=== PATIENT | female | born 1930 | race Caucasian/White ===

== ENCOUNTER 2016-05-04 14:30 | Inpatient (IN) | payer MEDICARE ==
--- NOTE | 2016-06-09 20:43 | HP ---
HISTORY AND PHYSICAL: DATE OF ADMISSION/SURGERY: 06/15/16 DATE OF OFFICE VISIT: 06/09/16 SURGEON: Yas Obando MD PROCEDURE: Left total hip arthroplasty. CHIEF COMPLAINT: Left hip pain. HISTORY OF PRESENT ILLNESS: Ms. Reddy is an 86-year-old female with complaints of left hip pain. She has severe osteoarthritis seen on x-rays. She has failed conservative management, has elected to proceed with left total hip arthroplasty, which is scheduled for 06/15/16. PAST MEDICAL HISTORY: Diabetes, hypertension, aortic valve stenosis, and mitral valve stenosis. PAST SURGICAL HISTORY: Hernia repair x2 and hysterectomy. CURRENT MEDICATIONS: 1. Lisinopril/hydrochlorothiazide. 2. Atenolol. 3. Metformin. 4. Aspirin. 5. Levsin. 6. Fish oil. 7. Calcium. 8. Vitamin C. 9. Vitamin D3. 10. Women's Multivitamin. 11. Glipizide. ALLERGIES: To TINCTURE OF BENZOIN. FAMILY HISTORY: Unknown. SOCIAL HISTORY: She is an 86-year-old female, she lives alone. She does not smoke, use drugs or alcohol. REVIEW OF SYSTEMS: A complete 14-point review of systems is reviewed with patient and it was positive for diabetes. She denies any anesthesia problems, history of DVT or PE. PHYSICAL EXAMINATION GENERAL: She is well-developed, well-nourished, in no acute distress. VITAL SIGNS: She stands 5 feet 2 inches tall, weighs 152 pounds, her blood pressure 154/74, and heart rate 63. HEENT: Normocephalic, atraumatic. NECK: Supple. No palpable lymph nodes. Trachea is midline. PULMONARY: The lungs are clear to auscultation bilaterally. No wheezes, rhonchi , or rales. CARDIO: Regular rate and rhythm. Strong S1 and S2. No murmurs, rubs, or gallops. No peripheral edema. ABDOMEN: Soft, nontender, and nondistended. NEUROLOGIC: She is alert and oriented x3. Cranial nerves II through XII are intact. MUSCULOSKELETAL: Left lower extremity, the skin is intact. She walks with a slightly antalgic-type gait favoring her left leg. She has limited range of motion with internal and external rotation of the left hip. Her lower extremity muscle group strengths are intact at 5/5. She has intact sensation and 2+ dorsalis pedis pulses. ASSESSMENT AND PLAN: Ms. Reddy is an 86-year-old female with continued complaints of left hip pain secondary to advanced osteoarthritis. She has failed conservative management, has elected to proceed with a left total hip arthroplasty which is scheduled for 06/15/[address] Obando discussed the risks and benefits of the surgery at today's visit and all other questions were answered. Coumadin, Colace, and Percocet were sent to her pharmacy for postoperative pain control and DVT prophylaxis. She will follow up with Dr. Obando in 14 days after the surgery. BALTA GAMBAO [id number]/[facility] #: [id number] MTDD
[2016-06-15] MEDS ORDERED: Buffered Lidocaine 1% SYR 3ML* 3 ML/SYR SYRINGE INTRADERM ONE (06:00)
[2016-06-15] MEDS ORDERED: ceFAZolin 2 GM PREMIX (*) 2 GM/50 ML BAG IVPB ONE (12:02)
[2016-06-15] MEDS ORDERED: fentaNYL* 50 MCG/ML 2 ML VIAL (100 MCG VIAL) ONE ×2 (12:54→16:22)
[2016-06-15] MEDS ORDERED: Midazolam* 1 MG/ML 2 ML VIAL (2 MG) ONE (12:54)
[2016-06-15] MEDS ORDERED: Bupivacaine 0.5% SDV PF* 30 ML VIAL ONE (13:00)
[2016-06-15] MEDS ORDERED: Atracurium* 10 MG/ML 10 ML VIAL ONE (13:07)
[2016-06-15] MEDS ORDERED: EPHEDrine (Pressors)* 50 MG/ML VIAL ONE (13:41)
[2016-06-15] MEDS ORDERED: Lidocaine 2% PF * 5 ML VIAL ONE (13:41)
[2016-06-15] MEDS ORDERED: Propofol* 10 MG/ML 20 ML BTL IV PUSH ONE (13:41)
[2016-06-15] MEDS ORDERED: Morphine INJ* 10 MG/ML 1 ML CARPUJECT ONE (14:12)
[2016-06-15] MEDS ORDERED: fentaNYL* 50 MCG/ML 2 ML VIAL (100 MCG VIAL) IV PRN (14:21)
[2016-06-15] MEDS ORDERED: Ondansetron ODT TAB* 4 MG PO PRN (14:21)
[2016-06-15] MEDS ORDERED: Ketorolac INJ* 30 MG/ML 1 ML VIAL IV PRN (14:21)
[2016-06-15] MEDS ORDERED: HYDROmorphone INJ* 1 MG/ML CARPUJECT SYRINGE IV PRN (14:21)
[2016-06-15] MEDS ORDERED: DiMENhydriNATE IV* 50 MG/ML VIAL IV PUSH PRN (14:21)
[2016-06-15] MEDS ORDERED: oxyCODONE/Acetamin 5/325 MG* TAB PO PRN (15:26)
[2016-06-15] MEDS ORDERED: Morphine INJ* 2 MG/ML 1 ML CARPUJECT IV PRN (15:26)
[2016-06-15] MEDS ORDERED: Ondansetron TAB* 4 MG PO PRN (15:26)
[2016-06-15] MEDS ORDERED: Polyethylene Glycol 3350* 17 GM PACKET PO PRN (15:26)
[2016-06-15] MEDS ORDERED: Acetaminophen TAB* 325 MG PO PRN (15:26)
[2016-06-15] MEDS ORDERED: oxyCODONE TAB* 5 MG TAB PO PRN (15:26)
[2016-06-15] MEDS ORDERED: Ondansetron INJ* 2 MG/ML VIAL IV PRN (15:26)
[2016-06-15] MEDS ORDERED: diPHENhydraMINE IV* 50 MG/ML 1 ml VIAL (BENADRYL) IV PRN (15:26)
[2016-06-15] MEDS ORDERED: Bisacodyl SUPP* 10 MG SUPP PR PRN (15:26)
--- NOTE | 2016-06-15 15:34 | RAD ---
INDICATION: Left total hip replacement COMPARISON: Hips March 08, 2016 TECHNIQUE/findings: A single crosstable lateral portable view the pelvis shows initiation of left hip arthroplasty with a femoral stem placed for sizing.
[2016-06-15] MEDS ORDERED: Ketorolac INJ* 30 MG/ML 1 ML VIAL ONE (16:22)
--- NOTE | 2016-06-15 16:48 | RAD ---
INDICATION: Left total hip replacement COMPARISON: Pelvis June 15, 2016 TECHNIQUE: AP and crosstable lateral views of the left hip were obtained FINDINGS: There is left hip arthroplasty. The prosthesis appears well seated IMPRESSION: STATUS POST LEFT HIP ARTHROPLASTY.
--- NOTE | 2016-06-15 16:49 | RAD ---
INDICATION: Left hip arthroplasty COMPARISON: Hips March 08, 2016 TECHNIQUE: A single AP view of the pelvis is submitted. FINDINGS: There is left hip arthroplasty. Both femoral and acetabular components appear well seated. There is underlying osteopenia. There is osteoarthritis about the right hip. IMPRESSION: LEFT HIP ARTHROPLASTY. THE PROSTHESIS APPEARS WELL SEATED.
[2016-06-15] MEDS ORDERED: Warfarin TAB(*) 6 MG PO ONE (20:00)
[2016-06-15] MEDS: Docusate CAP* 100 MG PO SCH (20:41)
[2016-06-15] MEDS ORDERED: Dextrose 50% Syringe 50 ML* 25 GM/50 ML SYRINGE IV PUSH PRN (20:44)
[2016-06-15] MEDS ORDERED: metFORMIN* 1,000 MG TAB PO SCH (21:00)
[2016-06-15] MEDS: Atenolol TAB* 50 MG PO SCH (21:40)
[2016-06-15] MEDS: ceFAZolin 1 GM in Dextrose (*) 1 GM/50 ML BAG IVPB SCH (21:40)
[2016-06-16] MEDS: ceFAZolin 1 GM in Dextrose (*) 1 GM/50 ML BAG IVPB SCH ×2 (05:13→13:41)
[2016-06-16] MEDS: oxyCODONE/Acetamin 5/325 MG* TAB PO PRN ×4 (05:23→21:03)
[2016-06-16 06:09] LABS: Hematocrit 34 % (35-47); Hemoglobin 11.4 g/dl (12.0-16.0); Mean Corpuscular HGB Conc 33 g/dl (31-36); Mean Corpuscular Hemoglobin 30 pg (27-31); Mean Corpuscular Volume 89 fL (80-97); Mean Platelet Volume 8 um3 (7.4-10.4); Red Blood Count 3.83 10^6/ul (4.0-5.4); Red Cell Distribution Width 14 % (10.5-15)
[2016-06-16 06:22] LABS: BUN/Creatinine Ratio 22.2 (8-20); Calcium 8.4 mg/dL (8.6-10.3); EGFR African American 99.2 (>60); EGFR Non-African American 77.2 (>60); Potassium 4.1 mmol/L (3.5-5.0)
--- NOTE | 2016-06-16 07:40 | PN ---
Progress Note - Progress Note SOAP: Subjective: Pt. is confused this AM, thinks it is Tuesday. Alert to person and place. Objective: LLE - dressing c/d/i, thigh soft, distally +df/pf, full sens lt, 2+ dp pulse. Vital Signs: Temp Pulse Resp BP Pulse Ox 98.2 F 69 16 103/42 97 06/16/16 07:25 06/16/16 07:25 06/16/16 07:25 06/16/16 07:25 06/16/16 07:25 Laboratory Results - last 24 hr 06/15/16 06/15/16 06/16/16 12:26 21:43 05:51 WBC 13.0 H RBC 3.83 L Hgb 11.4 L Hct 34 L MCV 89 MCH 30 MCHC 33 RDW 14 Plt Count 177 MPV 8 Neut % (Auto) 77.3 Lymph % (Auto) 14.3 L Ward % (Auto) 8.0 Eos % (Auto) 0.1 Baso % (Auto) 0.3 Absolute Neuts (auto) 10.1 H Absolute Lymphs (auto) 1.9 Absolute Monos (auto) 1.0 H Absolute Eos (auto) 0 Absolute Basos (auto) 0 Absolute Nucleated RBC 0 Nucleated RBC % 0 INR (Anticoag Therapy) Sodium Potassium Chloride Carbon Dioxide Anion Gap BUN Creatinine Est GFR ( Amer) Est GFR (Non-Af Amer) BUN/Creatinine Ratio Glucose POC Glucose (mg/dL) 135 H 140 H Calcium 06/16/16 06/16/16 06/16/16 05:51 05:51 07:33 WBC RBC Hgb Hct MCV MCH MCHC RDW Plt Count MPV Neut % (Auto) Lymph % (Auto) Ward % (Auto) Eos % (Auto) Baso % (Auto) Absolute Neuts (auto) Absolute Lymphs (auto) Absolute Monos (auto) Absolute Eos (auto) Absolute Basos (auto) Absolute Nucleated RBC Nucleated RBC % INR (Anticoag Therapy) 1.14 H Sodium 131 L Potassium 4.1 Chloride 97 L Carbon Dioxide 30 Anion Gap 4 BUN 16 Creatinine 0.72 Est GFR ( Amer) 99.2 Est GFR (Non-Af Amer) 77.2 BUN/Creatinine Ratio 22.2 H Glucose 169 H POC Glucose (mg/dL) 157 H Calcium 8.4 L Assessment: 86 yo F pod 1 s/p LTHA Plan: wbat lle with post hip precautions pt/ot today oobtc for meals 6 mg coumadin tonight, cont lovenox plan pmru vs snf
[2016-06-16] MEDS: Insulin LISPRO* 1 UNITS UNIT SUBCUT SCH ×3 (08:09→17:52)
[2016-06-16] MEDS: Docusate CAP* 100 MG PO SCH ×2 (08:10→21:03)
[2016-06-16] MEDS: Atenolol TAB* 50 MG PO SCH ×2 (08:10→21:00)
[2016-06-16] MEDS ORDERED: Lisinopril TAB* 10 MG PO SCH (09:00)
[2016-06-16] MEDS: Enoxaparin(*) 30 MG/0.3 ML SYR SUBCUT SCH (12:43)
--- NOTE | 2016-06-16 13:30 | CONS ---
CONSULTATION REPORT: * DATE OF CONSULTATION: 06/15/16 ADDENDUM: Ms. Reddy is an 86-year-old female with history of diabetes and hypertension, who is status post elective knee surgery performed by Dr. Obando today. Medicine was requested in management of her chronic medical conditions. For further details of the patient's presentation and plan, please see consultation report dictated by Luz Barrera NP on 06/15/16 with which I agree. [id number]/[facility] #: [id number] MTDD
--- NOTE | 2016-06-16 15:01 | CONS ---
AMENDED REPORT NOW INCLUDES COSIGNER - ESIGNED BEFORE ADJUSTMENTS ATTENDING PHYSICIAN ADDENDUM NOW INCLUDED ON THIS REPORT CONSULTATION REPORT: DATE OF CONSULT: 06/15/16 PRIMARY CARE PROVIDER: Dr. Merrick Mccullough. ATTENDING PHYSICIAN: Dr. Edna Abel *(dictated by Luz Nava NP) PHYSICIAN REQUESTING CONSULTATION: Yas Obando MD REASON FOR CONSULTATION: Co-medical management. HISTORY OF PRESENT ILLNESS: Ms. Reddy is an 86-year-old female with past medical history significant for diabetes mellitus, hypertension, and osteoarthritis who underwent an elective left total hip arthroplasty with Dr. Obando. Postoperatively, the patient is doing well. The patient states that leading up to her surgery, she has been in a good state of health with the exception of left hip pain. The patient denies any fever, chills, chest pain, shortness of breath or edema. Hospitalists were asked to assist with the management of this patient during the postoperative period. PAST MEDICAL HISTORY: 1. Diabetes mellitus type 2. 2. Hypertension. 3. Aortic valve stenosis and mitral valve stenosis. 4. Osteoarthritis. PAST SURGICAL HISTORY: 1. Status post hernia repair x2. 2. Status post hysterectomy in 1966. HOME MEDICATIONS: Include: 1. Metformin 1000 mg oral twice daily. 2. Fluzone in 2016. 3. Lisinopril 20 mg oral daily. 4. Hydrochlorothiazide 25 mg oral daily. 5. Atenolol 100 mg oral twice daily. 6. Tylenol 650 mg oral 4 times daily as needed for fever or pain. 7. Glipizide ER 10 mg oral daily. 8. Aspirin 325 mg oral daily. 9. Multivitamin one tablet oral daily. 10. Vitamin D3 2000 units oral daily. 11. Calcium/vitamin D 600/800 two tablets daily. 12. Vitamin C 500 mg oral daily. 13. Fish oil 2000 mg oral daily. 14. Lecithin 1200 mg oral daily. ALLERGIES: Tincture of benzoin. FAMILY HISTORY: The patient's father passed at age 97 from old age. The patient's mother had a history of diabetes and passed at age 79 due to bladder cancer. The patient had a maternal uncle with history of diabetes. The patient denied any other family history of coronary artery disease, cancer, or diabetes mellitus. SOCIAL HISTORY: The patient denies tobacco, alcohol, or recreational drug use. She lives alone. Her daughter, Agnieszka Lopez, and son, Arnaldo Ibrahim, will be her surrogate decision makers in the event she is unable to make decisions for herself. REVIEW OF SYSTEMS: I performed a 14-point review of systems. All the pertinent positives and negatives are mentioned in the history of present illness. The remaining review of systems are negative. PHYSICAL EXAMINATION: Vital Signs: Temperature 96.8, heart rate 50, respiratory rate 12, O2 sat 100% on 2 L via nasal cannula, blood pressure 160/ 68. Appearance: The patient is alert, appears to be in no acute distress. HEENT: Normocephalic, atraumatic. Pupils are equal and reactive to light. Extraocular movements are intact. Neck: Supple. There is no lymphadenopathy noted. Cardiovascular: Regular rate and rhythm. S1 and S2 are crisp. There are no murmurs, rubs, or gallops heard. Extremities: There is no lower extremity edema. DP and PT pulses are 2+ and symmetric. Respiratory: There is no accessory muscle use. Lungs are clear to auscultation bilaterally. Abdomen: Soft, nontender, nondistended. There are bowel sounds present x4. Musculoskeletal: There is no clubbing or cyanosis noted. The patient exhibits good strength in all extremities. Skin: There is a dressing to the left hip that is clean, dry, and intact. Neurological: Cranial nerves II through XII are grossly intact. The patient moves all extremities. Psychological: The patient is calm and cooperative. DIAGNOSTIC STUDIES/LAB DATA: Preoperative laboratory data from 06/09/16 - sodium 133, potassium 4.0, chloride 94, CO2 33, BUN 17, creatinine 0.78, glucose 118. White blood cell count 10.6, hemoglobin 14.5, hematocrit 43, and platelet count 243. Urinalysis was significant for trace leukocyte esterase, 1 + wbc's, squamous epithelial cells present, 1+ bacteria, and glucose 2+. Pelvis x-ray from today at 1330. Radiologist impression: A single cross-table lateral portable view of the pelvis shows initiation of left hip arthroplasty with a femoral stent placed for sizing. Left hip x-ray from today. Radiologist impression: Status post left hip arthroplasty. Pelvis x-ray from today at 1600. Radiologist's impression: Left hip arthroplasty. The prosthesis appears well seated. IMPRESSION: Ms. Reddy is an 86-year-old female with past medical history significant for diabetes mellitus, hypertension, aortic valve and mitral valve stenosis and osteoarthritis, who underwent an elective left total hip arthroplasty with Dr. Obando. Hospitalists were asked to assist with co- management of this patient during her hospitalization. PLAN: 1. Status post left total hip arthroplasty. Postoperative day. Management per Orthopedic Surgery. The patient's hemoglobin and hematocrit will be trended. She will start physical therapy and occupational therapy in the morning. The patient's urinary catheter will remain in place until the morning of postop day #1. The patient will be weightbearing as tolerated. 2. Hypertension. In the perioperative period, we will hold the patient's hydrochlorothiazide and lisinopril. Her atenolol will be continued. We will consider resuming the patient's lisinopril and hydrochlorothiazide in the morning based off of her blood pressures. 3. Diabetes mellitus. We will hold the patient's glipizide and metformin. She will be placed on lispro sliding scale insulin coverage with fingersticks a.c. and h.s. 4. Fluids, electrolytes, and nutrition. The patient will be on a clear liquid diet. Advance as tolerated to consistent carbohydrate diet. 5. DVT prophylaxis. The patient will be on Lovenox and warfarin per Orthopedic Surgery. 6. Code status. Full code. DISPOSITION: Inpatient. Disposition per Orthopedic Surgery. TIME SPENT: The time for this consultation was 60 minutes, and 30 minutes was spent [id number] with the patient and daughter discussing medications, past medical history and the events leading up to her arrival today and performing a physical examination. The case has been reviewed with the attending, Dr. Abel, who agrees with the plan of care. Reviewed by ADAMS BLANCO 06/16/16 1700 DATE OF CONSULTATION: 06/15/16 ADDENDUM: Ms. Reddy is an 86-year-old female with history of diabetes and hypertension, who is status post elective knee surgery performed by Dr. Obando today. Medicine was requested in management of her chronic medical conditions. For further details of the patient's presentation and plan, please see consultation report dictated by Luz Nava NP on 06/15/16 with which I agree. EDNA ABEL MD CC: Dr. Merrick Mccullough; Dr. Obando * [id number]/[facility] #: [id number] A- [id number]/[facility] #: [id number] [facility]
--- NOTE | 2016-06-16 16:43 | PN ---
Subjective Date of Service: 06/16/16 Interval History: Patient seen and examined at bedside. Pt states that she is feeling well today, but had some pain issues around afternoon Physical Therapy. Denies fever, chills , shortness of breath, chest discomfort, urinary symptoms, V/D. Pt reports some nausea earlier today. Pt also states that she was treated for a UTI last week, completing her treatment on Tuesday. Family History: Unchanged from Admission Social History: Unchanged from Admission Past Medical History: Unchanged from Admission Objective Active Medications: Acetaminophen (Tylenol Tab*) 650 mg PO Q4H PRN Reason: PAIN OR TEMPERATURE Atenolol (Tenormin Tab*) 100 mg PO BID JOANNA Bisacodyl (Dulcolax Supp*) 10 mg RI DAILY PRN Reason: constipation Dextrose (D50w Syringe 50 Ml*) 12.5 gm IV PUSH .FOR FS < 60 - SS PRN Reason: FS < 60 Diphenhydramine HCl (Benadryl Iv*) 12.5 mg IV Q6H PRN Reason: PRURITIS Docusate Sodium (Colace Cap*) 100 mg PO BID JOANNA Enoxaparin Sodium (Lovenox(*)) 30 mg SUBCUT Q24H JOANNA Lactated Ringer's (Lactated Ringers 1000 Ml Bag*) 1,000 mls @ 100 mls/hr IV PER RATE [facility] Insulin Human Lispro (Humalog*) 0 - 10 units SUBCUT AC [facility] Reason: Protocol Lactulose (Lactulose*) 30 ml PO Q6H PRN Reason: constipation Lisinopril (Prinivil Tab*) 20 mg PO DAILY [facility] Magnesium Hydroxide (Milk Of Magnesia Liq*) 30 ml PO Q6H PRN Reason: constipation Morphine Sulfate (Morphine Inj (Syringe)*) 2 mg IV Q2H PRN Reason: PAIN Ondansetron HCl (Zofran Inj*) 4 mg IV Q6H PRN Reason: nausea Ondansetron HCl (Zofran Tab*) 4 mg PO Q6H PRN Reason: NAUSEA Oxycodone HCl (Roxycodone Tab*) 10 mg PO Q4H PRN Reason: SEVERE PAIN Oxycodone/Acetaminophen (Percocet 5/325 Tab*) 1 tab PO Q3H PRN Reason: PAIN - MODERATE Oxycodone/Acetaminophen (Percocet 5/325 Tab*) 2 tab PO Q3H PRN Reason: PAIN - MODERATE Polyethylene Glycol/Electrolytes (Miralax*) 17 gm PO DAILY PRN Reason: Constipation Warfarin Sodium (Coumadin Tab(*)) 6 mg PO DAILY@1700 JOANNA Vital Signs 06/15/16 06/15/16 06/15/16 16:25 16:30 16:45 Temperature Pulse Rate 59 54 Respiratory 14 12 10 Rate Blood Pressure 164/79 166/73 (mmHg) O2 Sat by Pulse 99 100 Oximetry 06/15/16 06/15/16 06/15/16 17:00 17:15 17:30 Temperature 96.8 F Pulse Rate 60 51 50 Respiratory 12 10 12 Rate Blood Pressure 164/70 167/83 160/68 (mmHg) O2 Sat by Pulse 100 100 100 Oximetry 06/15/16 06/15/16 06/15/16 18:00 18:30 19:00 Temperature Pulse Rate 50 52 52 Respiratory 16 16 18 Rate Blood Pressure 138/62 163/68 164/66 (mmHg) O2 Sat by Pulse 100 100 100 Oximetry 06/15/16 06/15/16 06/15/16:17 20:17 21:18 Temperature 97.2 F 98.2 F 96.9 F Pulse Rate 55 52 58 Respiratory 18 16 16 Rate Blood Pressure 188/72 149/63 152/63 (mmHg) O2 Sat by Pulse 100 100 98 Oximetry 06/15/16 06/16/16 06/16/16 23:29 00:00 01:22 Temperature 97.8 F 97.8 F Pulse Rate 58 61 Respiratory 16 16 Rate Blood Pressure 146/57 155/55 (mmHg) O2 Sat by Pulse 100 100 100 Oximetry 06/16/16 06/16/16 06/16/16 04:13 05:23 07:23 Temperature 98.4 F Pulse Rate 68 Respiratory 16 18 16 Rate Blood Pressure 156/60 (mmHg) O2 Sat by Pulse 100 Oximetry 06/16/16 06/16/16 06/16/16 07:25 07:53 08:00 Temperature 98.2 F Pulse Rate 69 Respiratory 16 18 Rate Blood Pressure 103/42 118/58 (mmHg) O2 Sat by Pulse 97 97 Oximetry 06/16/16 06/16/16 06/16/16 08:43 10:43 11:38 Temperature 98.0 F Pulse Rate 63 Respiratory 18 16 16 Rate Blood Pressure 98/34 (mmHg) O2 Sat by Pulse 100 Oximetry 06/16/16 06/16/16 06/16/16 11:42 12:44 14:17 Temperature Pulse Rate Respiratory 18 18 Rate Blood Pressure 102/40 (mmHg) O2 Sat by Pulse Oximetry 06/16/16 06/16/16 15:15 16:02 Temperature 97.9 F Pulse Rate 71 Respiratory 18 Rate Blood Pressure 103/37 128/54 (mmHg) O2 Sat by Pulse 94 Oximetry Oxygen Devices in Use Now: None Appearance: NAD, laying in bed. Eyes: No Scleral Icterus, PERRLA Ears/Nose/Mouth/Throat: NL Teeth, Lips, Gums, Mucous Membranes Moist Neck: NL Appearance and Movements; NL JVP, Trachea Midline Respiratory: Symmetrical Chest Expansion and Respiratory Effort, Clear to Auscultation Cardiovascular: RRR, - Abdominal: NL Sounds; No Tenderness; No Distention - Bowel sounds present Extremities: No Edema Skin: No Rash or Ulcers, - - Dressing to left hip clean, dry and intact. Neurological: Alert and Oriented x 3, NL Muscle Strength and Tone Lines/Tubes/Other Access: Clean, Dry and Intact Peripheral IV - site benign. Nutrition: Taking PO's Result Diagrams: 06/16/16 05:51 06/16/16 05:51 Assess/Plan/Problems-Billing Assessment: Ms. Reddy is an 86 yo femalw with PMH significant for DM, HTN, AV and MV stenosis, and osteoarthritis who presented to the hospital for an elective left total hip arthroplasty with Dr. Obando on 06/15/16. - Patient Problems (1) Status post total hip replacement, left Code(s): Z96.642 - PRESENCE OF LEFT ARTIFICIAL HIP JOINT SNOMED Code(s): 184812971055 Comment: - Management per Ortho - Continue to trend HH - Continue PT/OT, pain managment, bowel regime (2) Diabetes Code(s): E11.9 - TYPE 2 DIABETES MELLITUS WITHOUT COMPLICATIONS SNOMED Code(s) : 18082182 Comment: - Controlled, glucose 150-180's - Continue Lispro SS - Resume home oral medications at discharge (3) HTN (hypertension) Code(s): I10 - ESSENTIAL (PRIMARY) HYPERTENSION SNOMED Code(s): 87746152 Comment: - SBP 90-150's - Continue Atenolol with hold parameters - Continue to hold lisinopril and HCTZ for now (4) DVT prophylaxis Code(s): LEX5355 - SNOMED Code(s): 707225660 Comment: - Continue Lovenox and Warfarin per Ortho (5) Full code status Code(s): Z78.9 - OTHER SPECIFIED HEALTH STATUS SNOMED Code(s): 571897151 Status and Disposition: Inpatient. Disposition per Ortho
[2016-06-16] MEDS ORDERED: Warfarin TAB(*) 6 MG PO SCH (17:00)
--- NOTE | 2016-06-16 22:54 | OP ---
DATE OF OPERATION: 06/15/16 - ROOM #349 DATE OF : 34 ATTENDING SURGEON: Yas Obando MD. PROCESS TRAINER: BALTA Foster. ANESTHESIOLOGIST: Dr. Pettit. ANESTHESIA: Spinal with general. 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 OPERATIVE PROCEDURE: Left total hip arthroplasty. HARDWARE USED: Uncemented Sha total hip hardware. For the cup, a Trident hemispherical acetabular shell 50D, two screws, length 20 were used. For the insert, a Trident X3 0-degree polyethylene insert 36D. For the femoral stem, an Accolade TMZF size 3, with a 127 degree neck. For the head, a Biolox delta ceramic V40 femoral head, 36, -5. COMPLICATIONS: None. ESTIMATED BLOOD LOSS: 300 cc. SPECIMEN: Femoral head and acetabular reaming, sent to Pathology. BRIEF HISTORY/INDICATIONS: Ms. Denney is an 86-year-old female with years of increasingly severe left hip pain. She failed conservative treatment with antiinflammatories, pain medications, ambulatory assistive devices, and physical therapy. Radiographs showed [id number] arthritis of the left hip joint as well as protrusio of the acetabulum. A CT scan confirmed this. The patient elected to undergo a left total hip arthroplasty due to continued pain and decreased quality of life. Informed consent was obtained from the patient. She understood the risks of surgery included, but were not limited to, bleeding, infection, damage to nearby structures, continued pain, need for further surgery, intraoperative fracture, nerve palsy, hardware failure, loosening, dislocation, leg length discrepancy, stroke, heart attack, blood clot , and . She wished to proceed. Specific to this patient were increased risk of intraoperative fracture due to osteopenia and acetabular protrusio. INTRAOPERATIVE FINDINGS: Intraoperatively, the patient was noted to have the above mentioned protrusio of the acetabulum. This made dislocation of the hip very difficult. Extensive deformation of both the acetabular and femoral head bone. Complete loss of cartilage. Extensive subchondral sclerosis was noted. Osteopenia was noted. DESCRIPTION OF PROCEDURE: Ms. Reddy was identified in the preanesthesia unit. Her left lower extremity was marked as the correct operative site. Informed consent was signed and placed in the chart. The patient was taken to the operating room and placed under spinal anesthesia. A Garzon catheter was placed. The patient was placed in the right lateral decubitus position on the Pegboard. All bony prominences were well padded. Lower extremity was prepped and dapped in the usual sterile fashion. Preop time-out was made to correctly identify the patient side and site. Appropriate perioperative antibiotics were given within 1 hour of incision. A 12-cm posterior hip incision was made with a 10-blade. Electrocautery was used to dissect down to the fascial layer. Fascial layer incised in line with the skin incision. Charnley retractor was placed and the posterior aspect of the hip joint was visualized. The piriformis and conjoint tendons were identified. These were elevated off the posterolateral femur using electrocautery and tagged with two #5 Ethibond. Next the posterior capsular flap was made with electrocautery and also tagged with two #5 Ethibond. Posterior aspect of the hip joint was visualized. There was extensive osteophyte formation. Some posterior acetabular osteophytes were carefully removed. The hip was carefully dislocated. Dislocating the hip was difficult due to the extreme deformation of the acetabular and femoral head. Using gentle dislocation maneuver, the hip was carefully dislocated. Lesser trochanter to the center of the femoral head measured 50 mm. Oscillating saw was used to make the appropriate femoral neck cut. Femoral head was sent to Pathology after bone graft was collected from it. The femur was carefully retracted anteriorly. After appropriate placement of retractors, the acetabulum was visualized. There was a large osteophyte rim around the acetabulum. Long-handled knife was used to remove any remaining labrum from the acetabular rim. The acetabulum was then sequentially reamed up to a size 50. A small curette was used to remove cystic material from some subchondral cyst. This area was then packed with femoral head bone graft. The 50 trial had good fit in the acetabulum. There was a bleeding bone bed. Size 50 multihole Trident acetabular cuff was chosen. This was impacted into the acetabulum. The cuff had good stability. Two 20-mm screws were placed in the superior posterior quadrant for extra stability. A 36-D Trident X30 liner was chosen. This was impacted into the acetabulum without difficulty. Stability of the liner was checked and rechecked and noted to be stable. Attention was then turned to preparation of the femur. Canal finder was used to enter the proximal femur and once again osteopenia was noted. The femoral canal was sequentially broached up to a size 3. A 127-degree neck trial was chosen as well as a 36, -5 femoral head trial. Lesser trochanter to the center of the head measured 50 mm. The hip was reduced and taken through range of motion. The hip was stable in all positions. Good soft tissue tension and leg lengths were approximate. The hip was carefully dislocated. All trials were carefully removed. Final implant was chosen with an Accolade TMZF size 3 with a 127-degree neck. This was impacted into the femoral canal without difficulty. The stem was stable. A 36, -5 ceramic Biolox delta V40 femoral head was chosen and impacted on to the femoral neck. The hip was reduced and taken through a range of motion. The hip was stable in all positions. There was good soft tissue tension and approximate leg length. The hip was copiously irrigated with sterile saline. The previously tagged capsule and tendons were reapproximated to the posterolateral femur through two trochanteric drill holes. The lateral fascial layer was reapproximated using interrupted #1 Vicryl. The rest of the incision was closed in a layered fashion using 0 and 2-0 Vicryl. The skin was closed using running 3-0 Monocryl suture with Dermabond. Sterile Adaptic, 4 x 4, and paper tapes were used to cover the incision. The patient's anesthesia was reversed without difficulty. She was taken to the PACU in stable condition. Intended weightbearing will be weightbearing as tolerated with posterior hip precautions. Intended DVT prophylaxis will be Coumadin with a Lovenox bridge. [id number]/[facility] #: [id number] [facility] CENTERMadisyn
[2016-06-17] MEDS: oxyCODONE/Acetamin 5/325 MG* TAB PO PRN ×3 (03:56→12:51)
[2016-06-17 04:58] LABS: Hematocrit 29 % (35-47); Hemoglobin 9.5 g/dl (12.0-16.0); Mean Corpuscular HGB Conc 33 g/dl (31-36); Mean Corpuscular Hemoglobin 29 pg (27-31); Mean Corpuscular Volume 90 fL (80-97); Mean Platelet Volume 8 um3 (7.4-10.4); Red Blood Count 3.23 10^6/ul (4.0-5.4); Red Cell Distribution Width 13 % (10.5-15); White Blood Count 13.9 10^3/ul (3.5-10.8)
[2016-06-17 05:13] LABS: BUN/Creatinine Ratio 22.5 (8-20); Calcium 8.5 mg/dL (8.6-10.3); EGFR African American 100.9 (>60); EGFR Non-African American 78.4 (>60); Potassium 3.6 mmol/L (3.5-5.0)
[2016-06-17] MEDS: Insulin LISPRO* 1 UNITS UNIT SUBCUT SCH ×3 (07:40→17:31)
--- NOTE | 2016-06-17 08:36 | PN ---
Progress Note - Progress Note SOAP: Subjective: []Patient seen at bedside, eating breakfast. Alert and oriented X3. Feels well. Pain well managed. Denies SOB, chest pain or dizziness. Deciding with family where she would like to go for rehabilitation. Objective: [] Vital Signs Temp 97.9 F 06/17/16 07:24 Pulse 73 06/17/16 07:24 Resp 20 06/17/16 07:24 BP 110/44 06/17/16 07:36 Pulse Ox 95 06/17/16 07:24 Intake & Output 06/16/16 06/17/16 06/17/16 18:59 06:59 18:59 Intake Total 2230 900 Output Total 250 700 150 Balance 1979 200 -150 Intake: IV Fluids 1130 LR 1030 cefazolin 100 Oral 1100 900 Output: Urine 250 700 150 Other: # Bowel Movements 0 Laboratory Results - last 24 hr 06/16/16 06/16/16 06/16/16 12:12 17:38 21:01 WBC RBC Hgb Hct MCV MCH MCHC RDW Plt Count MPV Neut % (Auto) Lymph % (Auto) [place] % (Auto) Eos % (Auto) Baso % (Auto) Absolute Neuts (auto) Absolute Lymphs (auto) Absolute Monos (auto) Absolute Eos (auto) Absolute Basos (auto) Absolute Nucleated RBC Nucleated RBC % INR (Anticoag Therapy) Sodium Potassium Chloride Carbon Dioxide Anion Gap BUN Creatinine Est GFR ( Amer) Est GFR (Non-Af Amer) BUN/Creatinine Ratio Glucose POC Glucose (mg/dL) 188 H 163 H 194 H Calcium 06/17/16 06/17/16 06/17/16 04:15 04:15 04:15 WBC 13.9 H RBC 3.23 L Hgb 9.5 L Hct 29 L MCV 90 MCH 29 MCHC 33 RDW 13 Plt Count 152 MPV 8 Neut % (Auto) 69.5 Lymph % (Auto) 21.0 L [place] % (Auto) 7.8 Eos % (Auto) 0.9 Baso % (Auto) 0.8 Absolute Neuts (auto) 9.6 H Absolute Lymphs (auto) 2.9 Absolute Monos (auto) 1.1 H Absolute Eos (auto) 0.1 Absolute Basos (auto) 0.1 Absolute Nucleated RBC 0 Nucleated RBC % 0 INR (Anticoag Therapy) 1.45 H Sodium 126 L Potassium 3.6 Chloride 94 L Carbon Dioxide 27 Anion Gap 5 BUN 16 Creatinine 0.71 Est GFR ( Amer) 100.9 Est GFR (Non-Af Amer) 78.4 BUN/Creatinine Ratio 22.5 H Glucose 164 H POC Glucose (mg/dL) Calcium 8.5 L 06/17/16 07:34 WBC RBC Hgb Hct MCV MCH MCHC RDW Plt Count MPV Neut % (Auto) Lymph % (Auto) [place] % (Auto) Eos % (Auto) Baso % (Auto) Absolute Neuts (auto) Absolute Lymphs (auto) Absolute Monos (auto) Absolute Eos (auto) Absolute Basos (auto) Absolute Nucleated RBC Nucleated RBC % INR (Anticoag Therapy) Sodium Potassium Chloride Carbon Dioxide Anion Gap BUN Creatinine Est GFR ( Amer) Est GFR (Non-Af Amer) BUN/Creatinine Ratio Glucose POC Glucose (mg/dL) 170 H Calcium Left hip dressing taken down and changed Wound without any drainage, healing well calf non tender and soft +DF and PF neuro intact distally Assessment: []s/p Left total hip arthroplasty POD #2 Plan: []PT/OT WBAT Coumadin with Lovenox bridge PMRU vs SNF rehab, possibly 06/18
[2016-06-17] MEDS: Docusate CAP* 100 MG PO SCH ×2 (08:53→22:19)
[2016-06-17] MEDS: Magnesium Hydroxide LIQ* 30 ML UDC PO PRN ×2 (08:54→14:30)
[2016-06-17] MEDS: Atenolol TAB* 50 MG PO SCH ×2 (11:40→22:19)
[2016-06-17] MEDS: Enoxaparin(*) 30 MG/0.3 ML SYR SUBCUT SCH (12:49)
--- NOTE | 2016-06-17 12:58 | PN ---
Subjective Date of Service: 06/17/16 Interval History: Patient seen and examined at bedside. Denies fever, chills, shortness of breath , chest discomfort, N/V/D, urinary symptoms. Pt feels more forgetful today. Pt states she was able to ambulate to the door this AM with PT. Family History: Unchanged from Admission Social History: Unchanged from Admission Past Medical History: Unchanged from Admission Objective Active Medications: Acetaminophen (Tylenol Tab*) 650 mg PO Q4H PRN Reason: PAIN OR TEMPERATURE Atenolol (Tenormin Tab*) 100 mg PO BID JOANNA Bisacodyl (Dulcolax Supp*) 10 mg MD DAILY PRN Reason: constipation Dextrose (D50w Syringe 50 Ml*) 12.5 gm IV PUSH .FOR FS < 60 - SS PRN Reason: FS < 60 Diphenhydramine HCl (Benadryl Iv*) 12.5 mg IV Q6H PRN Reason: PRURITIS Docusate Sodium (Colace Cap*) 100 mg PO BID JOANNA Enoxaparin Sodium (Lovenox(*)) 30 mg SUBCUT Q24H JOANNA Insulin Human Lispro (Humalog*) 0 - 10 units SUBCUT AC JOANNA Reason: Protocol Lactulose (Lactulose*) 30 ml PO Q6H PRN Reason: constipation Magnesium Hydroxide (Milk Of Magnesia Liq*) 30 ml PO Q6H PRN Reason: constipation Morphine Sulfate (Morphine Inj (Syringe)*) 2 mg IV Q2H PRN Reason: PAIN Ondansetron HCl (Zofran Inj*) 4 mg IV Q6H PRN Reason: nausea Ondansetron HCl (Zofran Tab*) 4 mg PO Q6H PRN Reason: NAUSEA Oxycodone HCl (Roxycodone Tab*) 10 mg PO Q4H PRN Reason: SEVERE PAIN Oxycodone/Acetaminophen (Percocet 5/325 Tab*) 1 tab PO Q3H PRN Reason: PAIN - MODERATE Oxycodone/Acetaminophen (Percocet 5/325 Tab*) 2 tab PO Q3H PRN Reason: PAIN - MODERATE Polyethylene Glycol/Electrolytes (Miralax*) 17 gm PO DAILY PRN Reason: Constipation Warfarin Sodium (Coumadin Tab(*)) 4 mg PO ONCE@1700 ONE Stop: 06/17/16 17:01 Vital Signs 02/06/16/16 06/16/16 14:17 14:44 15:15 Temperature 97.9 F Pulse Rate 71 Respiratory 18 18 18 Rate Blood Pressure 103/37 (mmHg) O2 Sat by Pulse 94 Oximetry 06/16/16 06/16/16 06/16/16 16:00 16:02 16:17 Temperature Pulse Rate Respiratory 18 Rate Blood Pressure 128/54 (mmHg) O2 Sat by Pulse 94 Oximetry 06/16/16 06/16/16 06/16/16 19:53 20:00 20:59 Temperature 97.5 F 97.9 F Pulse Rate 62 67 Respiratory 16 18 18 Rate Blood Pressure 95/39 99/40 (mmHg) O2 Sat by Pulse 95 95 Oximetry 06/16/16 06/16/16 06/17/16 21:03 23:03 00:06 Temperature 98.0 F Pulse Rate 78 Respiratory 16 18 16 Rate Blood Pressure 118/48 (mmHg) O2 Sat by Pulse 93 Oximetry 06/17/16 06/17/16 06/17/16 03:56 03:59 05:56 Temperature 98.4 F Pulse Rate 74 Respiratory 18 18 16 Rate Blood Pressure 112/43 (mmHg) O2 Sat by Pulse 94 Oximetry 06/17/16 06/17/16 06/17/16 07:24 07:36 08:00 Temperature 97.9 F Pulse Rate 73 Respiratory 20 16 Rate Blood Pressure 99/39 110/44 (mmHg) O2 Sat by Pulse 95 95 Oximetry 06/17/16 06/17/16 06/17/16 08:54 10:48 10:54 Temperature 97.7 F Pulse Rate 72 Respiratory 18 16 Rate Blood Pressure 88/36 (mmHg) O2 Sat by Pulse 92 Oximetry 06/17/16 11:32 Temperature 97.9 F Pulse Rate 73 Respiratory 20 Rate Blood Pressure 106/37 (mmHg) O2 Sat by Pulse 91 Oximetry Oxygen Devices in Use Now: None Appearance: NAD, sitting up in a chair Eyes: No Scleral Icterus, PERRLA Ears/Nose/Mouth/Throat: NL Teeth, Lips, Gums, Mucous Membranes Moist Neck: NL Appearance and Movements; NL JVP, Trachea Midline Respiratory: Symmetrical Chest Expansion and Respiratory Effort, Clear to Auscultation Cardiovascular: NL Sounds; No Murmurs; No JVD, RRR - , occasional irregular beat Abdominal: NL Sounds; No Tenderness; No Distention Extremities: - - Trace bilateral LE edema Skin: - - Dressing to left hip clean, dry and intact. Neurological: Alert and Oriented x 3 - , forgetful, NL Muscle Strength and Tone Lines/Tubes/Other Access: Clean, Dry and Intact Peripheral IV - site benign Nutrition: Taking PO's Result Diagrams: 06/17/16 04:15 06/17/16 04:15 Assess/Plan/Problems-Billing Assessment: Ms. Reddy is an 86 yo femalw with PMH significant for DM, HTN, AV and MV stenosis, and osteoarthritis who presented to the hospital for an elective left total hip arthroplasty with Dr. Obando on 06/15/16. - Patient Problems (1) Status post total hip replacement, left Code(s): Z96.642 - PRESENCE OF LEFT ARTIFICIAL HIP JOINT SNOMED Code(s): 594195512000 Comment: - POD #2 - Management per Ortho - Continue to trend HH - Continue PT/OT, pain managment, bowel regime (2) Hyponatremia Code(s): E87.1 - HYPO-OSMOLALITY AND HYPONATREMIA SNOMED Code(s): 25849559 Comment: - Suspect related to LR. LR was stopped this AM - Recheck labs in the AM (3) Diabetes Code(s): E11.9 - TYPE 2 DIABETES MELLITUS WITHOUT COMPLICATIONS SNOMED Code(s) : 51363259 Comment: - Controlled, glucose 160-230's - Continue Lispro SS - Resume home oral medications at discharge (4) HTN (hypertension) Code(s): I10 - ESSENTIAL (PRIMARY) HYPERTENSION SNOMED Code(s): 90646213 Comment: - SBP 90-110's - Continue Atenolol with hold parameters - Continue to hold lisinopril and HCTZ for now (5) DVT prophylaxis Code(s): BTR5111 - SNOMED Code(s): 153233975 Comment: - Continue Lovenox and Warfarin per Ortho (6) Full code status Code(s): Z78.9 - OTHER SPECIFIED HEALTH STATUS SNOMED Code(s): 587326724 Status and Disposition: Inpatient. Disposition per Ortho
[2016-06-17] MEDS ORDERED: Warfarin TAB(*) 6 MG PO SCH (17:00)
[2016-06-17] MEDS ORDERED: Warfarin TAB(*) 4 MG PO ONE (17:00)
[2016-06-17] MEDS ORDERED: oxyCODONE TAB* 5 MG TAB PO PRN (19:21)
[2016-06-17] MEDS: Acetaminophen TAB* 325 MG PO SCH (22:20)
[2016-06-18] MEDS: Acetaminophen TAB* 325 MG PO SCH (06:24)
[2016-06-18 07:18] LABS: Hematocrit 28 % (35-47); Hemoglobin 9.3 g/dl (12.0-16.0); Mean Corpuscular HGB Conc 34 g/dl (31-36); Mean Corpuscular Hemoglobin 30 pg (27-31); Mean Corpuscular Volume 89 fL (80-97); Mean Platelet Volume 8 um3 (7.4-10.4); Red Blood Count 3.14 10^6/ul (4.0-5.4); Red Cell Distribution Width 14 % (10.5-15); White Blood Count 12.6 10^3/ul (3.5-10.8)
[2016-06-18 07:31] LABS: BUN/Creatinine Ratio 23.2 (8-20); Calcium 8.5 mg/dL (8.6-10.3); EGFR African American 132.6 (>60); EGFR Non-African American 103.1 (>60)
[2016-06-18 07:36] VITALS: BP 145/58
[2016-06-18] MEDS: Docusate CAP* 100 MG PO SCH (08:47)
[2016-06-18] MEDS: Atenolol TAB* 50 MG PO SCH (08:47)
[2016-06-18] MEDS: Insulin LISPRO* 1 UNITS UNIT SUBCUT SCH (08:48)
--- NOTE | 2016-06-18 10:49 | PN ---
Progress Note - Progress Note SOAP: Subjective: [86 year old female s/p Left BROWN. Patient reports feeling well, admits to confusion around the operative peiord, "I have to remind myself I had surgery". Denies pain, N/V. Overall feeling well. Eager for D/C to [facility]. VSS, + BM] Objective: [General- Well appearing, NAD MSK- Dresssing removed, area c/D/I, no erythema noted, mild swelling, no drainage. extension to 0, PT 2+ b/l, neg homans, sensation to light touch intact, + dorsi/plantarfelxion b/l LE"s. ] Vital Signs Temp 97.5 F 06/18/16 07:23 Pulse 75 06/18/16 07:23 Resp 24 06/18/16 07:36 BP 145/58 06/18/16 07:23 Pulse Ox 96 06/18/16 07:23 Intake & Output 06/17/16 06/18/16 06/18/16 18:59 06:59 18:59 Intake Total 1622 1100 Output Total 700 1900 200 Balance 922 -800 -200 Intake: IV Fluids 782 LR 782 Oral 840 1100 Output: Urine 700 1900 200 Other: Estimated Void Medium Date of Last Bowel 06/17/16 Movement Estimated Stool Amount Large Small # Voids 1 Laboratory Results - last 24 hr 06/17/16 06/17/16 06/17/16 12:15 17:18 22:09 WBC RBC Hgb Hct MCV MCH MCHC RDW Plt Count MPV Neut % (Auto) Lymph % (Auto) [place] % (Auto) Eos % (Auto) Baso % (Auto) Absolute Neuts (auto) Absolute Lymphs (auto) Absolute Monos (auto) Absolute Eos (auto) Absolute Basos (auto) Absolute Nucleated RBC Nucleated RBC % INR (Anticoag Therapy) Sodium Potassium Chloride Carbon Dioxide Anion Gap BUN Creatinine Est GFR ( Amer) Est GFR (Non-Af Amer) BUN/Creatinine Ratio Glucose POC Glucose (mg/dL) 232 H 184 H 230 H Calcium 06/18/16 06/18/16 06/18/16 06:41 06:41 06:41 WBC 12.6 H RBC 3.14 L Hgb 9.3 L Hct 28 L MCV 89 MCH 30 MCHC 34 RDW 14 Plt Count 166 MPV 8 Neut % (Auto) 70.9 Lymph % (Auto) 18.8 L [place] % (Auto) 9.2 H Eos % (Auto) 0.8 Baso % (Auto) 0.3 Absolute Neuts (auto) 8.9 H Absolute Lymphs (auto) 2.4 Absolute Monos (auto) 1.2 H Absolute Eos (auto) 0.1 Absolute Basos (auto) 0 Absolute Nucleated RBC 0 Nucleated RBC % 0 INR (Anticoag Therapy) 1.74 H Sodium 127 L Potassium 4.0 Chloride 95 L Carbon Dioxide 27 Anion Gap 5 BUN 13 Creatinine 0.56 Est GFR ( Amer) 132.6 Est GFR (Non-Af Amer) 103.1 BUN/Creatinine Ratio 23.2 H Glucose 176 H POC Glucose (mg/dL) Calcium 8.5 L 06/18/16 07:49 WBC RBC Hgb Hct MCV MCH MCHC RDW Plt Count MPV Neut % (Auto) Lymph % (Auto) [place] % (Auto) Eos % (Auto) Baso % (Auto) Absolute Neuts (auto) Absolute Lymphs (auto) Absolute Monos (auto) Absolute Eos (auto) Absolute Basos (auto) Absolute Nucleated RBC Nucleated RBC % INR (Anticoag Therapy) Sodium Potassium Chloride Carbon Dioxide Anion Gap BUN Creatinine Est GFR ( Amer) Est GFR (Non-Af Amer) BUN/Creatinine Ratio Glucose POC Glucose (mg/dL) 185 H Calcium Active Medications Generic Name Dose Route Start Last Admin Trade Name Freq PRN Reason Stop Dose Admin Acetaminophen 975 mg 06/17/16 22:00 06/18/16 06:24 Tylenol Tab* PO 975 mg Q8H JOANNA Administration Atenolol 100 mg 06/16/16 21:00 06/18/16 08:47 Tenormin Tab* PO 100 mg BID JOANNA Administration Bisacodyl 10 mg 06/15/16 15:26 Dulcolax Supp* FL DAILY PRN constipation Dextrose 12.5 gm 06/15/16 20:44 D50w Syringe 50 Ml* IV PUSH .FOR FS < 60 - SS PRN FS < 60 Diphenhydramine HCl 12.5 mg 06/15/16 15:26 Benadryl Iv* IV Q6H PRN PRURITIS Docusate Sodium 100 mg 06/15/16 21:00 06/18/16 08:47 Colace Cap* PO 100 mg BID JOANNA Administration Enoxaparin Sodium 30 mg 06/16/16 13:00 06/17/16 12:49 Lovenox(*) SUBCUT 30 mg Q24H JOANNA Administration Insulin Human Lispro 0 - 10 units 06/16/16 07:30 06/18/16 08:48 Humalog* SUBCUT 2 units AC JOANNA Administration Protocol Lactulose 30 ml 06/15/16 15:26 Lactulose* PO Q6H PRN constipation Magnesium Hydroxide 30 ml 06/15/16 15:26 06/17/16 14:30 Milk Of Magnesia Liq* PO 30 ml Q6H PRN Administration constipation Morphine Sulfate 2 mg 06/15/16 15:26 Morphine Inj (Syringe)* IV Q2H PRN PAIN Ondansetron HCl 4 mg 06/15/16 15:26 Zofran Inj* IV Q6H PRN nausea Ondansetron HCl 4 mg 06/15/16 15:26 Zofran Tab* PO Q6H PRN NAUSEA Oxycodone HCl 5 mg 06/17/16 19:21 Roxycodone Tab* PO Q4H PRN SEVERE PAIN Polyethylene Glycol/Electrolytes 17 gm 06/15/16 15:26 Miralax* PO DAILY PRN Constipation Assessment: [86 year old female s/p Left BROWN. ] Plan: []- D/C today to [facility] - Coumadin for DVT prophylaxis, continue lovenox today - Follow up with DR Obando within 10-14 days - Hyponatermia - recheck within 2 days - continue PT/ OT
--- NOTE | 2016-06-18 10:55 | DS ---
Discharge Summary Date of Admission: 06/15/2106 Date of Discharge: 06/18/2016 Provider: Dr. 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 She tolerated the procedure well and there were no complications. The patient had spinal with general anesthesia and was quite comfortable in the immediate postoperative period. On POD#1 the patients H&H was 11.4/34. Dressing was CDI, she was neurovascularly intact with good sensation distal to the hip. She could demonstrate dorsi and plantar flexion with good strength. Participation in physical and occupational therapy was begun. Pain management was controlled with oral Percocet. On POD#2 the urinary catheter was discontinued and the patient was able to void spontaneously. The dressing was changed and the wound was found to be benign with minimal drainage and erythema. Vital signs were stable and the patient was afebrile. POD#3 bowel and bladder had normalized and the patient was cleared by physical therapy for safe discharge to home with services. She will continue with the exercises learned with physical therapy and arrangements were made for visiting home physical therapy as well. At discharge the H&H was 9.2/28, vital signs were stable and the INR value was 1.74. The patient was discharged with a prescription for Coumadin 2 mg. The INR will be monitored on Mondays and and the Coumadin dose adjusted accordingly. The patient will resume the home medications as indicated in the discharge instructions. Sutures will be removed in 10-[address] Padilla office. New medications at discharge: Percocet 5/325 mg 1-2 tabs po Q4-6 hours prn pain Coumadin 2 mg 1-3 tablets by mouth at 5 pm daily as directed /17- 4mg 2/18- 4mg /- 4mg INR check 06/21 Colace 100 mg 1 po BID Continue home medications: Atenolol 100mg BID Tylenol 325mg PO q6 hours with care not to exceed 4000mg tylenol/ day Glipizide 10 mg PO daily HCTZ 25 mg PO daily Prinivil 20mg PO daily MVI one tablet daily Metformin 1000mg PO BID Condition: Stable Disposition: Discharge to [facility] for further rehabilitation Follow up: - Patient will follow up with Dr. Hector Obadno in 10-14 days at [facility] - The patient will require repeat BMP test for hyponatermia within 1-2 days 06/15/16 06/15/16 06/16/16 12:26 21:43 05:51 WBC 13.0 H RBC 3.83 L Hgb 11.4 L Hct 34 L MCV 89 MCH 30 MCHC 33 RDW 14 Plt Count 177 MPV 8 Neut % (Auto) 77.3 Lymph % (Auto) 14.3 L Cooper % (Auto) 8.0 Eos % (Auto) 0.1 Baso % (Auto) 0.3 Absolute Neuts (auto) 10.1 H Absolute Lymphs (auto) 1.9 Absolute Monos (auto) 1.0 H Absolute Eos (auto) 0 Absolute Basos (auto) 0 Absolute Nucleated RBC 0 Nucleated RBC % 0 INR (Anticoag Therapy) Sodium Potassium Chloride Carbon Dioxide Anion Gap BUN Creatinine Est GFR ( Amer) Est GFR (Non-Af Amer) BUN/Creatinine Ratio Glucose POC Glucose (mg/dL) 135 H 140 H Calcium 06/16/16 06/16/16 06/16/16 05:51 05:51 07:33 WBC RBC Hgb Hct MCV MCH MCHC RDW Plt Count MPV Neut % (Auto) Lymph % (Auto) Cooper % (Auto) Eos % (Auto) Baso % (Auto) Absolute Neuts (auto) Absolute Lymphs (auto) Absolute Monos (auto) Absolute Eos (auto) Absolute Basos (auto) Absolute Nucleated RBC Nucleated RBC % INR (Anticoag Therapy) 1.14 H Sodium 131 L Potassium 4.1 Chloride 97 L Carbon Dioxide 30 Anion Gap 4 BUN 16 Creatinine 0.72 Est GFR ( Amer) 99.2 Est GFR (Non-Af Amer) 77.2 BUN/Creatinine Ratio 22.2 H Glucose 169 H POC Glucose (mg/dL) 157 H Calcium 8.4 L 06/16/16 06/16/16 06/16/16 12:12 17:38 21:01 WBC RBC Hgb Hct MCV MCH MCHC RDW Plt Count MPV Neut % (Auto) Lymph % (Auto) Cooper % (Auto) Eos % (Auto) Baso % (Auto) Absolute Neuts (auto) Absolute Lymphs (auto) Absolute Monos (auto) Absolute Eos (auto) Absolute Basos (auto) Absolute Nucleated RBC Nucleated RBC % INR (Anticoag Therapy) Sodium Potassium Chloride Carbon Dioxide Anion Gap BUN Creatinine Est GFR ( Amer) Est GFR (Non-Af Amer) BUN/Creatinine Ratio Glucose POC Glucose (mg/dL) 188 H 163 H 194 H Calcium 06/17/16 06/17/16 06/17/16 04:15 04:15 04:15 WBC 13.9 H RBC 3.23 L Hgb 9.5 L Hct 29 L MCV 90 MCH 29 MCHC 33 RDW 13 Plt Count 152 MPV 8 Neut % (Auto) 69.5 Lymph % (Auto) 21.0 L Cooper % (Auto) 7.8 Eos % (Auto) 0.9 Baso % (Auto) 0.8 Absolute Neuts (auto) 9.6 H Absolute Lymphs (auto) 2.9 Absolute Monos (auto) 1.1 H Absolute Eos (auto) 0.1 Absolute Basos (auto) 0.1 Absolute Nucleated RBC 0 Nucleated RBC % 0 INR (Anticoag Therapy) 1.45 H Sodium 126 L Potassium 3.6 Chloride 94 L Carbon Dioxide 27 Anion Gap 5 BUN 16 Creatinine 0.71 Est GFR ( Amer) 100.9 Est GFR (Non-Af Amer) 78.4 BUN/Creatinine Ratio 22.5 H Glucose 164 H POC Glucose (mg/dL) Calcium 8.5 L 06/17/16 06/17/16 06/17/16 07:34 12:15 17:18 WBC RBC Hgb Hct MCV MCH MCHC RDW Plt Count MPV Neut % (Auto) Lymph % (Auto) Cooper % (Auto) Eos % (Auto) Baso % (Auto) Absolute Neuts (auto) Absolute Lymphs (auto) Absolute Monos (auto) Absolute Eos (auto) Absolute Basos (auto) Absolute Nucleated RBC Nucleated RBC % INR (Anticoag Therapy) Sodium Potassium Chloride Carbon Dioxide Anion Gap BUN Creatinine Est GFR ( Amer) Est GFR (Non-Af Amer) BUN/Creatinine Ratio Glucose POC Glucose (mg/dL) 170 H 232 H 184 H Calcium 06/17/16 06/18/16 06/18/16 22:09 06:41 06:41 WBC 12.6 H RBC 3.14 L Hgb 9.3 L Hct 28 L MCV 89 MCH 30 MCHC 34 RDW 14 Plt Count 166 MPV 8 Neut % (Auto) 70.9 Lymph % (Auto) 18.8 L Cooper % (Auto) 9.2 H Eos % (Auto) 0.8 Baso % (Auto) 0.3 Absolute Neuts (auto) 8.9 H Absolute Lymphs (auto) 2.4 Absolute Monos (auto) 1.2 H Absolute Eos (auto) 0.1 Absolute Basos (auto) 0 Absolute Nucleated RBC 0 Nucleated RBC % 0 INR (Anticoag Therapy) 1.74 H Sodium Potassium Chloride Carbon Dioxide Anion Gap BUN Creatinine Est GFR ( Amer) Est GFR (Non-Af Amer) BUN/Creatinine Ratio Glucose POC Glucose (mg/dL) 230 H Calcium 06/18/16 06/18/16 06:41 07:49 WBC RBC Hgb Hct MCV MCH MCHC RDW Plt Count MPV Neut % (Auto) Lymph % (Auto) Cooper % (Auto) Eos % (Auto) Baso % (Auto) Absolute Neuts (auto) Absolute Lymphs (auto) Absolute Monos (auto) Absolute Eos (auto) Absolute Basos (auto) Absolute Nucleated RBC Nucleated RBC % INR (Anticoag Therapy) Sodium 127 L Potassium 4.0 Chloride 95 L Carbon Dioxide 27 Anion Gap 5 BUN 13 Creatinine 0.56 Est GFR ( Amer) 132.6 Est GFR (Non-Af Amer) 103.1 BUN/Creatinine Ratio 23.2 H Glucose 176 H POC Glucose (mg/dL) 185 H Calcium 8.5 L Active Medications Generic Name Dose Route Start Last Admin Trade Name Freq PRN Reason Stop Dose Admin Acetaminophen 975 mg 06/17/16 22:00 06/18/16 06:24 Tylenol Tab* PO 975 mg Q8H JOANNA Administration Atenolol 100 mg 06/16/16 21:00 06/18/16 08:47 Tenormin Tab* PO 100 mg BID JOANNA Administration Bisacodyl 10 mg 06/15/16 15:26 Dulcolax Supp* CT DAILY PRN constipation Dextrose 12.5 gm 06/15/16 20:44 D50w Syringe 50 Ml* IV PUSH .FOR FS < 60 - SS PRN FS < 60 Diphenhydramine HCl 12.5 mg 06/15/16 15:26 Benadryl Iv* IV Q6H PRN PRURITIS Docusate Sodium 100 mg 06/15/16 21:00 06/18/16 08:47 Colace Cap* PO 100 mg BID JOANNA Administration Enoxaparin Sodium 30 mg 06/16/16 13:00 06/17/16 12:49 Lovenox(*) SUBCUT 30 mg Q24H JOANNA Administration Insulin Human Lispro 0 - 10 units 06/16/16 07:30 06/18/16 08:48 Humalog* SUBCUT 2 units AC JOANNA Administration Protocol Lactulose 30 ml 06/15/16 15:26 Lactulose* PO Q6H PRN constipation Magnesium Hydroxide 30 ml 06/15/16 15:26 06/17/16 14:30 Milk Of Magnesia Liq* PO 30 ml Q6H PRN Administration constipation Morphine Sulfate 2 mg 06/15/16 15:26 Morphine Inj (Syringe)* IV Q2H PRN PAIN Ondansetron HCl 4 mg 06/15/16 15:26 Zofran Inj* IV Q6H PRN nausea Ondansetron HCl 4 mg 06/15/16 15:26 Zofran Tab* PO Q6H PRN NAUSEA Oxycodone HCl 5 mg 06/17/16 19:21 Roxycodone Tab* PO Q4H PRN SEVERE PAIN Polyethylene Glycol/Electrolytes 17 gm 06/15/16 15:26 Miralax* PO DAILY PRN Constipation Vital Signs Temp 97.5 F 06/18/16 07:23 Pulse 75 06/18/16 07:23 Resp 24 06/18/16 07:36 BP 145/58 06/18/16 07:23 Pulse Ox 96 06/18/16 07:23 Intake & Output 06/17/16 06/18/16 06/18/16 18:59 06:59 18:59 Intake Total 1622 1100 Output Total 700 1900 200 Balance 922 -800 -200 Intake: IV Fluids 782 LR 782 Oral 840 1100 Output: Urine 700 1900 200 Other: Estimated Void Medium Date of Last Bowel 06/17/16 Movement Estimated Stool Amount Large Small # Voids 1
== END 2016-06-18 11:45 | DRG 470 ==
LOC: AA 06-15 11:58 → SSU 06-15 19:15
PROVIDERS: ADMIT Orthopaedic Surgery Adult Reconstructive Orthopaedic Surgery; ATTEND Orthopaedic Surgery Adult Reconstructive Orthopaedic Surgery
PROC: 0SRB04A Replacement of Left Hip Joint with Ceramic on Polyethylene Synthetic Substitute, Uncemented, Open Approach (ICD-10-PCS; principal; 2016-06-15 13:30)
DX: M16.12 Unilateral primary osteoarthritis, left hip (principal); E11.9 Type 2 diabetes mellitus without complications; I34.2 Nonrheumatic mitral (valve) stenosis; E87.1 Hypo-osmolality and hyponatremia; I10 Essential (primary) hypertension; D72.829 Elevated white blood cell count, unspecified; M85.862 Other specified disorders of bone density and structure, left lower leg; M24.7 Protrusio acetabuli; M25.752 Osteophyte, left hip; I35.0 Nonrheumatic aortic (valve) stenosis; Z83.3 Family history of diabetes mellitus; Z80.52 Family history of malignant neoplasm of bladder; Z79.82 Long term (current) use of aspirin; Z79.899 Other long term (current) drug therapy; Z79.84 Long term (current) use of oral hypoglycemic drugs; Z88.8 Allergy status to other drugs, medicaments and biological substances
CPT/HCPCS: 36415; 72170; 80048; 85025; 85610; 88304; 88311; A9270-GY; C1713; C1776; J0690; J1650; J1885; J2250; J2270; J2704; J3010

== ENCOUNTER 2017-12-18 10:03 | Emergency (ER) | payer MEDICARE ==
[2017-12-18 10:15] VITALS: BP 175/87
--- NOTE | 2017-12-18 12:00 | UC ---
Complaint Female HPI - HPI Summary HPI Summary: c/o eye irritation for one day, denies pain, itching or discharge, was not aware of its presence until she looked in the mirror. Denies fever, chills, flank pain. Denies blurred vision or trauma besides occasional scratching. She also submitted a sample of urine since she has long standing urinary frequency. She denies burning, or anything above baseline. - History Of Current Complaint Chief Complaint: UCGU Stated Complaint: EYE ISSUE/ URINARY ISSUE Time Seen by Provider: 12/18/17 11:51 Hx Obtained From: Patient Hx Last Menstrual Period: "Years ago." Pain Intensity: 0 - Allergies/Home Medications Allergies/Adverse Reactions: Allergies Allergy/AdvReac Type Severity Reaction Status Date / Time benzoin Allergy Swelling Verified 12/18/17 10:15 PMH/Surg Hx/FS Hx/Imm Hx Endocrine History: Diabetes Cardiovascular History: Hypertension Other History Of: Negative For: HIV, Hepatitis B, Hepatitis C, Anticoagulant Therapy - Surgical History Surgical History: Yes Surgery Procedure, Year, and Place: hernia repair x2. hysterectomy. left total hip replacement 06/2016 - Family History Known Family History: Positive: Diabetes, Other - cancer Negative: Cardiac Disease, Hypertension - Social History Alcohol Use: None Substance Use Type: None Smoking Status (MU): Never Smoked Tobacco - Immunization History Most Recent Influenza Vaccination: 2016 Most Recent Tetanus Shot: 2005 Most Recent Pneumonia Vaccination: 2014 Review of Systems Constitutional: Negative Eyes: Eye Redness ENT: Negative Respiratory: Negative Cardiovascular: Negative Gastrointestinal: Negative Genitourinary: Frequency, Urgency Motor: Negative Neurovascular: Negative Musculoskeletal: Negative Neurological: Negative Psychological: Negative All Other Systems Reviewed And Are Negative: Yes Physical Exam Triage Information Reviewed: Yes Appearance: Well-Appearing, No Pain Distress, Well-Nourished Vital Signs: Initial Vital Signs Temp 98.7 F 12/18/17 10:12 Pulse 63 12/18/17 10:12 Resp 18 12/18/17 10:12 BP 175/87 12/18/17 10:12 Pulse Ox 98 12/18/17 10:12 Vital Signs Reviewed: Yes Eyes: Positive: Other: - hematoma on lateral conjunctiva . DIONY, EOM wnl, no discharge, eyelid without erythema or edema ENT: Positive: Hearing grossly normal, Pharynx normal, TMs normal Neck exam: Normal Neck: Positive: Supple, Nontender, No Lymphadenopathy Respiratory: Positive: Chest non-tender, Lungs clear, Normal breath sounds, No respiratory distress Cardiovascular: Positive: RRR, No Murmur, Pulses Normal, Brisk Capillary Refill Abdomen Description: Positive: Nontender, No Organomegaly, Soft Complaint Female Dx - Course Course Of Treatment: discussed diagnosis with patient, to use artificial tears to avoid dry eye and not to scratch with resolution of the hemorrhage within 7- 10 days. F/u PCP and ophthalmology for routine care. Urine culture was submitted, awaiting results in 48 hr - Differential Dx/Diagnosis Provider Diagnoses: subconjunctival hemorrhage Discharge - Sign-Out/Discharge Documenting (check all that apply): Patient Departure - Discharge Plan Condition: Good Disposition: HOME Patient Education Materials: Subconjunctival Hemorrhage (ED) Referrals: Jazmín Bravo MD [Primary Care Provider] - - Billing Disposition and Condition Condition: GOOD Disposition: Home
== END 2017-12-18 12:42 | disposition home or self-care (01) ==
LOC: UCEAST 10:03
DX: H11.30 Conjunctival hemorrhage, unspecified eye (principal); Z88.8 Allergy status to other drugs, medicaments and biological substances; E11.9 Type 2 diabetes mellitus without complications; I10 Essential (primary) hypertension
CPT/HCPCS: 81003; 87086; 99212; G0463

== ENCOUNTER 2018-12-15 11:26 | Emergency (ER) | payer MEDICARE ==
[2018-12-15 11:44] VITALS: BP 159/76
--- NOTE | 2018-12-15 12:42 | UC ---
Skin Complaint HPI - HPI Summary HPI Summary: 88-year-old female presents with a rash under her breasts and to groin area worsening over the past month. Patient denies pain but reports intermittent itching, rashes worse with the heat. Patient has been trying Desitin cream but has not improved. No fevers or chills. Patient has a history of mild dementia but lives alone and takes care of herself. Daughter at bedside. - History of Current Complaint Chief Complaint: UCRash Time Seen by Provider: 12/15/18 12:09 Stated Complaint: RASH Hx Last Menstrual Period: "Years ago." Pain Intensity: 0 - Allergy/Home Medications Allergies/Adverse Reactions: Allergies Allergy/AdvReac Type Severity Reaction Status Date / Time benzoin Allergy Swelling Verified 12/15/18 11:45 Home Medications: Home Medications Cyanocobalamin (Vitamin B-12) [Vitamin B-12] 1 tab PO DAILY 12/15/18 [History Confirmed 12/15/18] PMH/Surg Hx/FS Hx/Imm Hx Previously Healthy: Yes Neurological History: Dementia Other History Of: Negative For: HIV, Hepatitis B, Hepatitis C, Anticoagulant Therapy - Surgical History Surgical History: Yes Surgery Procedure, Year, and Place: hernia repair x2. hysterectomy. left total hip replacement 06/2016 - Family History Known Family History: Positive: Diabetes, Other - cancer Negative: Cardiac Disease, Hypertension - Social History Lives: Alone Alcohol Use: None Substance Use Type: None Smoking Status (MU): Never Smoked Tobacco - Immunization History Most Recent Influenza Vaccination: 2016 Most Recent Tetanus Shot: 2005 Most Recent Pneumonia Vaccination: 2014 Review of Systems All Other Systems Reviewed And Are Negative: Yes Skin: Positive: Rash Physical Exam - Summary Physical Exam Summary: General: Well appearing, no distress Cardiovascular: Skin is well perfused Pulmonary: No respiratory distress, no tachypnea Abdomen: Non-distended Skin: Small brown macule w scaling to left jehovah's witness w actinic keratosis , small intersperse macules to axilla, and groin consistent with seborrheic keratosis, erythematous patches below breasts and in groin, and gluteal folds c/w casi MSK: no edema Psych: Normal affect Neuro: A&Ox3 Vital Signs: Initial Vital Signs Temp 36.3 C 12/15/18 11:39 Pulse 69 12/15/18 11:39 Resp 18 12/15/18 11:39 BP 159/76 12/15/18 11:39 Pulse Ox 98 12/15/18 11:39 Course/Dx - Course Course Of Treatment: 88-year-old female presents with dermatitis under the breasts, and in groin and gluteal folds We'll treat with ketoconazole cream daily for 2 weeks Patient also has areas of actinic keratosis (chronic). Small lesion to left jehovah's witness, advised that she should follow-up with dermatology to rule out malignancy - Diagnoses Provider Diagnosis: Intertriginous candidiasis, Actinic keratosis of left side of forehead Discharge - Sign-Out/Discharge Documenting (check all that apply): Patient Departure All imaging exams completed and their final reports reviewed: No Studies - Discharge Plan Condition: Stable Disposition: HOME Prescriptions: Ketoconazole 2 % CREAM (NF) [Nizoral 2% CREAM (NF)] 1 applic TOPICAL DAILY 14 Days tube Ketoconazole 2 % CREAM (NF) [Nizoral 2% CREAM (NF)] 1 applic TOPICAL DAILY 14 Days #1 tube Patient Education Materials: Skin Yeast Infection (ED) Referrals: Jazmín Bravo MD [Primary Care Provider] - Additional Instructions: You were seen for a fungal infection of the skin. Please use the antifungal cream once a day for 2 weeks. Please follow up with dermatology regarding the lesion on your face. - Billing Disposition and Condition Condition: STABLE Disposition: Home
== END 2018-12-15 12:50 | disposition home or self-care (01) ==
LOC: UCEAST 11:26
DX: B37.2 Candidiasis of skin and nail (principal); L57.0 Actinic keratosis; F03.90 Unspecified dementia, unspecified severity, without behavioral disturbance, psychotic disturbance, mood disturbance, and anxiety
CPT/HCPCS: 99212; G0463

== ENCOUNTER 2019-04-10 11:36 | Inpatient (IN) | payer MEDICARE ==
--- OUTSIDE RECORDS SUMMARY | 2019-04-10 11:50 | XMS REPORT | Summary of Care ---
:1930 Author Organization [facility] Address [address] [place] [address] Care Team Providers Name Role Phone Jazmín Bravo MD Primary Care Provider Reason for Visit Reason Comments Lab Work Only last done 01/05/19, Pt is fasting Diabetes A1c 7.5 on 01/05/19 Hypertension f/u BP 102/60 Weight Loss significant wt loss in three months, poor appetite Encounter Details Date Type Department Care Team Description 04/05/2019 Office Visit Nicolas Bravo, Type 2 diabetes mellitus with microalbuminuria, without long-term current use of insulin (HCC) (Primary Dx); Practice Jazmín Foss MD Essential (primary) hypertension; [address] [facility] [facility] Memory deficit; [place] [address] [place] [address] Unsteady gait; [phone] B12 deficiency; Dementia without behavioral disturbance, unspecified dementia type (HCC) Allergies Active Allergy Reactions Severity Noted Date Comments Benzoin Swelling 08/12/2016 documented as of this encounter (statuses as of 04/05/2019) Medications Medication Sig Dispensed Refills Start End Status Date Date Calcium-Vitamin D Take by mouth 0 Active (ADINA-CYUM PO) DAILY. acetaminophen (MAPAP) Take 650 mg by 0 Active 325 MG Oral mouth EVERY TabIndications: Pain FOUR HOURS NEEDED for Pain. Indications: Pain Pansey-3 Fatty Acids Take 300 mg by 0 Active (FISH OIL PO) mouth DAILY. Blood Glucose 1 Act by Does 200 Each 6 11/05/19 Active Monitoring Suppl not apply 18 (FREESTYLE LITE) Does route TWICE not apply DAILY. Or DeviceIndications: appropriate Diabetes mellitus testing strips without complication for device, (HCC) E11.65 lisinopril (PRINIVIL, take 1 tablet 90 Tab 3 09/29/19 Active ZESTRIL) 20 MG Oral by mouth once 19 TabIndications: daily Essential (primary) hypertension metFORMIN HCL 1000 MG TAKE 1 TABLET 60 Tab 5 02/06/20 Active Oral TabIndications: BY MOUTH TWICE 19 Diabetes mellitus A DAY without complication (HCC) glimepiride (AMARYL) 2 TAKE 1 TABLET 30 Tab 5 03/12/20 Active MG Oral TabIndications: BY MOUTH EVERY 19 Type 2 diabetes MORNING mellitus with complication, without long-term current use of insulin (HCC) atenolol (TENORMIN) 100 TAKE 1 TABLET 180 Tab 1 03/15/20 Active MG Oral TabIndications: BY MOUTH TWICE 19 Essential (primary) A DAY hypertension Cyanocobalamin (B-12) Take 1,000 mcg 100 Tab 3 04/05/20 Active 2000 MCG Oral by mouth 19 TabIndications: B12 DAILY. deficiency Multiple Take 1,000 0 Active Vitamins-Minerals Units by mouth (VITAMIN D3 COMPLETE DAILY. PO) Blood Pressure 1 Device by 1 Device 0 04/05/20 Active Monitoring (BLOOD Does not apply 19 PRESSURE MONITOR 3) route DAILY. Does not apply DeviceIndications: Essential (primary) hypertension Cyanocobalamin (B-12) Take 2,000 mcg 100 Tab 2 08/18/19 Discontinued 2000 MCG Oral by mouth 19 019 (Reorder) TabIndications: B12 DAILY. deficiency hydrochlorothiazide take 1 tablet 90 Tab 3 10/13/19 Discontinued (HCTZ, ORETIC) 25 MG by mouth once 19 019 Oral TabIndications: daily Essential (primary) hypertension mupirocin (BACTROBAN) 2 Apply to rash 30 g 3 01/06/20 Discontinued % Apply externally under breasts 19 019 OintmentIndications: and groin Tinea corporis, Tinea twice a day x inguinalis 2 weeks documented as of this encounter (statuses as of 04/05/2019) Active Problems Problem Noted Date History of total right hip replacement 09/29/2016 Overview: 06/28/16 History of cystoscopy 09/29/2016 Overview: 05/15/09 urethral stenosis w dilation H/O: hysterectomy 09/29/2016 Overview: 1966 Inguinal hernia 09/29/2016 Overview: 1966 Diabetic eye exam 09/29/2016 Overview: [facility] 09/17/15 History of total left hip replacement 08/12/2016 Overview: 06/15/2016 (Dr Obando) Knee osteoarthritis 09/05/2012 Essential (primary) hypertension Diabetes mellitus documented as of this encounter (statuses as of 04/05/2019) Resolved Problems Problem Noted Date Resolved Date A-fib 09/29/2016 11/05/2016 Overview: Converted 1998 documented as of this encounter (statuses as of 04/05/2019) Immunizations Name Administration Dates Next Due Depo Medrol (40mg) 09/05/2012, 09/05/2012 Influenza (IM) Preservative Free 12/08/2016 Influenza Vaccine High Dose 01/07/2016 PNEUMOCOCCAL POLYSACCHARIDE VACCINE 02/13/2001 Pneumococcal Conjugate Vaccine 12/02/2014 TDAP Vaccine 04/01/2014 TETANUS & DIPHTHERIA TOXOID (OVER 7 YRS) 08/30/2005 ZOSTER (ZOSTAVAX) VACCINE 01/07/2015 documented as of this encounter Social History Tobacco Use Types Packs/Day Years Used Date Never Smoker Smokeless Tobacco: Never Used Alcohol Use Drinks/Week oz/Week Comments No Sex Assigned at Date Recorded Not on file Job Start Date Occupation Industry Not on file Not on file Not on file Travel History Travel Start Travel End No recent travel history available. documented as of this encounter Last Filed Vital Signs Vital Sign Reading Time Taken Comments Blood Pressure 102/60 04/05/2019 9:21 AM EST Pulse 66 04/05/2019 9:21 AM EST Temperature - - Respiratory Rate - - Oxygen Saturation - - Inhaled Oxygen Concentration - - Weight 62.6 kg (138 lb) 04/05/2019 9:21 AM EST Height 158.8 cm (5' 2.5") 04/05/2019 9:21 AM EST Body Mass Index 24.84 04/05/2019 9:21 AM EST documented in this encounter Patient Instructions Patient InstructionsJazmín Bravo MD - 04/05/2019 9:00 AM ESTYour blood pressure is getting too low. Please stop Hydrochlorothiazide. Check home blood pressure to be sure they stay under 140/90. If higher, please call. Please check laboratory tests today: I suspect we will need to cut back on your diabetes medications given your weight loss. I will let you know. Please keep your neurology appointment for memory concerns. Your Mini-Cog score is 2 showing some dementia. Stay hydrated and please eat three meals a day. Use your walker every time you get up and walk. Please get your influenza shot at your pharmacy. documented in this encounter Progress Notes Jazmín Bravo MD - 04/05/2019 9:00 AM EST Nursing Notes: Yumiko Watts RN 04/05/2019 9:27 AM Signed Chief Complaint Patient presents with Lab Work Only last done 01/05/19, Pt is fasting Diabetes A1c 7.5 on 01/05/19 Hypertension f/u BP 102/60 Weight Loss significant wt loss in three months, poor appetite Here with her daughter SUBJECTIVE: Haley Reddy is an 89-y.o. female who presents for evaluation and treatment of Type 2 diabetes mellitus. Family history: positive for diabetes in the patients mother. Previous treatment modalities employed include diet and oral agents. Current treatment includes diet and oral agents. Weight is down 20 lb. Has meals on wheels, but does not eat it much. Does not like the food. She is seeing neurology in June. However daughter wants memory test done today. She uses a walker due to unsteady gait. Current monitoring regimen: home blood tests - none lately Last visit she was here with [id number]. They are concerned memory is failing. They would like neurology evaluation. She often repeats herself, very forgetful. 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 Last HgbA1c: Lab Results Component Value Date GLYCO 7.5 (H) 01/05/2019 GLYCO 10.7 (H) 08/15/2018 GLYCO 8.5 (H) 03/10/2018 Last eye exam: 11/30/2016, Yearly, Dr Rice, [facility] Last microalbumin: 12/2018 Last microfilament foot exam: by her dredge pipeman this month LDL: 126 on 01/05/19 Lab Results Component Value Date CHOL 206 (H) 07/29/2017 TRIG 153 (H) 07/29/2017 HDL 55 07/29/2017 LDL 120 (H) 07/29/2017 LDLHDLRATIO 2.2 07/29/2017 CHOLHDLRATIO 3.7 07/29/2017 Immunizations: Immunization History Administered Date(s) Administered Influenza (IM) Preservative Free 12/08/2016 Influenza Vaccine High Dose 01/07/2016 PNEUMOCOCCAL POLYSACCHARIDE VACCINE 02/13/2001 Pneumococcal Conjugate Vaccine 12/02/2014 TDAP Vaccine 04/01/2014 TETANUS & DIPHTHERIA TOXOID (OVER 7 YRS) 08/30/2005 ZOSTER (ZOSTAVAX) VACCINE 01/07/2015 Pended Date(s) Pended Influenza Vaccine 65 Yrs + 01/25/2019 Lab Results Component Value Date NA 131 (L) 01/05/2019 K 4.5 01/05/2019 CL 94 (L) 01/05/2019 CO2 25 01/05/2019 GLUCOSE 193 (H) 01/05/2019 BUN 7 01/05/2019 CREATININE 0.5 (L) 01/05/2019 CALCIUM 10.1 01/05/2019 TP 7.2 01/05/2019 ALBUMIN 4.3 01/05/2019 AST 27 01/05/2019 ALT 31 01/05/2019 ALK 50 01/05/2019 TBILI 0.8 01/05/2019 EGFR >60 01/05/2019 Diabetic complications: none Cardiovascular risk factors: diabetes mellitus Current Outpatient Medications: acetaminophen (MAPAP) 325 MG Oral Tab, Take 650 mg by mouth EVERY FOUR HOURS NEEDED for Pain. Indications: Pain, Disp: , Rfl: atenolol (TENORMIN) 100 MG Oral Tab, TAKE 1 TABLET BY MOUTH TWICE A DAY , Disp: 180 Tab, Rfl:1 Blood Glucose Monitoring Suppl (FREESTYLE LITE) Does not apply Device, 1 Act by Does not apply route TWICE DAILY. Or appropriate testing strips for device, E11.65, Disp: 200 Each, Rfl: 6 Blood Pressure Monitoring (BLOOD PRESSURE MONITOR 3) Does not apply Device, 1 Device by Doesnot apply route DAILY., Disp: 1 Device, Rfl: 0 Calcium-Vitamin D (ADINA-CYUM PO), Take by mouth DAILY., Disp: , Rfl: Cyanocobalamin (B-12) 2000 MCG Oral Tab, Take 1,000 mcg by mouth DAILY. , Disp: 100 Tab, Rfl:3 glimepiride (AMARYL) 2 MG Oral Tab, TAKE 1 TABLET BY MOUTH EVERY MORNING , Disp: 30 Tab, Rfl:5 lisinopril (PRINIVIL, ZESTRIL) 20 MG Oral Tab, take 1 tablet by mouth once daily, Disp: 90 Tab, Rfl: 3 metFORMIN HCL 1000 MG Oral Tab, TAKE 1 TABLET BY MOUTH TWICE A DAY, Disp : 60 Tab, Rfl: 5 Multiple Vitamins-Minerals (VITAMIN D3 COMPLETE PO), Take 1,000 Units by mouth DAILY., Disp:, Rfl: Pansey-3 Fatty Acids (FISH OIL PO), Take 300 mg by mouth DAILY., Disp: , Rfl: Allergies Allergen Reactions Tincture Of Benzoin [Benzoin] Swelling Past Medical History: Diagnosis Date Diabetes mellitus (HCC) Essential (primary) hypertension Past Surgical History: Procedure Laterality Date NC REPAIR ING HERNIA,5+Y/O,REDUCIBL Bilateral x 4 times she thinks NC TOTAL ABDOM HYSTERECTOMY after her 5th child TOTAL HIP REPLACEMENT Left 06/15/2016 Family History Problem Relation Age of Onset Diabetes Mother Arthritis Mother Cancer Mother hip/bone, bladder No Known Problems Father No Known Problems Brother No Known Problems Daughter No Known Problems Son No Known Problems Paternal Grandmother No Known Problems Son Diabetes Son No Known Problems Son Social History Tobacco Use Smoking status: Never Smoker Smokeless tobacco: Never Used Substance Use Topics Alcohol use: No Review Of Systems Skin: negative for rash Eyes: negative for blurred vision or vision changes Ears/Nose/Throat: negative for headachde Respiratory: Denies shortness of breath or URI symptoms Cardiovascular: negative for chest pain Gastrointestinal: negative for abdominal pain Neurologic: negative for Syncope, seizure, focal weakness, numbness. She walks with a walker, caneat home. No falls since last visit OBJECTIVE: BP 102/60 | Pulse 66 | Ht 5' 2.5" (1.588 m) | Wt 138 lb (62.6 kg) | BMI 24.84 kg/m General appearance: alert and oriented x 3, normal behaviour and affect, no distress, oriented times 3 Skin: Skin color, texture, turgor normal. Eyes: conjunctivae/corneas clear. Ears: negative findings: external ears normal to inspection and palpation, TM mahoney, no drainage Oropharynx: negative findings: lips normal without lesions Throat without erythema. Neck: Neck supple, full range of motion, no cervical spinal tenderness. No cervical or supraclavicular adenopathy. Thyroid symmetric, normal size. Carotids 4/4 without bruits. Lungs:. Lungs clear with good aeration. Chest symmetrical. Normal breath sounds bilaterally. Heart: Regular rate and rhythm. No murmurs, clicks or gallops. Abdomen: Abdomen soft, non-tender. Extremities: Extremities without deformities, edema, or skin discoloration. Station and gait normal. Peripheral pulses: dorsalis pedis=4/4, Neuro: Gait unsteady, 5/5 all extremities, strength grossly normal and symmetric, no tremor Skin: Beefy red flat rash under both breasts, left>right groin, an bilateral axillae No scaling. Mini-cog score: 2 ASSESSMENT/PLAN: ICD-9-CM ICD-10-CM 1. Type 2 diabetes mellitus with microalbuminuria, without long-term current use of insulin ([facility]) 250.40 E11.29 GLYCOHEMOGLOBIN A1C 791.0 R80.9 BASIC METABOLIC PANEL BASIC METABOLIC PANEL GLYCOHEMOGLOBIN A1C 2. Essential (primary) hypertension 401.9 I10 BASIC METABOLIC PANEL Blood Pressure Monitoring (BLOOD PRESSURE MONITOR 3) Does not apply Device BASIC METABOLIC PANEL 3. Memory deficit 780.93 R41.3 4. Unsteady gait 781.2 R26.81 5. B12 deficiency 266.2 E53.8 Cyanocobalamin (B-12) 2000 MCG Oral Tab 6. Dementia without behavioral disturbance, unspecified dementia type ([facility]) 294.20 F03.90 Please do diabetes laboratory tests today. Mild dementia: Keep Neurology appointment in a few months. Weight loss: Does not eat her meals on wheels; daughter is considering moving her in with her Rx: DANGELO? Yes Statin? declined Metformin? Yes Reviewed concepts of diabetes self-management stressing the primary role of the patient in monitoring and maintaining control of Diabetes. Recommended diet, exercise, and weight loss. Follow up every 3 months is recommended, sooner as needed. Patient Instructions Your blood pressure is getting too low. Please stop Hydrochlorothiazide. Check home blood pressure to be sure they stay under 140/90. If higher, please call. Please check laboratory tests today: I suspect we will need to cut back on your diabetes medications given your weight loss. I will let you know. Please keep your neurology appointment for memory concerns. Your Mini-Cog score is 2 showing some dementia. Stay hydrated and please eat three meals a day. Use your walker every time you get up and walk. Please get your influenza shot at your pharmacy. Author: Jazmín Bravo MD 04/05/2019 16:26 documented in this encounter Plan of Treatment Name Type Priority Associated Diagnoses Date/Time GLYCOHEMOGLOBIN A1C Lab Routine Type 2 diabetes mellitus 04/05/2019 9:56 AM EST with microalbuminuria, without long-term current use of insulin (HCC) BASIC METABOLIC PANEL Lab Routine Type 2 diabetes mellitus 04/05/2019 9: 56 AM EST with microalbuminuria, without long-term current use of insulin (HCC) Essential (primary) hypertension Name Type Priority Associated Diagnoses Order Schedule GLYCOHEMOGLOBIN A1C Lab Routine Type 2 diabetes mellitus Expected: 2018 with microalbuminuria, (Approximate), without long-term current Expires: 04/05/2020 use of insulin (HCC) BASIC METABOLIC PANEL Lab Routine Type 2 diabetes mellitus Expected: 2018 with microalbuminuria, (Approximate), without long-term current Expires: 04/05/2020 use of insulin (HCC) Essential (primary) hypertension Health Maintenance Due Date Last Done Comments ZOSTER IMMUNIZATION SERIES 03/04/2015 01/07/2015 (2 of 3) Diabetic Eye Exam 11/30/2017 11/30/2016, 11/30/2016 INFLUENZA VACCINE (#1) 2018 12/08/2016, 01/07/2016 MEDICARE ANNUAL WELLNESS 03/08/2019 03/08/2018 VISIT HEMOGLOBIN A1C 04/06/2019 01/05/2019, 08/15/2018, 03/10/2018, Additional history exists FOOT EXAM 04/01/2020 04/01/2019, 03/08/2018, 03/08/2018, Additional history exists DEPRESSION SCREENING 04/05/2020 04/05/2019 FALL RISK ASSESSMENT 04/05/2020 04/05/2019, 04/05/2019 PNEUMOCOCCAL 65+YRS Completed 12/02/2014, 02/13/2001 HPV IMMUNIZATION SERIES Aged Out No longer eligible based on patient's age to complete this topic MENINGOCOCCAL VACCINE IMM Aged Out No longer eligible based on patient's age to complete this topic documented as of this encounter Goals Goal Patient Goal Associated Recent Patient-Stated? Author Type Problems Progress Blood Pressure Blood 102/60 No Lawrence, < 140/90 Pressure (04/05/2019 Jazmín Foss, 9:21 AM EST) Note: This is an individualized treatment (blood pressure) goal for Haley Reddy: Displayed above (on the left) is your goal for blood pressure control. Your most recent blood pressure is also shown above, on the right. You should try to achieve blood pressures that are lower than your goal listed above (on the left). Glycohemoglobin A1c < 7.0 Diabetes 7.5 (01/05/2019 9:25 No Jazmín Bravo AM EDT) MD Pipo Note: This is an individualized treatment (diabetes control, HgbA1C) goal for Haley Reddy: Displayed above is your progress towards your HgbA1C goal. Your goal is shown above (on the left); your most recent HgbA1C is shown on the right. Note that lower numbers are better. Keep immunizations current Lifestyle Jazmín Vee MD Note: This is an individualized lifestyle goal for Haley Reddy: Please be sure to keep up-to-date on recommended immunizations. For example, this would include a yearly influenza vaccine. Immunization status can be seen by looking at the Health Maintenance sections of your [facility], Plan of Care, and any After Visit Summaries. Take all prescribed medications as Self-management No Jzamín Bravo MD directed Note: This is an individualized self-management goal for Haley Reddy: Please take all prescribed medications as directed. 1. Do not skip doses. If you cannot afford your medications, talk with your doctor. 2. Use a pill reminder system such as a pill box if needed. Your pharmacist can help you with this. 3. Contact your Pharmacy 5 days before your medication runs out. If you cannot take your medications for any reasons, talk with your doctor. 4. Please bring all of your medication bottles and inhalers (or a list of all your medications/inhalers) with you to every visit. Potential barriers to meeting all of your care plan goals will continue to be addressed on an ongoing basis. documented as of this encounter Procedures Procedure Name Priority Date/Time Associated Diagnosis Comments DIABETES FOOT EXAM Routine 04/01/2019 documented in this encounter Results DIABETES FOOT EXAM (04/01/2019) HM FOOT EXAM done [facility] Performing Organization Address City/State/Zipcode Phone Number [facility] [address] [place] [address] documented in this encounter Visit Diagnoses Diagnosis Type 2 diabetes mellitus with microalbuminuria, without long-term current use of insulin (HCC) - Primary Essential (primary) hypertension Unspecified essential hypertension Memory deficit Memory loss Unsteady gait Abnormality of gait B12 deficiency Other B-complex deficiencies Dementia without behavioral disturbance, unspecified dementia type (HCC) documented in this encounter Insurance Payer Benefit Plan / Subscriber ID Effective Dates Phone Address Type Group [facility] xxxxxxxxx 2016-Prese Medicare TODAYS OPTIONS TODAYS OPTIONS nt Advantage documented as of this encounter
--- NOTE | 2019-04-10 12:02 | ED ---
Adult Trauma - HPI Summary HPI Summary: Patient is an 89 y/o F presenting to [facility] with complaints of right hip pain and RLQ pain. Patient had a fall that occurred either last night or this morning. She states that she was standing by her bed, lost her balance, and fell over. Pain is rated 8/10. Patient was unable to bear weight on right leg. No CP, SOB, head injury, LOC, fever, vomiting, diarrhea, and changes in appetite noted. Family members also note that the patient's arms have been "limp " and with decreased ROM. Patient reports pain at left shoulder as well. PMHx of diabetes and HTN is endorsed. She states that she is not on blood thinners. Patient denies tobacco, alcohol, and substance usage. 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 Home medications and allergies are reviewed. - History of Current Complaint Stated Complaint: FALL RIGHT HIP PAIN Time Seen by Provider: 04/10/19 11:40 Hx Obtained From: Patient Hx Last Menstrual Period: "Years ago." Mechanism of Injury: Fall Onset/Duration: Started Hours Ago, Still Present Onset of Pain: Prior to Arrival Current Severity: Severe Pain Scale Used: 0-10 Numeric Location: Abdomen/Pelvis, Extremities Aggravating Factor(s): Nothing Alleviating Factor(s): Nothing Associated Signs & Symptoms: Positive: Abdominal Pain, Other: - negative - head injury, diarrhea, changes in appetite. Negative: SOB, Chest Pain, Fever, Nausea /Vomiting, Loss of Consciousness - Additional Pertinent History Primary Care Physician: BJ - Allergy/Home Medications Allergies/Adverse Reactions: Allergies Allergy/AdvReac Type Severity Reaction Status Date / Time benzoin Allergy Swelling Verified 12/15/18 11:45 Home Medications: Home Medications Ascorbic Acid TAB* [Vitamin C TAB*] 500 mg PO DAILY 04/10/19 [History Confirmed 04/10/19] Calcium Carbonate [Calcium] 600 mg PO DAILY 04/10/19 [History Confirmed 04/10/19 ] Cholecalciferol CAP/TAB(NF) [Vitamin D3 CAP/TAB (NF)] 25 mcg PO DAILY 04/10/19 [ History Confirmed 04/10/19] Lecithin [Soya Lecithin] 1,200 mg PO DAILY 04/10/19 [History Confirmed 04/10/19] Multivitamins/Minerals TAB* [Theragran/minerals TAB*] 1 tab PO DAILY 04/10/19 [ History Confirmed 04/10/19] Alpha-3 Fatty Acids (Nf) [Fish Oil (NF)] 1,000 mg PO DAILY 04/10/19 [History Confirmed 04/10/19] PMH/Surg Hx/FS Hx/Imm Hx Endocrine/Hematology History: Reports: Hx Diabetes - type 2 Denies: Hx Anticoagulant Therapy, Hx Thyroid Disease Cardiovascular History: Reports: Hx Hypercholesterolemia, Hx Hypertension - controlled with meds, Other Cardiovascular Problems/Disorders - luther cholesterol Denies: Hx Angina, Hx Congestive Heart Failure, Hx Coronary Artery Disease, Hx Deep Vein Thrombosis, Hx Myocardial Infarction, Hx Pacemaker/ICD, Hx Valvular Heart Disease Respiratory History: Denies: Hx Asthma, Hx Chronic Obstructive Pulmonary Disease (COPD), Hx Lung Cancer, Hx Pneumonia, Hx Pulmonary Embolism GI History: Denies: Hx Gall Bladder Disease, Hx Gastrointestinal Bleed, Hx Ulcer, Hx Urosepsis History: Reports: Other Problems/Disorders - urinary infection - last week - just finished antibiotic Denies: Hx Kidney Stones, Hx Renal Disease Musculoskeletal History: Reports: Hx Arthritis Sensory History: Reports: Hx Contacts or Glasses - glasses Denies: Hx Hearing Aid Opthamlomology History: Reports: Hx Contacts or Glasses - glasses Neurological History: Denies: Hx Dementia, Hx Migraine, Hx Seizures, Hx Transient Ischemic Attacks (TIA) Psychiatric History: Denies: Hx Anxiety, Hx Depression, Hx Schizophrenia, Hx Bipolar Disorder - Cancer History Hx Chemotherapy: No Hx Radiation Therapy: No - Surgical History Surgery Procedure, Year, and Place: hernia repair x2. hysterectomy. left total hip replacement 06/2016 Hx Anesthesia Reactions: No Infectious Disease History: Denies: Traveled Outside the [place] in Last 30 Days - Family History Known Family History: Positive: Diabetes, Other - cancer Negative: Cardiac Disease, Hypertension - Social History Alcohol Use: None Substance Use Type: Reports: None Smoking Status (MU): Never Smoked Tobacco Review of Systems Negative: Fever Negative: Chest Pain Negative: Shortness Of Breath Gastrointestinal: Other - negative - changes in appetite Positive: Abdominal Pain. Negative: Vomiting, Diarrhea Musculoskeletal: Other - positive - fall, right hip pain, decreased ROM of BUE, arms are "limp", left shoulder pain Neurological: Other - negative - head injury, LOC All Other Systems Reviewed And Are Negative: Yes Physical Exam - Summary Physical Exam Summary: Constitutional: Well-developed, Well-nourished, Alert. (-) Distressed Skin: Warm, Dry HENT: Normocephalic; Atraumatic Eyes: Conjunctiva normal Neck: Musculoskeletal ROM normal neck. (-) JVD, (-) Stridor, (-) Tracheal deviation Cardio: Rhythm regular, rate normal, Heart sounds normal; Intact distal pulses; Radial pulses are 2+ and symmetric. (-) Murmur Pulmonary/Chest wall: Effort normal. (-) Respiratory distress, (-) Wheezes, (-) Rales Abd: Soft, Positive McBurney's point tenderness (-) Distension, (-) Guarding, (- ) Rebound Musculoskeletal: There is FROM of her right hip, but patient does have pain with ROM; there is no bony tenderness; anterior left shoulder tenderness is noted however; 4/5 strength in BUE (-) Edema Lymph: (-) Cervical adenopathy Neuro: Alert, Oriented x3 Psych: Mood and affect Normal Triage Information Reviewed: Yes Vital Signs Reviewed: Yes Procedures - Sedation Patient Received Moderate/Deep Sedation with Procedure: No Diagnostics - Laboratory Result Diagrams: 04/10/19 12:07 04/10/19 12:07 Lab Statement: Any lab studies that have been ordered have been reviewed, and results considered in the medical decision making process. - Radiology LEFT SHOULDER X-RAY Radiology Interpretation Completed By: Radiologist Summary of Radiographic Findings: LEFT SHOULDER X-RAY IMPRESSION: OSTEOPENIA. OSTEOARTHRITIS. NO ACUTE OSSEOUS INJURY. THE DEGREE OF OSTEOPENIA MAY MAKE A NONDISPLACED FRACTURE. RADIOGRAPHICALLY OCCULT. IF SYMPTOMS PERSIST, RECOMMEND REPEAT IMAGING. THIS REPORT WAS REVIEWED BY ED PHYSICIAN. - CT CERVICAL SPINE CT CT Interpretation Completed By: Radiologist Summary of CT Findings: CERVICAL SPINE CT IMPRESSION: 1. No fracture or traumatic malalignment of the cervical spine. 2. Varying degrees of multilevel spondylosis results in up to severe right neural. foraminal stenosis at C4-C5. There is no severe osseous encroachment of the spinal canal. 3. Right otomastoiditis fusion. THIS REPORT WAS REVIEWED BY ED PHYSICIAN. CT ABDOMEN/PELVIS CT Interpretation Completed By: Radiologist Summary of CT Findings: ABDOMEN/PELVIS CT IMPRESSION: 1. There is a large mixed attenuation well-circumscribed peritoneal mass. Coronal plane. imaging indicates the mass may be extending from loops of small bowel in the left upper. quadrant, but there is no evidence of bowel obstruction. Other malignancies such as. ovarian malignancy is on the differential diagnosis. With a history of trauma the. possibility of hematoma exists although this is considered less likely. I recommend. surgical evaluation and superior imaging with MRI. Oral contrast is advised prior to MRI. imaging. 2. Degenerative changes of the right hip but no definite acute fracture or dislocation. 3. Additional chronic, degenerative and iatrogenic findings described in the body the. report. THIS REPORT WAS REVIEWED BY ED PHYSICIAN. Re-Evaluation - Re-Evaluation First Eval Re-Evaluation Time: 14:52 Comment: Results of workup discussed with patient and family, they are agreeable with admission. Adult Trauma Course/Dx - Course Course Of Treatment: Patient is here after a supposed that fall last time. Patient is demented and cannot tell a lot of history upon arrival. Patient is complaining of right hip pain but only a tenderness in her right lower quadrant at McBurney's point. Was borderline febrile. Patient has new onset upper extremity weakness bilaterally as well. Patient is placed in a c-collar and had a cervical spine CT scan which showed no acute abnormality. Patient continued to have symptoms so neurosurgery was counseled and they recommended an MRI for possible central cord. In addition, patient CT scan of her abdomen/ pelvis which showed a large mass likely cancerous in nature. This could be a peritoneal hematoma patient has no external signs of trauma and only point tenderness or right lower quadrant. I do not believe this represents a peritoneal hematoma but an MRI was ordered to further evaluate that. Patient is admitted to medicine for further workup and management - Diagnoses Provider Diagnoses: Central cord syndrome, Abdominal mass, RLQ abdominal pain - Physician Notifications Discussed Care Of Patient With: Edna Abel Time Discussed With Above Provider: 14:54 Instructed by Provider To: Other - 1445 - Dr. Venegas conveys results of CT ABD/ PEL over phone. 1454 - Patient's case discussed with Dr. Abel, she requests neurosurgery consult before admission. 1457 - Patient's case discussed with Dr. Guzman, he is comfortable having patient admitted to [facility]. 1504 - Dr. Abel accepts for admission Discharge ED - Sign-Out/Discharge Documenting (check all that apply): Patient Departure - admit - Discharge Plan Condition: Stable Disposition: ADMITTED TO [facility] Referrals: Jazmín Bravo MD [Primary Care Provider] - - Billing Disposition and Condition Condition: STABLE Disposition: Admitted to [facility] - Attestation Statements Document Initiated by Sara: Yes Documenting Scribe: MEET ARROYO Provider For Whom Sara is Documenting (Include Credential): WISAM POZO MD Scribe Attestation: MEET Lynne, scribed for WISAM POZO MD on 04/10/19 at 1621. Scribe Documentation Reviewed: Yes Provider Attestation: The documentation as recorded by the MEET steward accurately reflects the service I personally performed and the decisions made by me, WISAM POZO MD Status of Scribe Document: Viewed
[2019-04-10 12:09] LABS: Urine Appearance Cloudy; Urine Bilirubin Negative (Negative); Urine Blood Negative (Negative); Urine Color Amber; Urine Glucose 1+(50 mg/dL) (Negative); Urine Ketones 2+ (Negative); Urine Nitrite Negative (Negative); Urine Protein 1+(30 mg/dL) (Negative); Urine Specific Gravity 1.027 (1.010-1.030); Urine Urobilinogen Negative (Negative)
[2019-04-10 12:12] LABS: Urine Bacteria Absent (Absent); Urine Red Blood Cell Absent (Absent); Urine Squamous Epithelial Cell Present (Absent); Urine Transitional Epithelial Present (Absent); Urine White Blood Cell 3+(>20/hpf) (Absent)
[2019-04-10 12:25] LABS: ABS Basophils 0.1 10^3/ul (0-0.2); ABS Lymphocytes 1.1 10^3/ul (1.0-4.8); ABS Monocytes 1.3 10^3/ul (0-0.8); ABS Neutrophils 10.7 10^3/ul (1.5-7.7); Hematocrit 41 % (35-47); Hemoglobin 13.5 g/dL (12.0-16.0); Lymphocyte % 8.5 %; Mean Corpuscular HGB Conc 33 g/dL (31-36); Mean Corpuscular Hemoglobin 29 pg (27-31); Mean Corpuscular Volume 89 fL (80-97); Mean Platelet Volume 7.7 fL (7.4-10.4); Platelet Count 255 10^3/uL (150-450); Red Blood Count 4.61 10^6 /uL (3.70-4.87); Red Cell Distribution Width 14 % (10-15); White Blood Count 13.1 10^3/uL (3.5-10.8)
[2019-04-10 12:58] LABS: Albumin 3.9 g/dL (3.2-5.2); Albumin/Globulin Ratio 1.4 (1-3); BUN/Creatinine Ratio 18.1 (8-20); EGFR African American 92.7 (>60); EGFR Non-African American 76.6 (>60); Globulin 2.8 g/dL (2-4); Potassium 4.5 mmol/L (3.5-5.0); Total Bilirubin 1.4 mg/dL (0.2-1.0); Total Protein 6.7 g/dL (6.4-8.9)
[2019-04-10] MEDS ORDERED: Iodixanol* (CONTRAST) 320 MG/ML 100 ML SDV IV ONE (13:02)
[2019-04-10 15:58] LABS: TSH (Thyroid Stimulating Horm) 7.85 mcIU/mL (0.34-5.60)
[2019-04-10] MEDS ORDERED: Acetaminophen TAB* 325 MG PO PRN (16:14)
[2019-04-10] MEDS ORDERED: NS 0.9% 1000 ML** 1,000 ML IV SCH ×2 (16:30→16:33)
[2019-04-10 16:46] LABS: Activated Partial Thrombo Time 30.8 seconds (26.0-38.0); INR 1.21 (0.82-1.09)
--- NOTE | 2019-04-10 16:53 | HP ---
History of Present Illness - History of Present Illness Reason for Visit: Fall and right hip pain-1 day History of Present Illness: This is 89 F with history of Hypertension, NIDDM and Dementia presented with Right hip pain that started after a mechanical fall. She has baseline dementia so most of the history is from her daughter Agnieszka who is also her HCP. According to patient she felt down this morning near the nightstand as she was going to sleep thinking that it was night and then she lost balance and fell down by the side of the bed. She reached out to the phone which was nearby and called her daughter. She denies dizziness, palpitation, chest pain, passing out , loss of conscious, nausea or vomiting before the incident. She denies hitting her head, incontinence and confusion after the episode. According to her daughter she was lying on the side of the bed in a reclining position. Then they tried to get her up and when she tried to stand she had pain on her right hip which was aggravated by movement and was 8/10. They also noticed some weakness on her right arm but no slurring of speech. She was also complaining of left shoulder pain after the fall. In ED Her vitals were stable. Blood work showed leucocytosis of 13.1, Hb 13.5, Na 127 , Anion gap 13, Glucose 238, total bilirubin 1.4 and TSH 7.85. Her urine analysis was abnormal with kettones, leucocyte esterase, WBC and hyaline cast. Abdomen/Pelvis CT showed large mixed attenuation well-circumscribed peritoneal mass with indication that the mass may be extending from loops of small bowel in the left upper quadrant, but no evidence of bowel obstruction. Other malignancies such as ovarian malignancy is on the differential diagnosis. With a history of trauma the possibility of hematoma exists although this is considered less likely and recommended MRI with contrast but no any fracture of hip. Cervical CT showed no fracture or traumatic malalignment of the cervical spine but Varying degrees of multilevel spondylosis results in up to severe right neural foraminal stenosis at C4-C5. There is no severe osseous encroachment of the spinal canal. 3. Right otomastoiditis fusion. Shoulder xray was negative for fracture. - Past Medical History Past Medical History: 1. Hypertension 2. NIDDM 3. Dementia 4. Mild Aortic Stenosis 5. Mild mitral insufficiency - Past Surgical History Past Surgical History: 1. Hysterectomy 2. Left Hip replacement 3.Carpal tunnel Surgery 4. Appendectomy - Past Family History Past Family History: Mother had cancer. Father had Dementia, Heart failure and at 96 years. She has 5 children and all of them are healthy. 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 She denies alcohol use, tobacco use or other recreational drug use. Her HCP is her daughter- Agnieszka kamara([phone]) and her son- Arnaldo Ibrahim(). She is DNR. Review of Systems - Review of Systems Constitutional: Positive: Weakness. Negative: Fever, Chills, Sweats, Malaise, Other Eyes: Negative: Pain, Vision Change, Conjunctivae Inflammation, Eyelid Inflammation, Redness, Other ENT: Negative: Ear Pain, Ear Discharge, Nose Pain, Nose Discharge, Nose Congestion, Mouth Pain, Mouth Swelling, Throat Pain, Throat Swelling, Other Respiratory: Negative: Cough, Dry, Shortness of Breath, Hemoptysis, SOB with Excertion, Pleuritic Pain, Sputum, Wheezing Cardiovascular: Negative: Chest Pain, Palpitations, Orthopnea, Paroxysmal Noc. Dyspnea, Edema, Light Headedness, Other Gastrointestinal: Negative: Nausea, Vomiting, Abdominal Pain, Diarrhea, Constipation, Melena, Hematochezia, Other Genitourinary: Positive: Frequency. Negative: Dysuria, Incontinence, Hematuria , Retention, Other Musculoskeletal: Positive: Shoulder Pain, Other - Hip Pain. Negative: Neck Pain , Arm Pain, Back Pain, Hand Pain, Leg Pain, Foot Pain Skin: Negative: Rash, Lesions, Bryce, Bruising, Other Neurological: Positive: Weakness, Numbness. Negative: Incoordination, Change in Speech, Confusion, Seizures, Other - Medications/Allergies Allergies/Adverse Reactions: Allergies Allergy/AdvReac Type Severity Reaction Status Date / Time benzoin Allergy Swelling Verified 12/15/18 11:45 Medications: Current Medications Acetaminophen (Tylenol Tab*) 650 mg PO Q4H PRN PRN Reason: PAIN - MILD Atenolol (Tenormin Tab*) 100 mg PO BID JOANNA Calcium Carbonate (Calcium Carbonate Tab*) 600 mg PO DAILY JOANNA Cholecalciferol (Vitamin D3 Cap/Tab (Nf)) cap PO DAILY JOANNA Enoxaparin Sodium (Lovenox(*)) 40 mg SUBCUT Q24H JOANNA Glimepiride (Glimepiride (Nf)) 2 mg PO DAILY JOANNA; Protocol Ceftriaxone Sodium 1 gm/ (Sodium Chloride) 50 mls @ 100 mls/hr IVPB Q24H JOANNA Sodium Chloride (Ns 0.9% 1000 Ml) 1,000 mls @ 125 mls/hr IV PER RATE JOANNA Stop: 04/11/19 00:29 Lisinopril (Prinivil Tab*) 20 mg PO QAM [facility] Oxycodone/Acetaminophen (Percocet 5/325 Tab*) 1 tab PO Q4H PRN PRN Reason: PAIN - MODERATE HOME MEDICATIONS Atenolol TAB* [Tenormin TAB* 25 MG] 100 mg PO BID 11/30/12 [History Confirmed ] Lisinopril TAB* [Prinivil TAB 5 MG*] 20 mg PO QAM 11/30/12 [History Confirmed ] metFORMIN* [Glucophage 500 MG TAB *] 1,000 mg PO BID 11/30/12 [History Confirmed 04/10/19] Calcium Carbonate [Calcium] 600 mg PO DAILY 04/10/19 [History Confirmed 04/10/19 ] Cholecalciferol CAP/TAB(NF) [Vitamin D3 CAP/TAB (NF)] 25 mcg PO DAILY 04/10/19 [ History Confirmed 04/10/19] Glimepiride (NF) 2 mg PO DAILY 04/10/19 [History Confirmed 04/10/19] Vitamin B12 1000mg Po daily Exam Vital Signs: Vital Signs (72 hours) 04/10/19 04/10/19 04/10/19 11:43 11:44 12:00 Temperature 97.2 F Pulse Rate 88 89 94 Respiratory 18 Rate Blood Pressure 168/85 168/85 (mmHg) O2 Sat by Pulse 94 95 95 Oximetry 04/10/19 04/10/19 04/10/19 12:14 12:45 13:00 Temperature Pulse Rate 85 84 Respiratory Rate Blood Pressure 150/85 148/62 (mmHg) O2 Sat by Pulse 96 95 Oximetry 04/10/19 13:15 Temperature Pulse Rate Respiratory Rate Blood Pressure 144/87 (mmHg) O2 Sat by Pulse Oximetry Exam: Patient is lying on a bed in supine position and is not in acute distress and is wearing cervical collar. HEENT: Normocephalic and atraumatic. Sclera anicteric. EOMI. PERRLA. Neck: No lymphadenopathy and enlarged thyroid. NO JVD elevation. Lungs: Good respiratory effort and chest expansion. Clear with no added sound. Heart: Normal in rate and rhythm. S1/S2 heard with systolic murmur but no rubs or gallops. Abdomen: Soft, distended and nontender. There is firm area on mid-lower abdomen which is not tender. Normal BS heard. Extremities; No swelling, cyanosis or clubbing. decreased ROM on her both shoulder joint and hip joint. Neuro: Alert, oriented to self and coperative. CN intact. 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 Could not lift her both arm; given her pain. Assessment/Plan - Assessment/Plan Assessment: This is a 89 F with history of HTN, NIDDM and dementia presented with right hip pain and weakness after fall this morning. Found to have leucocytosis, hyponatremia, abnormal urinalaysis and incidental large peritoneal mass in CT with suspicion of malignancy and no hip fracture. Plan: 1. Right Hip Pain- Status post fall. No evidence of fracture in CT. It could be from soft tissue trauma. We will give her tylenol and percocet for pain management. We will order physical therapy and watch for pain and if pain persist we will order further imaging. 2. 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 This could be from pain but we need to rule out any Cervical fracture and cord compression. CT cervical spinal negative for any fracture. We will wait for MRI results; till then we will put her on cervical collar. We discussed the case with Dr. Blas and he doesnot want to start steroid at this point. 3. Peritoneal mass: There is high suspicion of malignancy. Less likely hematoma as her Hb is normal. We will do MRI pelvis to get a better idea. 4.Hyponatremia: This could be hypovolemic hyponatremia-moderate. We will order Serum osmolarity and urine osm with sodium and give her some fluids. 5.UTI: Has abnormal urinalysis and she has increased frequency of micturition with leucocytosis. We will start her on ceftriaxone and pending urine culture. 6. Hypertension: we will continue her atenolol and lisinopril. 7. NIDDM: We will hold metformin given contrast use. Continue glimiperide. 8.DVT prophylaxis: On lovenox 9. DNR Attestation Attending/Supervising Physician Comment: Agree with resident plan and findings Essentially 89F PMH NIDDM, HTN, dementia who presented after mechanical fall with weakness, found to have incidental mass in abdomen. Will need scan of cervical spine and abdomen to better classify mass. Anticipate more information as diagnostics progress.
[2019-04-10] MEDS ORDERED: Enoxaparin(*) 40 MG/0.4 ML SYR SUBCUT SCH (18:00)
--- NOTE | 2019-04-10 19:41 | PN ---
Progress Note - Progress Note Date of Service: 04/10/19 Note: Patient was seen again in the ED after MRI of Cervical spine. Exam stable AAox1 JOSIAS, CN II-XII grossly intact Motor 4-5/5 UEs, with exception of inability to elevate UEs above shoulder level. (daughter is not sure if this is a chronic finding) 4/5 LEs with exception HF, KE 3-4/5, possibly antalgic. Sensory grossly intact to light touch. Exam limited due to patient's mental status. MRI of C spine does not reveal significant cervical stenosis or cord compression in the cervical spine, but there is significant displacement of spinal cord anteriorly at the upper thoracic spine level. No axial images available. Discussed imaging with Dr Workman. Low probability for epidural or subdural hematoma. Arachnoid cyst or tumor in the differential diagnosis. Discussed in extend with patient's daughter imaging findings and possible treatment options including thoracic laminectomy. Patient's daughter understands risks and benefits of conservative vs operative approach, including prolonged cord compression, paralysis and . Given the patient's age, medical issues and the recent diagnosis of possible intrabdominal lesion, patient's daughter would like to hold off surgical intervention until MRI of abdomen and understanding of patient's overall prognosis. Patient is scheduled for Thoracic and lumbar MRI . Will follow patient's family wishes. NPO after midnight in case family would like to proceed with surgical intervention. Mira Pina MD
--- NOTE | 2019-04-10 20:17 | CONS ---
CONSULTATION NOTE: DATE OF CONSULT: 04/10/19 HISTORY OF PRESENT ILLNESS: The patient is a very pleasant 89-year-old female, who was brought to the emergency room after reported to have sustained a fall this morning. The patient denies loss of consciousness and denies loss of memory. The patient has chronic memory difficulties with dementia. The patient was noted from her relatives to have paralysis of the right upper extremity and significant weakness on the right lower extremity and was not able to bear weight on the right lower extremity. Requested to see the patient by emergency room physician regarding possibility of central cord syndrome. The patient had a CT scan of the cervical spine revealing degenerative disk disease. The patient at this point is doing quite well. She denies any weakness, numbness, or tingling of her extremities. The patient is a poor historian and history was obtained from the patient, her relatives at the bedside, and from the patient's chart. PAST MEDICAL HISTORY: The patient has history of diabetes, hypercholesterolemia , hypertension. PAST SURGICAL HISTORY: Hernia repair x2, hysterectomy, left total hip replacement in 2017. MEDICATIONS: The patient is on: 1. Ascorbic acid. 2. Calcium. 3. Cholecalciferol. 4. Lecithin. 5. Multivitamins. 6. Liberty-3 fatty acids. ALLERGIES: BENZOIN. FAMILY HISTORY: Diabetes, cancer. SOCIAL HISTORY: Tobacco, negative. Alcohol, negative. Recreational drug use, negative. The patient lives in a retirement. PHYSICAL EXAM: The patient is not in acute distress. She is awake, alert, and oriented x1. Her pupils are equal and reactive. Cranial nerves II through XII are grossly intact. Motor 4-5/5 in all extremities with exception of decreased range of motion of bilateral shoulders and the patient has some mild difficulty in abduction of her shoulders bilaterally above the shoulder level. The patient does have some mild antalgic weakness on the right lower extremity, especially at the hip joint and the right knee, as well as at the left hip flexion. Sensory grossly intact to light touch. Deep tendon reflexes +1 bilaterally. No clonus. Babinski positive bilaterally. Payal's negative. The patient has a cervical collar on. She has no tenderness to palpation of the cervical spine. DIAGNOSTIC STUDIES: The patient had a CT scan of the cervical spine revealing degenerative disk disease without evidence of fracture or subluxation. ASSESSMENT: The patient is a very pleasant 89-year-old female with history of dementia, who was reported to have sustained a fall and was reported to have significant weakness of the right upper and right lower extremity. PLAN: The patient at this point is doing quite well. According to her initial presentation, the patient may have presented with suspicion for central cord syndrome, but on her clinical exam, she is significantly improved. We would be happy to obtain a CT scan of the brain, thoracic and lumbar spine, as well as an MRI of the cervical spine and advised to put the patient in a [place] J collar. Further evaluation for shoulder, hip or knee injury per the emergency room. The patient will be currently kindly admitted to hospitalist service. We discussed in extent with the patient and her family including her daughter, who is her caregiver regarding her clinical condition. At this admission, the patient was diagnosed with a large abdominal mass and in terms of surgical intervention, the patient's daughter is very reluctant to make any decisions at this point. She would like to wait until she knows if there is any further diagnostic information from the abdominal lesion before making any further decisions. In the interim, we would recommend to keep the patient on spine precautions with [place] J collar and reevaluate after completion of the studies. Thank you for allowing us to participate in the care of this patient. Please do not hesitate to contact our office if you have any questions or concerns regarding the care of this patient. Mira Pina MD [id number]/[facility] #: [id number] [place]
[2019-04-10] MEDS ORDERED: Gadoteridol* (CONTRAST) 279.3 MG/ML 10 ML IV ONE (20:18)
[2019-04-10] MEDS: cefTRIAXone(*) 1 GM in NS 0.9% 50 ML* 50 ML IVPB SCH (21:40)
[2019-04-10] MEDS: Atenolol TAB* 50 MG PO SCH (22:55)
[2019-04-11 06:03] LABS: ABS Basophils 0.1 10^3/ul (0-0.2); ABS Lymphocytes 1.7 10^3/ul (1.0-4.8); ABS Monocytes 1.4 10^3/ul (0-0.8); ABS Neutrophils 8.3 10^3/ul (1.5-7.7); Eosinophil % 0.1 %; Hematocrit 35 % (35-47); Hemoglobin 11.6 g/dL (12.0-16.0); Lymphocyte % 15.2 %; Mean Corpuscular HGB Conc 33 g/dL (31-36); Mean Corpuscular Hemoglobin 30 pg (27-31); Mean Corpuscular Volume 89 fL (80-97); Mean Platelet Volume 7.8 fL (7.4-10.4); Platelet Count 230 10^3/uL (150-450); Red Blood Count 3.92 10^6 /uL (3.70-4.87); Red Cell Distribution Width 14 % (10-15); White Blood Count 11.5 10^3/uL (3.5-10.8)
[2019-04-11 06:15] LABS: BUN/Creatinine Ratio 21.7 (8-20); Calcium 9.1 mg/dL (8.6-10.3); EGFR African American 69.9 (>60); EGFR Non-African American 57.7 (>60); Potassium 3.9 mmol/L (3.5-5.0)
[2019-04-11 06:32] LABS: Free T4 1.34 ng/dL (0.61-1.12)
--- NOTE | 2019-04-11 06:45 | PN ---
Subjective Date of Service: 04/11/19 Interval History: HD 2 on 04/11 89 F with history of HTN, NIDDM and dementia presented with right hip pain and weakness after fall this morning. Found to have leucocytosis, hyponatremia, abnormal urinalaysis and incidental large peritoneal mass in CT with suspicion of malignancy and no hip fracture. MRI cervicel apine showing compression of upper thoracic spine; subarachnoid cyst>tumor>hematoma No acute overnight events Vitals stable Patient was sitting on a chair and was feeling sore from lying on a bed for al long time. She says that she is feeling hungry and wants to drink water. Her pain in right hip is controlled at this point. Objective Active Medications: Acetaminophen (Tylenol Tab*) 650 mg PO Q4H PRN PRN Reason: PAIN - MILD Atenolol (Tenormin Tab*) 100 mg PO BID [facility] Last Admin: 04/10/19 22:55 Dose: 100 mg Calcium Carbonate (Calcium Carbonate Tab*) 1,250 mg PO DAILY [facility] Cholecalciferol (Vitamin D Tab*) 1,000 units PO DAILY [facility] Glimepiride (Glimepiride (Nf)) 2 mg PO DAILY [facility]; Protocol Ceftriaxone Sodium 1 gm/ (Sodium Chloride) 50 mls @ 100 mls/hr IVPB Q24H [facility] Last Admin: 04/10/19 21:40 Dose: 100 mls/hr Lisinopril (Prinivil Tab*) 20 mg PO QAM [facility] Oxycodone/Acetaminophen (Percocet 5/325 Tab*) 1 tab PO Q4H PRN PRN Reason: PAIN - MODERATE Vital Signs - 8 hr 04/10/19 04/11/19 23:00 02:46 Temperature 98.5 F 97.7 F Pulse Rate 88 82 Respiratory 18 16 Rate Blood Pressure 140/44 119/46 (mmHg) O2 Sat by Pulse 100 95 Oximetry Oxygen Devices in Use Now: None Exam: Patient is lying on a bed in supine position and is not in acute distress and is wearing cervical collar. HEENT: Normocephalic and atraumatic. Sclera anicteric. EOMI. PERRLA. Neck: No lymphadenopathy and enlarged thyroid. NO JVD elevation. Lungs: Good respiratory effort and chest expansion. Clear with no added sound. Heart: Normal in rate and rhythm. S1/S2 heard with systolic murmur but no rubs or gallops. Abdomen: Soft, distended and nontender. There is firm area on mid-lower abdomen which is not tender. Normal BS heard. Extremities; No swelling, cyanosis or clubbing. decreased ROM on her both shoulder joint and hip joint. Neuro: Alert, oriented to self and coperative. CN intact. Vending Stand Supervisor strength normal and sensation intact. 3/5 weakness on her both UE; could not assess well given her pain. RLE-4/5 and LLE-5/5 Result Diagrams: 04/11/19 05:33 04/11/19 05:33 Assess/Plan/Problems-Billing Assessment: 89 F with history of HTN, NIDDM and dementia presented with right hip pain and weakness after fall this morning. Found to have leucocytosis, hyponatremia, abnormal urinalaysis and incidental large peritoneal mass in CT with suspicion of malignancy and no hip fracture. MRI spine showing compression of T2-T9; subarachnoid cyst>tumor>hematoma; pending MRI abdomen - Patient Problems (1) Fall Current Visit: Yes Status: Acute Comment: -s/p fall. -lost balance on the side of bed and fell down with no trauma to head. -has right hip and shoulder pain -No e/o fracture -soft tissue trauma (2) Cord compression Current Visit: Yes Status: Acute Code(s): G95.20 - UNSPECIFIED CORD COMPRESSION SNOMED Code(s): 11473173 Comment: -has bilateral arm weakness and right LE weakness; some component from pain as well. -MRI showing cord compression on T2-T9. -Dr. Jorge following- appreciate recs -Decision to be made whether to operate or not based on MRI abdomen findings (3) Abdominal mass Current Visit: Yes Status: Acute Code(s): R19.00 - INTRA-ABD AND PELVIC SWELLING, MASS AND LUMP, UNSP SITE SNOMED Code(s): 453528054 Comment: -incidental finding of large peritoneal mass -Suspicion of malignancy high; although possibility of heamtoma could not be ruled out;less likely -Pending MRI pelvis (4) UTI (urinary tract infection) Current Visit: Yes Status: Acute Comment: -has urinary frequency and dark colored urine -abnormal urine analysis -pending culture -on ceftriaxone( day 2) (5) Hyponatremia Current Visit: No Status: Acute Code(s): E87.1 - HYPO-OSMOLALITY AND HYPONATREMIA SNOMED Code(s): 69004256 Comment: -chronic mild -now moderate -could be from dehydration -getting better with fluids (6) Diabetes Current Visit: No Status: Chronic Code(s): E11.9 - TYPE 2 DIABETES MELLITUS WITHOUT COMPLICATIONS SNOMED Code(s): 68621623 Comment: -Continue Glimiperide -once starts eating we will start fingersticks and put her on insulin lispro ss (7) HTN (hypertension) Current Visit: No Status: Chronic Code(s): I10 - ESSENTIAL (PRIMARY) HYPERTENSION SNOMED Code(s): 58806252 Comment: - Continue atenolol and lisinopril (8) CVA (cerebral vascular accident) Current Visit: Yes Status: Acute Code(s): I63.9 - CEREBRAL INFARCTION, UNSPECIFIED SNOMED Code(s): 061892877 Comment: -old infarct seen in CT -has baseline dementia -could be vascular dementia (9) DNR (do not resuscitate) Current Visit: Yes Status: Acute Comment: -will start after mri abdomen (10) DVT prophylaxis Current Visit: No Status: Acute Code(s): ALN5381 - SNOMED Code(s): 912828243 Comment: - Continue Lovenox and Warfarin per Ortho Status and Disposition: Inpatient Neurosurgery following Attending: Machelle Olivo Attestation Documenting Resident: Karrie Irby Supervising Physician: Machelle Olivo Attending/Supervising Physician Comment: Agree with resident findings and note. 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 Also hospital course noted to have AGMA and elevated TSH #UE weakness with associated Thoracic MRI findings. Appreciate neurosurgery recommendations, she is a candidate for surgery but given her uncertain mass in abdomen family and patient are electing to gather more data before proceeding to surgery for decompression. Family understands the risk of worsening neurological defects in the delay. #Periotneal mass: Seen incidentally on cheema scan done for mechanical fall. MRI of abdomen pending, will consult to surgery. #UTI: On CTX Day 2/5 awaiting culture data on 04/11 #HypONa: Improved with gentle IVF, urine osms pending to determine if SIADH component #AGMA: Mild gap, no e/o uremia, possibly starvation ketosis? #Elevated TSH, T4 also elevated, subclinical in terms of age from a TSH standpoint, FU T3, antiTPO-unsure at this time whether correlates with periotneal mass. #HTN: Home meds #DVT: Holding lovenox b/c of possiblilty of hematoma as cause for cord compression #Code: DNR Dispo-pending more data and clinical stability, will need PT/OT Attestation: This service has been performed in part by a resident under the direction of a teaching physician.I, Machelle Olivo, performed the service, or was physically present during the critical, or robison portions of the service, furnished by the resident. I participated in the management of the patient.
[2019-04-11] MEDS ORDERED: Lisinopril TAB* 10 MG PO SCH (09:00)
[2019-04-11] MEDS: CMCS: Glimepiride (NF) 2 MG TAB PO SCH (09:29)
[2019-04-11] MEDS: Cholecalciferol TAB* 1000 UNITS PO SCH (09:29)
[2019-04-11] MEDS: Calcium Carbonate TAB* 1250 MG (CALCIUM 500 MG) PO SCH (09:29)
[2019-04-11] MEDS: Atenolol TAB* 50 MG PO SCH ×2 (09:30→09:39)
[2019-04-11] MEDS ORDERED: Gadoteridol* (CONTRAST) 279.3 MG/ML 10 ML IV ONE (12:33)
[2019-04-11] MEDS ORDERED: NS 0.9% 1000 ML** 1,000 ML IV SCH (13:00)
[2019-04-11] MEDS: Acetaminophen TAB* 325 MG PO SCH (18:25)
[2019-04-11] MEDS: cefTRIAXone(*) 1 GM in NS 0.9% 50 ML* 50 ML IVPB SCH (18:25)
--- NOTE | 2019-04-11 21:38 | PN ---
Progress Note - Progress Note Date of Service: 04/11/19 SOAP: Subjective: []Patient was seen earlier this am. Resting comfortably. No events ON. Collar was removed. Objective: []VSS FROM cervical spine AAox1 JOSIAS, CN II-XII grossly intact Motor 4-5/5 UEs, with exception of mildy to elevate UEs above shoulder level. Improved cw admission. 4/5 LEs with exception HF, KE 3-4/5, possibly antalgic. Sensory grossly intact to light touch. Exam limited due to patient's mental status. Assessment: []89 yof fall, progressive LE weakness, upper T spine possible arachnoid cyst Plan: []Monitor VS, Neurochecks CT T/L spine ;: no fracture MRI T spine: possible arachnoid cyst with cord compression MRI of L spine: DDD Patient had MRI of abdomen today. If family would like to consider further intervention, would consider CT myelogram to further assess cystic lesion and possible communication with SA space. Appreciate IM consult. Mira Pina MD
[2019-04-12] MEDS: Acetaminophen TAB* 325 MG PO SCH ×4 (03:57→17:52)
--- NOTE | 2019-04-12 07:05 | PN ---
Subjective Date of Service: 04/12/19 Interval History: HD 3 on 04/12 89 F with history of HTN, NIDDM and dementia presented with right hip pain and weakness after fall this morning. Found to have leucocytosis, hyponatremia, UTI and incidental large peritoneal mass in CT with suspicion of malignancy and no hip fracture. MRI cervicel spine showing compression of upper thoracic spine; subarachnoid cyst>tumor>hematoma No acute overnight events vitals stable Patient complains of back pain and feels sore. She understands her medical problem and is clear that she doesnot want any surgery for it. Objective Active Medications: Acetaminophen (Tylenol Tab*) [address] [facility] Last Admin: 04/12/19 06:12 Dose: 650 mg Calcium Carbonate (Calcium Carbonate Tab*) 1,[address] [facility] Last Admin: 04/11/19 09:29 Dose: 1,250 mg Cholecalciferol (Vitamin D Tab*) 1,000 units PO DAILY [facility] Last Admin: 04/11/19 09:29 Dose: 1,000 units Glimepiride (Glimepiride (Nf)) [address] [facility]; Protocol Last Admin: 04/11/19 09:29 Dose: 2 mg Ceftriaxone Sodium 1 gm/ (Sodium Chloride) 50 mls @ 100 mls/hr IVPB Q24H [facility] Last Admin: 04/11/19 18:25 Dose: 100 mls/hr Oxycodone/Acetaminophen (Percocet 5/325 Tab*) 1 tab PO Q4H PRN PRN Reason: PAIN - MODERATE Vital Signs - 8 hr 04/11/19 04/12/19 23:26 03:59 Temperature 98.1 F 98.2 F Pulse Rate 83 81 Respiratory 24 24 Rate Blood Pressure 117/49 126/59 (mmHg) O2 Sat by Pulse 96 96 Oximetry Oxygen Devices in Use Now: None Exam: Patient is lying on a bed in supine position and is not in acute distress and is wearing cervical collar. HEENT: Normocephalic and atraumatic. Sclera anicteric. EOMI. PERRLA. Neck: No lymphadenopathy and enlarged thyroid. NO JVD elevation. Lungs: Good respiratory effort and chest expansion. Clear with no added sound. Heart: Normal in rate and rhythm. S1/S2 heard with systolic murmur but no rubs or gallops. Abdomen: Soft, distended and nontender. There is firm area on mid-lower abdomen which is not tender. Normal BS heard. Extremities; No swelling, cyanosis or clubbing. decreased ROM on her both shoulder joint and hip joint. Neuro: Alert, oriented to self and coperative. CN intact. Secretary strength normal and sensation intact. 3/5 weakness on her both UE; could not assess well given her pain. RLE-4/5 and LLE-5/5 Result Diagrams: 04/12/19 09:40 04/12/19 09:40 Assess/Plan/Problems-Billing Assessment: 89 F with history of HTN, NIDDM and dementia presented with right hip pain and weakness after fall this morning. Found to have leucocytosis, hyponatremia, abnormal urinalaysis and incidental large peritoneal mass in CT with suspicion of malignancy and no hip fracture. MRI spine showing compression of T2-T9; subarachnoid cyst>tumor>hematoma; MRI abdomen shows large mass likely originating from ovary. - Patient Problems (1) Fall Current Visit: Yes Status: Acute Comment: -s/p fall. -lost balance on the side of bed and fell down with no trauma to head. -has right hip and shoulder pain -No e/o fracture -soft tissue trauma pain controlled on oxycodone, tylenol and percocet (2) Cord compression Current Visit: Yes Status: Acute Code(s): G95.20 - UNSPECIFIED CORD COMPRESSION SNOMED Code(s): 18291332 Comment: -has bilateral arm weakness and right LE weakness; some component from pain as well. -MRI showing cord compression on T2-T9. -Dr. Jorge following- appreciate recs -Decision to be made whether to operate or not based on MRI abdomen findings (3) Abdominal mass Current Visit: Yes Status: Acute Code(s): R19.00 - INTRA-ABD AND PELVIC SWELLING, MASS AND LUMP, UNSP SITE SNOMED Code(s): 509006732 Comment: -incidental finding of large peritoneal mass -Suspicion of malignancy high; although possibility of heamtoma could not be ruled out;less likely -MRI pelvis- mass likely originating from ovary -Appreciate gynae recs- Biopsy not a appropriate option and patient may need surgery surgery to have atissue diagnosis; but he strongly thinks that this is most likely malignancy. -pending CEA 125 -pat and family does not want surgery -palliative consult placed (4) UTI (urinary tract infection) Current Visit: Yes Status: Acute Comment: -has urinary frequency and dark colored urine -abnormal urine analysis -pending culture -on ceftriaxone( day 3) (5) Hyponatremia Current Visit: No Status: Acute Code(s): E87.1 - HYPO-OSMOLALITY AND HYPONATREMIA SNOMED Code(s): 25848119 Comment: -chronic mild -now moderate -could be from dehydration -getting better with fluids (6) Diabetes Current Visit: No Status: Chronic Code(s): E11.9 - TYPE 2 DIABETES MELLITUS WITHOUT COMPLICATIONS SNOMED Code(s): 60097277 Comment: -Continue Glimiperide (7) HTN (hypertension) Current Visit: No Status: Chronic Code(s): I10 - ESSENTIAL (PRIMARY) HYPERTENSION SNOMED Code(s): 98361587 Comment: -hold for now (8) CVA (cerebral vascular accident) Current Visit: Yes Status: Acute Code(s): I63.9 - CEREBRAL INFARCTION, UNSPECIFIED SNOMED Code(s): 712188597 Comment: -old infarct seen in CT -has baseline dementia -could be vascular dementia (9) DNR (do not resuscitate) Current Visit: Yes Status: Acute Comment: Status and Disposition: Inpatient Neurosurgery following palliative care Attending: Machelle Olivo Attestation Documenting Resident: Karrie Irby Supervising Physician: Machelle Olivo Attending/Supervising Physician Comment: Agree with resident findings and note. Attending A/P 89F PMH dementia, living independently until now, NIDDM, HTN, HLD, who presented s/p mechanical fall with residual UE weakness found to have T2-T9 subarachnoid cyst vs hematoma with residual deficit from cord herniation, hypONa , UTI, and incidental peritoneal mass which appears to be possibly metastatic ovarian cancer. #UE weakness with associated Thoracic MRI findings. Appreciate neurosurgery recommendations, she is a candidate for surgery but given her uncertain mass in abdomen family and patient are electing to gather more data before proceeding to surgery for decompression. Family understands the risk of worsening neurological defects in the delay. 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 #HTN: Home meds resumed #DVT: Holding lovenox b/c of possiblilty of hematoma as cause for cord compression #Code: DNR Dispo-pending more data and clinical stability, will need PT/OT -Palliative consult placed Attestation: This service has been performed in part by a resident under the direction of a teaching physician.I, Machelle Olivo, performed the service, or was physically present during the critical, or robison portions of the service, furnished by the resident. I participated in the management of the patient.
[2019-04-12] MEDS: CMCS: Glimepiride (NF) 2 MG TAB PO SCH (09:00)
[2019-04-12] MEDS: Cholecalciferol TAB* 1000 UNITS PO SCH (09:00)
[2019-04-12] MEDS: Calcium Carbonate TAB* 1250 MG (CALCIUM 500 MG) PO SCH (09:01)
--- NOTE | 2019-04-12 09:33 | PN ---
Progress Note - Progress Note Date of Service: 04/12/19 Note: brief consult note 89 yo admitted to hospital after a fall and Right hip pain /injury related to her fall . Medical history significant for Niddm dementia and hypertension. She was found to have a large pelvic mass on CT and MRI of her abdomen. There is some concern about possible compression in her upper spine. Neurosurgery is consulted. I reviewed her imaging with the radiologist. There are imaging findings that would be very concerning for an ovarian malignancy . Currently there does not appear to be findings in her spine which point to metastatic disease. In general our approach to large masses like this are to refer to rehabilitation center manager oncology for surgical exploartion and diagnosis/ treatment . In general these are not biopsies radiologically as it worsens the prognosis for a malignancy. A discussion with the family seems appropriate to assess goals at this point in time. A ca 125 may be helpful to assist in narrowing the differential somewhat though I am uncertain it will make a significant difference in her ultimate treatment or outcome. Addendum: spoke with Patient's son and daughter about current findings and likelihood of malignancy . I explained the rationale for various procedures and typical treatment in the case of benign or malignant pelvic masses.Their questions were answered Rodney Flores MD
[2019-04-12 10:08] LABS: ABS Eosinophils 0.1 10^3/ul (0-0.6); ABS Lymphocytes 1.1 10^3/ul (1.0-4.8); ABS Monocytes 0.8 10^3/ul (0-0.8); ABS Neutrophils 7.3 10^3/ul (1.5-7.7); Eosinophil % 0.8 %; Hematocrit 35 % (35-47); Hemoglobin 11.9 g/dL (12.0-16.0); Lymphocyte % 11.9 %; Mean Corpuscular HGB Conc 34 g/dL (31-36); Mean Corpuscular Hemoglobin 30 pg (27-31); Mean Corpuscular Volume 88 fL (80-97); Mean Platelet Volume 7.8 fL (7.4-10.4); Platelet Count 209 10^3/uL (150-450); Red Blood Count 3.94 10^6 /uL (3.70-4.87); Red Cell Distribution Width 14 % (10-15); White Blood Count 9.4 10^3/uL (3.5-10.8)
[2019-04-12 10:22] LABS: BUN/Creatinine Ratio 29.9 (8-20); Calcium 8.6 mg/dL (8.6-10.3); EGFR African American 74.5 (>60); EGFR Non-African American 61.6 (>60); Potassium 3.8 mmol/L (3.5-5.0)
--- NOTE | 2019-04-12 15:13 | PN ---
Progress Note - Progress Note Date of Service: 04/12/19 - PCP-Dill Note: Meeting family at 2pm.
[2019-04-12] MEDS: oxyCODONE TAB* 5 MG TAB PO SCH (15:58)
[2019-04-12] MEDS: Senna TAB 8.6 mg* TAB PO SCH (15:59)
[2019-04-12] MEDS: cefTRIAXone(*) 1 GM in NS 0.9% 50 ML* 50 ML IVPB SCH (17:52)
--- NOTE | 2019-04-12 18:12 | PN ---
Progress Note - Progress Note Date of Service: 04/12/19 SOAP: Subjective: [] Patient was seen earlier this am. No events ON. Objective: []VSS AAOx1 JOSIAS, CN II-XII grossly intact Motor 4-5/5 UEs, with exception of ability to elevate UEs above shoulder level. Improved cw admission. 4/5 LEs with exception HF, KE 3-4/5, possibly antalgic. Sensory grossly intact to light touch. Exam limited due to patient's mental status. Assessment: []89 yof fall, progressive LE weakness, upper T spine possible arachnoid cyst Plan: [] ]Monitor VS, Neurochecks Awaiting family decisions. If family would like to consider further intervention, would consider CT myelogram . Appreciate IM consult. Mira Pina MD
[2019-04-13] MEDS: Acetaminophen TAB* 325 MG PO SCH ×4 (00:38→17:42)
[2019-04-13] MEDS: oxyCODONE TAB* 5 MG TAB PO SCH ×3 (00:38→17:42)
[2019-04-13 06:46] LABS: ABS Eosinophils 0.1 10^3/ul (0-0.6); ABS Lymphocytes 1.4 10^3/ul (1.0-4.8); ABS Monocytes 0.7 10^3/ul (0-0.8); ABS Neutrophils 4.9 10^3/ul (1.5-7.7); Hematocrit 35 % (35-47); Hemoglobin 11.8 g/dL (12.0-16.0); Lymphocyte % 19.2 %; Mean Corpuscular HGB Conc 34 g/dL (31-36); Mean Corpuscular Hemoglobin 30 pg (27-31); Mean Corpuscular Volume 87 fL (80-97); Mean Platelet Volume 7.8 fL (7.4-10.4); Nucleated Red Blood Cells % 0.1; Platelet Count 220 10^3/uL (150-450); Red Blood Count 3.99 10^6 /uL (3.70-4.87); Red Cell Distribution Width 14 % (10-15); White Blood Count 7.1 10^3/uL (3.5-10.8)
--- NOTE | 2019-04-13 07:00 | PN ---
Subjective Date of Service: 04/13/19 Interval History: HD 4 on 04/13 89 F with history of HTN, NIDDM and dementia presented with right hip pain and weakness after fall this morning. Found to have leucocytosis, hyponatremia, UTI and incidental large peritoneal mass in CT with suspicion of malignancy and no hip fracture. MRI cervicel spine showing compression of upper thoracic spine; subarachnoid cyst>tumor>hematoma No acute overnight events vitals stable Patient in happy mood and is cheerful today although she complains of soreness of her body. She was putting lipstick by the help of the mirror and using her both hand. She has not had BM since admission. Objective Active Medications: Acetaminophen (Tylenol Tab*) 650 mg PO Q6HR [facility] Last Admin: 04/13/19 05:48 Dose: 650 mg Calcium Carbonate (Calcium Carbonate Tab*) 1,250 mg PO DAILY [facility] Last Admin: 04/12/19 09:01 Dose: 1,250 mg Cholecalciferol (Vitamin D Tab*) 1,000 units PO DAILY [facility] Last Admin: 04/12/19 09:00 Dose: 1,000 units Glimepiride (Glimepiride (Nf)) 2 mg PO DAILY [facility]; Protocol Last Admin: 04/12/19 09:00 Dose: 2 mg Ceftriaxone Sodium 1 gm/ (Sodium Chloride) 50 mls @ 100 mls/hr IVPB Q24H [facility] Last Admin: 04/12/19 17:52 Dose: 100 mls/hr Oxycodone HCl (Roxycodone Tab*) 5 mg PO Q8H [facility] Last Admin: 04/13/19 00:38 Dose: Not Given Oxycodone/Acetaminophen (Percocet 5/325 Tab*) 1 tab PO Q4H PRN PRN Reason: PAIN - MODERATE Senna (Senokot 8.6 Mg Tab*) 1 tab PO DAILY [facility] Last Admin: 04/12/19 15:59 Dose: 1 tab Vital Signs - 8 hr 04/12/19 04/13/19 23:27 03:58 Temperature 98.2 F 98.3 F Pulse Rate 78 77 Respiratory 16 16 Rate Blood Pressure 141/64 118/54 (mmHg) O2 Sat by Pulse 98 97 Oximetry Oxygen Devices in Use Now: None Exam: Patient is lying on her bed with no acute distress. HEENT: normocephalic and atraumatic Lungs: Clear with no added sounds Heart: S1/S2 heard with murmur Extremities:No swelling, cyanosis or clubbing. decreased ROM on her both shoulder joint(left>right) and hip joint. Neuro: Alert, oriented to self and coperative. CN intact. 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 3/5 weakness on her both UE. RLE-4/5 and LLE-5/5 Result Diagrams: 04/13/19 06:19 04/13/19 06:19 Assess/Plan/Problems-Billing Assessment: 89 F with history of HTN, NIDDM and dementia presented with right hip pain and weakness after fall this morning. Found to have leucocytosis, hyponatremia, abnormal urinalaysis and incidental large peritoneal mass in CT with suspicion of malignancy and no hip fracture. MRI spine showing compression of T2-T9; subarachnoid cyst>tumor>hematoma; MRI abdomen shows large mass likely originating from ovary. - Patient Problems (1) Fall Current Visit: Yes Status: Acute Comment: -s/p fall. -lost balance on the side of bed and fell down with no trauma to head. -has right hip and shoulder pain -No e/o fracture -soft tissue trauma -pain controlled on oxycodone, tylenol and percocet (2) Cord compression Current Visit: Yes Status: Acute Code(s): G95.20 - UNSPECIFIED CORD COMPRESSION SNOMED Code(s): 84126268 Comment: -has bilateral arm weakness and right LE weakness; some component from pain as well. -MRI showing cord compression on T2-T9; also has residual deficit from cord herniation. -Dr. Jorge following- appreciate recs -Decision to be made whether to operate or not by family; wants palliative approach given peritoneal mass; and they understand the consequence of delay. (3) Abdominal mass Current Visit: Yes Status: Acute Code(s): R19.00 - INTRA-ABD AND PELVIC SWELLING, MASS AND LUMP, UNSP SITE SNOMED Code(s): 790468258 Comment: -incidental finding of large peritoneal mass -Suspicion of malignancy high; although possibility of heamtoma could not be ruled out;less likely -MRI pelvis- mass likely originating from ovary -Appreciate gynae recs- Biopsy not an appropriate option and patient may need surgery to have a tissue diagnosis; but he strongly thinks that this is most likely malignancy. -pending CEA 125 -pat and family does not want surgery -palliative consult placed- will have meeting today with Dr. Conklin at 2 pm (4) UTI (urinary tract infection) Current Visit: Yes Status: Acute Comment: -has urinary frequency and dark colored urine -abnormal urine analysis -pending culture -on ceftriaxone( day 4/5) (5) Hyponatremia Current Visit: No Status: Acute Code(s): E87.1 - HYPO-OSMOLALITY AND HYPONATREMIA SNOMED Code(s): 96612479 Comment: -chronic mild -now moderate -could be from dehydration -continuing iv fluids; we will monitor (6) Diabetes Current Visit: No Status: Chronic Code(s): E11.9 - TYPE 2 DIABETES MELLITUS WITHOUT COMPLICATIONS SNOMED Code(s): 91460652 Comment: -Continue Glimiperide (7) HTN (hypertension) Current Visit: No Status: Chronic Code(s): I10 - ESSENTIAL (PRIMARY) HYPERTENSION SNOMED Code(s): 78510829 Comment: -hold for now (8) CVA (cerebral vascular accident) Current Visit: Yes Status: Acute Code(s): I63.9 - CEREBRAL INFARCTION, UNSPECIFIED SNOMED Code(s): 511203857 Comment: -old infarct seen in CT -has baseline dementia -could be vascular dementia (9) DNR (do not resuscitate) Current Visit: Yes Status: Acute Comment: Status and Disposition: Inpatient Neurosurgery following palliative care encourage PT Attending: Machelle Olivo Attestation Documenting Resident: Karrie Irby Supervising Physician: Machelle Olivo Attending/Supervising Physician Comment: Agree with resident findings and note. 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 #UE weakness with associated Thoracic MRI findings. Appreciate neurosurgery recommendations, she is a candidate for surgery but given her uncertain mass in abdomen family and patient are electing to gather more data before proceeding to surgery for decompression. Family understands the risk of worsening neurological defects in the delay. #Periotneal mass: Seems Ovarian in nature, with periotenal findings making Stage 4 if oncologic, no ability to bx given could worsen Ca, Appreciate .NET PROGRAMMER findings, pts family would like conservative measures and would NOT want a surgery -With high concern for malignancy at stage 4, consult to palliative #UTI: On CTX Day 4/5 on 04/13 #HypONa: Improved with gentle IVF, urine osms pending to determine if SIADH component #AGMA: Resolving #Elevated TSH, T4 also elevated, subclinical in terms of age from a TSH standpoint, FU T3, antiTPO-unsure at this time whether correlates with periotneal mass. #HTN: Home meds resumed #DVT: Holding lovenox b/c of possiblilty of hematoma as cause for cord compression #Code: DNR Dispo-pending more data and clinical stability, will need PT/OT -Appreciate palliative care's workl Attestation: This service has been performed in part by a resident under the direction of a teaching physician.I, Machelle Olivo, performed the service, or was physically present during the critical, or robison portions of the service, furnished by the resident. I participated in the management of the patient.
[2019-04-13 07:08] LABS: BUN/Creatinine Ratio 31.3 (8-20); EGFR African American 82.1 (>60); EGFR Non-African American 67.8 (>60); Potassium 4.1 mmol/L (3.5-5.0)
[2019-04-13] MEDS: CMCS: Glimepiride (NF) 2 MG TAB PO SCH (09:06)
[2019-04-13] MEDS: Senna TAB 8.6 mg* TAB PO SCH (09:06)
[2019-04-13] MEDS: Cholecalciferol TAB* 1000 UNITS PO SCH (09:06)
[2019-04-13] MEDS: Calcium Carbonate TAB* 1250 MG (CALCIUM 500 MG) PO SCH (09:18)
[2019-04-13] MEDS ORDERED: Magnesium Hydroxide LIQ* 30 ML UDC PO PRN (11:07)
[2019-04-13] MEDS: NS 0.9% 1000 ML** 1,000 ML IV SCH (13:04)
--- NOTE | 2019-04-13 15:41 | CONSULT ---
Palliative / Hospice Consult Ordering Provider: Karrie Irby - PCP-Lawrence Referal Reason: Goals of care/senna/oxycodone - Subjective Code Status: DNR Advance Directives Location: In Chart MOLST Part A Completed: Yes - on chart MOLST Part E Completed:: Yes - on chart - History or Present Illness History or Present Illness: 89yo female with mild dementia presented to ER s/p fall with R hip pain. PMH is significant for NIDDM, HTN, mild and mild tricuspid insufficiency. 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 Studies ABD/Pel CT-large mixed attenuation peritoneal mass, DJD hip , Cspine CT-multilevel spondylosis, L shoulder xray-osteopenia, OA, cerival MRI- mild DJD C4-6, brain CT-encephalomacia of R frontal lobe ? old stroke, lumbar CT -no fx, DJD multiple levels, thoracic CT-no fracture, DJD multiple levels, lumbar MRI no fx, DJD, thoracic MRI-subarachnoid cyst vs cord herniation T2-T9, pelvic MRI-large pelvic mass origin most likely ovarian with cystic and solid areas, H/H 11.9/35, BUN/Cr 26/.87, egfr 61.6, Ca 8.6, tbili 1.4, TSH 7.85, UC normal ivan and E.Coli, CA 125-19 and INR 1.21. Pt was admitted to the floor with R hip pain, pelvic mass and cord compression. Pt has 1 prior ER visit for rash. All history is from pt, family and medical record. Lab Values: Abnormal Lab Results 04/12/19 04/13/19 04/13/19 13:02 06:19 06:19 WBC 7.1 RBC 3.99 Hgb 11.8 L Hct 35 MCV 87 MCH 30 MCHC 34 RDW 14 Plt Count 220 MPV 7.8 Neut % (Auto) 69.1 Lymph % (Auto) 19.2 [place] % (Auto) 9.4 Eos % (Auto) 2.0 Baso % (Auto) 0.3 Absolute Neuts (auto) 4.9 Absolute Lymphs (auto) 1.4 Absolute Monos (auto) 0.7 Absolute Eos (auto) 0.1 Absolute Basos (auto) 0.0 Absolute Nucleated RBC 0.0 Nucleated RBC % 0.1 Sodium 123 L Potassium 4.1 Chloride 94 L Carbon Dioxide 22 Anion Gap 7 BUN 25 H Creatinine 0.80 Est GFR ( Amer) 82.1 Est GFR (Non-Af Amer) 67.8 BUN/Creatinine Ratio 31.3 H Glucose 310 H Calcium 9.0 CA 125 Antigen 19 Laboratory Last Values WBC 7.1 10^3/uL (3.5-10.8) 04/13/19 06:19 RBC 3.99 10^6 /uL (3.70-4.87) 04/13/19 06:19 Hgb 11.8 g/dL (12.0-16.0) L 04/13/19 06:19 Hct 35 % (35-47) 04/13/19 06:19 MCV 87 fL (80-97) 04/13/19 06:19 MCH 30 pg (27-31) 04/13/19 06:19 MCHC 34 g/dL (31-36) 04/13/19 06:19 RDW 14 % (10-15) 04/13/19 06:19 Plt Count 220 10^3/uL (150-450) 04/13/19 06:19 MPV 7.8 fL (7.4-10.4) 04/13/19 06:19 Neut % (Auto) 69.1 % 04/13/19 06:19 Lymph % (Auto) 19.2 % 04/13/19 06:19 [place] % (Auto) 9.4 % 04/13/19 06:19 Eos % (Auto) 2.0 % 04/13/19 06:19 Baso % (Auto) 0.3 % 04/13/19 06:19 Absolute Neuts (auto) 4.9 10^3/ul (1.5-7.7) 04/13/19 06:19 Absolute Lymphs (auto) 1.4 10^3/ul (1.0-4.8) 04/13/19 06:19 Absolute Monos (auto) 0.7 10^3/ul (0-0.8) 04/13/19 06:19 Absolute Eos (auto) 0.1 10^3/ul (0-0.6) 04/13/19 06:19 Absolute Basos (auto) 0.0 10^3/ul (0-0.2) 04/13/19 06:19 Absolute Nucleated RBC 0.0 10^3/ul 04/13/19 06:19 Nucleated RBC % 0.1 04/13/19 06:19 INR (Anticoag Therapy) 1.21 (0.82-1.09) H 04/10/19 16:28 APTT 30.8 seconds (26.0-38.0) 04/10/19 16:28 Sodium 123 mmol/L (135-145) L 04/13/19 06:19 Potassium 4.1 mmol/L (3.5-5.0) 04/13/19 06:19 Chloride 94 mmol/L (101-111) L 04/13/19 06:19 Carbon Dioxide 22 mmol/L (22-32) 04/13/19 06:19 Anion Gap 7 mmol/L (2-11) 04/13/19 06:19 BUN 25 mg/dL (6-24) H 04/13/19 06:19 Creatinine 0.80 mg/dL (0.51-0.95) 04/13/19 06:19 Est GFR ( Amer) 82.1 (>60) 04/13/19 06:19 Est GFR (Non-Af Amer) 67.8 (>60) 04/13/19 06:19 BUN/Creatinine Ratio 31.3 (8-20) H 04/13/19 06:19 Glucose 310 mg/dL (70-100) H 04/13/19 06:19 Hemoglobin A1c 7.6 % (4.0-5.6) H 04/10/19 12:07 Serum Osmolality 281 mOsm/kg (275-295) 04/10/19 12:07 Calcium 9.0 mg/dL (8.6-10.3) 04/13/19 06:19 Total Bilirubin 1.40 mg/dL (0.2-1.0) H 04/10/19 12:07 AST 15 U/L (13-39) 04/10/19 12:07 ALT 6 U/L (7-52) L 04/10/19 12:07 Alkaline Phosphatase 59 U/L (34-104) 04/10/19 12:07 Total Creatine Kinase 175 U/L (10-223) 04/10/19 12:07 Total Protein 6.7 g/dL (6.4-8.9) 04/10/19 12:07 Albumin 3.9 g/dL (3.2-5.2) 04/10/19 12:07 Globulin 2.8 g/dL (2-4) 04/10/19 12:07 Albumin/Globulin Ratio 1.4 (1-3) 04/10/19 12:07 CA 125 Antigen 19 U/mL (<46) 04/12/19 13:02 TSH 7.85 mcIU/mL (0.34-5.60) H 04/10/19 12:07 Free T4 1.34 ng/dL (0.61-1.12) H 04/11/19 05:33 Urine Color Cailin 04/10/19 11:48 Urine Appearance Cloudy 04/10/19 11:48 Urine pH 5.0 (5-9) 04/10/19 11:48 Ur Specific [place] 1.027 (1.010-1.030) 04/10/19 11:48 Urine Protein 1+(30 mg/dl) (Negative) A 04/10/19 11:48 Urine Ketones 2+ (Negative) A 04/10/19 11:48 Urine Blood Negative (Negative) 04/10/19 11:48 Urine Nitrate Negative (Negative) 04/10/19 11:48 Urine Bilirubin Negative (Negative) 04/10/19 11:48 Urine Urobilinogen Negative (Negative) 04/10/19 11:48 Ur Leukocyte Esterase 2+ (Negative) A 04/10/19 11:48 Urine WBC (Auto) 3+(>20/hpf) (Absent) A 04/10/19 11:48 Urine RBC (Auto) Absent (Absent) 04/10/19 11:48 Ur Squamous Epith Cells Present (Absent) A 04/10/19 11:48 Ur Transition Epith Cell Present (Absent) A 04/10/19 11:48 Urine Bacteria Absent (Absent) 04/10/19 11:48 Hyaline Casts Present (Absent) A 04/10/19 11:48 Urine Glucose 1+(50 mg/dl) (Negative) A 04/10/19 11:48 - Objective Active Medications: Acetaminophen (Tylenol Tab*) 650 mg PO Q6HR [facility] Last Admin: 04/13/19 13:00 Dose: 650 mg Calcium Carbonate (Calcium Carbonate Tab*) 1,250 mg PO DAILY [facility] Last Admin: 04/13/19 09:18 Dose: Not Given Cholecalciferol (Vitamin D Tab*) 1,000 units PO DAILY [facility] Last Admin: 04/13/19 09:06 Dose: 1,000 units Glimepiride (Glimepiride (Nf)) 2 mg PO DAILY [facility]; Protocol Last Admin: 04/13/19 09:06 Dose: 2 mg Ceftriaxone Sodium 1 gm/ (Sodium Chloride) 50 mls @ 100 mls/hr IVPB Q24H [facility] Last Admin: 04/12/19 17:52 Dose: 100 mls/hr Sodium Chloride (Ns 0.9% 1000 Ml) 1,000 mls @ 125 mls/hr IV PER RATE [facility] Last Admin: 04/13/19 13:04 Dose: 125 mls/hr Magnesium Hydroxide (Milk Of Magnesia Liq*) 30 ml PO Q6H PRN PRN Reason: CONSTIPATION Oxycodone HCl (Roxycodone Tab*) 5 mg PO Q8H [facility] Last Admin: 04/13/19 09:07 Dose: 5 mg Oxycodone/Acetaminophen (Percocet 5/325 Tab*) 1 tab PO Q4H PRN PRN Reason: PAIN - MODERATE Senna (Senokot 8.6 Mg Tab*) 1 tab PO DAILY [facility] Last Admin: 04/13/19 09:06 Dose: 1 tab Vital Signs: Vital Signs: Temp Pulse Resp BP Pulse Ox 98.3 F 77 18 118/54 97 04/13/19 03:58 04/13/19 03:58 04/13/19 13:02 04/13/19 03:58 04/13/19 03:58 Patient Weight: Weight 66.406 kg Intake and Output: Intake & Output 04/11/19 04/12/19 04/13/19 04/14/19 06:59 06:59 06:59 06:59 Intake Total 180 2292 1380 360 Output Total 185 280 915 475 Balance -5 2011 465 -115 Weight 66.406 kg Intake: IV Fluids 2005 NS 1277 ceftriaxone 728 IVPB 47 ceftriaxone 47 Oral 882 725 1768 360 Output: Urine 25 200 Garzon 280 715 475 Straight Cath 160 Other: # Bowel Movements 1 0 Estimated Stool Amount Medium # Voids 1 ADLs: Meal Record Start: 04/10/19 18: 27 Freq: DAILY@0900,1400,1800 Status: Active Protocol: Created 04/10/19 18:27 System (Rec: 04/10/19 18:27 System MED-C16) Document 04/11/19 09:00 [id number] (Rec: 04/11/19 09:38 [id number] MED-C09) Document 04/11/19 13:28 [id number] (Rec: 04/11/19 13:28 [id number] MED-C09) Document 04/11/19 18:00 [id number] (Rec: 04/11/19 18:42 [id number] MED-C05) Document 04/12/19 09:00 [id number] (Rec: 04/12/19 10:34 [id number] MED-C09) Document 04/12/19 14:00 [id number] (Rec: 04/12/19 15:33 [id number] MED-M04) Document 04/12/19 18:00 [id number] (Rec: 04/12/19 18:57 [id number] MED-C26) Document 04/13/19 09:00 [id number] (Rec: 04/13/19 10:06 [id number] MED-C09) Document 04/13/19 14:00 [id number] (Rec: 04/13/19 14:55 [id number] MED-C09) Intake and Output Start: 04/10/19 11: 46 Freq: Status: Active Protocol: Created 04/10/19 11:46 System (Rec: 04/10/19 11:46 System [id number]) Intake and Output Start: 04/10/19 18: 27 Freq: DAILY@0600,1400,2200 Status: Active Protocol: Created 04/10/19 18:27 System (Rec: 04/10/19 18:27 System MED-C16) Document 04/10/19 22:00 [id number] (Rec: 04/11/19 00:07 [id number] MED-C11) Document 04/11/19 04:09 [id number] (Rec: 04/11/19 04:09 [id number] MED-C12) Document 04/11/19 05:10 [id number] (Rec: 04/11/19 05:11 [id number] MED-C11) Document 04/11/19 13:55 [id number] (Rec: 04/11/19 13:55 [id number] MED-C09) Document 04/11/19 22:00 [id number] (Rec: 04/12/19 01:44 [id number] MED-C13) Document 04/12/19 06:00 [id number] (Rec: 04/12/19 06:28 [id number] MED-C13) Document 04/12/19 13:09 [id number] (Rec: 04/12/19 13:09 [id number] MED-C03) Document 04/12/19 14:00 [id number] (Rec: 04/12/19 15:33 [id number] MED-M04) Document 04/12/19 21:55 [id number] (Rec: 04/12/19 21:58 [id number] MED-C09) Document 04/13/19 06:00 [id number] (Rec: 04/13/19 06:52 [id number] MED-C05) Document 04/13/19 14:00 [id number] (Rec: 04/13/19 14:55 [id number] MED-C09) Head: Normal Ears/Nose/Mouth/Throat: Clear Oropharnyx Neck: NL Appearance and Movements; NL JVP Cardiovascular: NL Sounds; No Murmurs; No JVD Respiratory: Symmetrical Chest Expansion and Respiratory Effort Abdominal: NL Sounds; No Tenderness; No Distention Neurological: - - alert to self and place not to date - Assessment Assessment: 89yo female with dementia s/p fall with pelvic mass - Plan Consult Plan (MU): Palliative Plan: Spoke with son Arnaldo and his , Agnieszka and her pt was unable to participate because we couldn't move her to separate room. Family seems to have a good understanding of what is going on with pt's health. They are unable to care for pt at her apartment. Information/brochure on hospice given. They are very interested in hospice because they feel their mother will not do well with surgery either to her back with the cord compression or to the pelvis for the mass. They want to keep her comfortable. As of now they would like to try Rehab to help pt with ambulation/pivot. They have picked [facility]. After rehab if pt can't come home they are interested in [facility] or SNF with hospice sign on. I explained it's difficult to get placed at Residence once in longterm, also they must request a hospice referral be sent for hospice care at SNF. Pt would be eligible for hospice with diagnosis of large pelvic mass suspected to be cancerous and cord compression not seeking treatment. KPS 50%, PPS 50% - Time On Unit Date of Evaluation: 04/13/19 Hospice Consult Time in: 14:00 Hospice Consult Time Out: 15:00 Hospice Consult Time Total: 60 > 50% of Time Spend In Counseling or Coordinating Care: Yes
[2019-04-13] MEDS: cefTRIAXone(*) 1 GM in NS 0.9% 50 ML* 50 ML IVPB SCH (17:42)
[2019-04-14] MEDS: Acetaminophen TAB* 325 MG PO SCH ×4 (01:53→18:02)
[2019-04-14] MEDS: oxyCODONE TAB* 5 MG TAB PO SCH ×3 (01:53→17:04)
[2019-04-14] MEDS: NS 0.9% 1000 ML** 1,000 ML IV SCH ×2 (03:43→15:54)
[2019-04-14 06:37] LABS: Calcium 8.7 mg/dL (8.6-10.3); EGFR African American 114.4 (>60); EGFR Non-African American 94.6 (>60); Potassium 4.5 mmol/L (3.5-5.0)
--- NOTE | 2019-04-14 06:42 | PN ---
Subjective Date of Service: 04/14/19 Interval History: HD 5 on 04/14 89 F with history of HTN, NIDDM and dementia presented with right hip pain and weakness after fall this morning. Found to have leucocytosis, hyponatremia, UTI and incidental large peritoneal mass in CT with suspicion of malignancy and no hip fracture. MRI cervicel spine showing compression of upper thoracic spine; subarachnoid cyst>tumor>hematoma No acute overnight events vitals stable Objective Active Medications: Acetaminophen (Tylenol Tab*) 650 mg PO Q6HR [facility] Last Admin: 04/14/19 01:53 Dose: 650 mg Calcium Carbonate (Calcium Carbonate Tab*) 1,250 mg PO DAILY [facility] Last Admin: 04/13/19 09:18 Dose: Not Given Cholecalciferol (Vitamin D Tab*) 1,000 units PO DAILY [facility] Last Admin: 04/13/19 09:06 Dose: 1,000 units Glimepiride (Glimepiride (Nf)) 2 mg PO DAILY [facility]; Protocol Last Admin: 04/13/19 09:06 Dose: 2 mg Ceftriaxone Sodium 1 gm/ (Sodium Chloride) 50 mls @ 100 mls/hr IVPB Q24H [facility] Last Admin: 04/13/19 17:42 Dose: 100 mls/hr Sodium Chloride (Ns 0.9% 1000 Ml) 1,000 mls @ 125 mls/hr IV PER RATE [facility] Last Admin: 04/14/19 03:43 Dose: 125 mls/hr Magnesium Hydroxide (Milk Of Magnesia Liq*) 30 ml PO Q6H PRN PRN Reason: CONSTIPATION Oxycodone HCl (Roxycodone Tab*) 5 mg PO Q8H [facility] Last Admin: 04/14/19 01:53 Dose: 5 mg Oxycodone/Acetaminophen (Percocet 5/325 Tab*) 1 tab PO Q4H PRN PRN Reason: PAIN - MODERATE Senna (Senokot 8.6 Mg Tab*) 1 tab PO DAILY [facility] Last Admin: 04/13/19 09:06 Dose: 1 tab Vital Signs - 8 hr 04/14/19 04/14/19 04/14/19 00:21 01:53 04:00 Temperature 97.5 F Pulse Rate 82 Respiratory 18 20 16 Rate Blood Pressure 132/55 (mmHg) O2 Sat by Pulse 95 Oximetry 04/14/19 04:07 Temperature 97 F Pulse Rate 82 Respiratory 17 Rate Blood Pressure 148/65 (mmHg) O2 Sat by Pulse 96 Oximetry Oxygen Devices in Use Now: None Result Diagrams: 04/13/19 06:19 04/14/19 06:04 Assess/Plan/Problems-Billing Assessment: 89 F with history of HTN, NIDDM and dementia presented with right hip pain and weakness after fall this morning. Found to have leucocytosis, hyponatremia, abnormal urinalaysis and incidental large peritoneal mass in CT with suspicion of malignancy and no hip fracture. MRI spine showing compression of T2-T9; subarachnoid cyst>tumor>hematoma; MRI abdomen shows large mass likely originating from ovary. - Patient Problems (1) Fall Current Visit: Yes Status: Acute Comment: -s/p fall. -lost balance on the side of bed and fell down with no trauma to head. -has right hip and shoulder pain -No e/o fracture -soft tissue trauma -pain controlled on oxycodone, tylenol and percocet (2) Cord compression Current Visit: Yes Status: Acute Code(s): G95.20 - UNSPECIFIED CORD COMPRESSION SNOMED Code(s): 36410821 Comment: -has bilateral arm weakness and right LE weakness; some component from pain as well. -MRI showing cord compression on T2-T9; also has residual deficit from cord herniation. -Dr. Jorge following- appreciate recs -Decision to be made whether to operate or not by family; wants palliative approach given peritoneal mass; and they understand the consequence of delay. (3) Abdominal mass Current Visit: Yes Status: Acute Code(s): R19.00 - INTRA-ABD AND PELVIC SWELLING, MASS AND LUMP, UNSP SITE SNOMED Code(s): 599283731 Comment: -incidental finding of large peritoneal mass -Suspicion of malignancy high; although possibility of heamtoma could not be ruled out;less likely -MRI pelvis- mass likely originating from ovary -Appreciate gynae recs- Biopsy not an appropriate option and patient may need surgery to have a tissue diagnosis; but he strongly thinks that this is most likely malignancy. -pending CEA 125 -pat and family does not want surgery -palliative consult placed- will have meeting today with Dr. Conklin at 2 pm (4) UTI (urinary tract infection) Current Visit: Yes Status: Acute Comment: -has urinary frequency and dark colored urine -abnormal urine analysis -pending culture -on ceftriaxone( day 4/5) (5) Hyponatremia Current Visit: No Status: Acute Code(s): E87.1 - HYPO-OSMOLALITY AND HYPONATREMIA SNOMED Code(s): 71204792 Comment: -chronic mild -now moderate -could be from dehydration -continuing iv fluids; we will monitor (6) Diabetes Current Visit: No Status: Chronic Code(s): E11.9 - TYPE 2 DIABETES MELLITUS WITHOUT COMPLICATIONS SNOMED Code(s): 04657079 Comment: -Continue Glimiperide (7) HTN (hypertension) Current Visit: No Status: Chronic Code(s): I10 - ESSENTIAL (PRIMARY) HYPERTENSION SNOMED Code(s): 85343109 Comment: -hold for now (8) CVA (cerebral vascular accident) Current Visit: Yes Status: Acute Code(s): I63.9 - CEREBRAL INFARCTION, UNSPECIFIED SNOMED Code(s): 940732443 Comment: -old infarct seen in CT -has baseline dementia -could be vascular dementia (9) DNR (do not resuscitate) Current Visit: Yes Status: Acute Comment: Status and Disposition: Inpatient Neurosurgery following palliative care encourage PT Attestation Attending/Supervising Physician Comment: Agree with resident findings and note. 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 #UE weakness with associated Thoracic MRI findings. Appreciate neurosurgery recommendations, she is a candidate for surgery but given her uncertain mass in abdomen family and patient are electing to gather more data before proceeding to surgery for decompression. Family understands the risk of worsening neurological defects in the delay. #Periotneal mass: Seems Ovarian in nature, with periotenal findings making Stage 4 if oncologic, no ability to bx given could worsen Ca, Appreciate FLAT IRONER findings, pts family would like conservative measures and would NOT want a surgery -With high concern for malignancy at stage 4, consult to palliative #UTI: On CTX Day 5/5 on 04/14 #HypONa: Improved with gentle IVF, urine osms pending to determine if SIADH component #AGMA: Resolving #Elevated TSH, T4 also elevated, subclinical in terms of age from a TSH standpoint, FU T3, antiTPO-unsure at this time whether correlates with periotneal mass. #HTN: Home meds resumed #DVT: Holding lovenox b/c of possiblilty of hematoma as cause for cord compression #Code: DNR Dispo-pending more data and clinical stability, will need PT/OT -Appreciate palliative care's work
[2019-04-14] MEDS: Calcium Carbonate TAB* 1250 MG (CALCIUM 500 MG) PO SCH (09:53)
[2019-04-14] MEDS: Cholecalciferol TAB* 1000 UNITS PO SCH (09:54)
[2019-04-14] MEDS: Senna TAB 8.6 mg* TAB PO SCH (09:54)
[2019-04-14] MEDS: CMCS: Glimepiride (NF) 2 MG TAB PO SCH (09:54)
[2019-04-14] MEDS: oxyCODONE/Acetamin 5/325 MG* TAB PO PRN (12:51)
[2019-04-14] MEDS: cefTRIAXone(*) 1 GM in NS 0.9% 50 ML* 50 ML IVPB SCH (18:01)
[2019-04-15] MEDS: oxyCODONE TAB* 5 MG TAB PO SCH ×3 (00:10→16:19)
[2019-04-15] MEDS: Acetaminophen TAB* 325 MG PO SCH ×4 (00:10→17:56)
[2019-04-15] MEDS: NS 0.9% 1000 ML** 1,000 ML IV SCH (02:50)
[2019-04-15] MEDS: oxyCODONE/Acetamin 5/325 MG* TAB PO PRN ×2 (02:56→18:01)
--- NOTE | 2019-04-15 07:48 | PN ---
Subjective Date of Service: 04/15/19 Interval History: HD6 on 04/15 89F PMH dementia, living independently until now, NIDDM, HTN, HLD, who presented s/p mechanical fall with residual UE weakness found to have T2-T9 subarachnoid cyst vs hematoma with residual deficit from cord herniation, hypONa , UTI, and incidental peritoneal mass which appears to be possibly metastatic ovarian cancer. Awaiting [facility] and then plans to address hospice from [facility]. VSS no acute events overnight, mild HTN This morning, seen after breakfast, no c/o pain other than in R heel, pleasant and forgetful, oriented to herself and roughly situation, needs frequent prompting and hard of hearing. Denies BM recently. On scheduled pain meds given prior sig pain and not asking for pain meds, can refuse if pt looks comfortable. Excellent UOP, still on IVF 2/2 to poor PO intake. Denies CP SOB GI or MSK c/o other than above. Objective Active Medications: Acetaminophen (Tylenol Tab*) 650 mg PO Q6HR [facility] Last Admin: 04/15/19 05:21 Dose: 650 mg Calcium Carbonate (Calcium Carbonate Tab*) 1,250 mg PO DAILY [facility] Last Admin: 04/14/19 09:53 Dose: 1,250 mg Cholecalciferol (Vitamin D Tab*) 1,000 units PO DAILY [facility] Last Admin: 04/14/19 09:54 Dose: 1,000 units Glimepiride (Glimepiride (Nf)) 2 mg PO DAILY [facility]; Protocol Last Admin: 04/14/19 09:54 Dose: 2 mg Ceftriaxone Sodium 1 gm/ (Sodium Chloride) 50 mls @ 100 mls/hr IVPB Q24H [facility] Last Admin: 04/14/19 18:01 Dose: 100 mls/hr Sodium Chloride (Ns 0.9% 1000 Ml) 1,000 mls @ 125 mls/hr IV PER RATE [facility] Last Admin: 04/15/19 02:50 Dose: 125 mls/hr Magnesium Hydroxide (Milk Of Magnesia Liq*) 30 ml PO Q6H PRN PRN Reason: CONSTIPATION Oxycodone HCl (Roxycodone Tab*) 5 mg PO Q8H [facility] Last Admin: 04/15/19 00:10 Dose: Not Given Oxycodone/Acetaminophen (Percocet 5/325 Tab*) 1 tab PO Q4H PRN PRN Reason: PAIN - MODERATE Last Admin: 04/15/19 02:56 Dose: 1 tab Senna (Senokot 8.6 Mg Tab*) 1 tab PO DAILY [facility] Last Admin: 04/14/19 09:54 Dose: 1 tab Vital Signs - 8 hr 04/15/19 04/15/19 04/15/19 02:51 02:56 05:22 Temperature 97.9 F Pulse Rate 95 Respiratory 18 16 16 Rate Blood Pressure 151/58 (mmHg) O2 Sat by Pulse 94 Oximetry Oxygen Devices in Use Now: None Appearance: Pleasant well appearing woman in [place] Eyes: No Scleral Icterus, PERRLA Ears/Nose/Mouth/Throat: NL Teeth, Lips, Gums Respiratory: Symmetrical Chest Expansion and Respiratory Effort, Clear to Auscultation Cardiovascular: NL Sounds; No Murmurs; No JVD, RRR Abdominal: NL Sounds; No Tenderness; No Distention, No Hepatosplenomegaly Extremities: No Edema, - - Blt heel blisters, R side unroofed Skin: - - Skin findings as above Neurological: - - Oriented to self and situation, forgetful, ABSENTEE-SHAWNEE Result Diagrams: 04/13/19 06:19 04/14/19 06:04 Microbiology and Other Data: Microbiology 04/10/19 11:48 Urine Culture - Final Urine Escherichia Coli Normal [facility]: MRI T Spine 04/10 Spinal cord: Normal signal intensity of the visualized spinal cord. Cauda equina terminates at T12. No abnormal cord enhancement. As seen on prior cervical spine MRI at the level of T2-T9 is a posterior subarachnoid space CSF signal intensity focus which measures 14.1 cm in length (series 4, image 7) and a maximal axial measurement of 1.1 x 0.7 cm (series 10, image 14). There is flow artifact identified within this lesion which shows no postcontrast enhancement. MRI Pelvis 04/11 IMPRESSION: Large pelvic mass likely ovarian in origin although nonspecific due to its large size. This has both cystic and solid component with multiple areas of solid enhancing areas. Retroperitoneal mass is considered less likely. Assess/Plan/Problems-Billing Assessment: 89F PMH dementia, living independently until now, NIDDM, HTN, HLD, who presented s/p mechanical fall with residual UE weakness found to have T2-T9 subarachnoid cyst vs hematoma with residual deficit from cord herniation, hypONa , UTI, and incidental peritoneal mass which appears to be possibly metastatic ovarian cancer. Awaiting [facility] and then plans to address hospice from [facility]. - Patient Problems (1) Fall Current Visit: Yes Status: Acute Comment: -No e/o hip fracture and shoulder fracture on imaging, most pain from soft tissue trauma -pain controlled on oxycodone, tylenol and percocet (2) Cord compression Current Visit: Yes Status: Acute Code(s): G95.20 - UNSPECIFIED CORD COMPRESSION SNOMED Code(s): 65773045 Comment: -MRI showing cord compression on T2-T9; also has residual deficit from cord herniation. -Dr. Jorge following initially, no plan for surgery given overall GOC -Decision to be made whether to operate or not by family; wants palliative approach given peritoneal mass; and they understand the consequence of delay. (3) Abdominal mass Current Visit: Yes Status: Acute Code(s): R19.00 - INTRA-ABD AND PELVIC SWELLING, MASS AND LUMP, UNSP SITE SNOMED Code(s): 413653907 Comment: -Suspicion of malignancy high, presumed ovarian CA, though CA 125 low -Appreciate home coordinator recs- Biopsy not an appropriate option and patient may need surgery to have a tissue diagnosis; but he strongly thinks that this is most likely malignancy, family has declined surgery. -Palliative recommending [facility] for fall and cord issues and then pursuing hospice outpt (4) UTI (urinary tract infection) Current Visit: Yes Status: Acute Comment: -EColi -on ceftriaxone(day 09/03), d/c 04/15 -remove chacko on 04/15 (5) Hyponatremia Current Visit: No Status: Acute Code(s): E87.1 - HYPO-OSMOLALITY AND HYPONATREMIA SNOMED Code(s): 77272826 Comment: -Poor PO intake here, hypONa chronic but worsened when stopped IVF -Continue gentle at 75cc/hr, can d/c 04/16 if PO intake improves (6) Diabetes Current Visit: No Status: Chronic Code(s): E11.9 - TYPE 2 DIABETES MELLITUS WITHOUT COMPLICATIONS SNOMED Code(s): 26864920 Comment: -Continue Glimiperide (7) HTN (hypertension) Current Visit: No Status: Chronic Code(s): I10 - ESSENTIAL (PRIMARY) HYPERTENSION SNOMED Code(s): 90395782 Comment: -Amlodipine increased to 7.5mg, home meds lisinopril and atenolol held on admission (8) CVA (cerebral vascular accident) Current Visit: Yes Status: Acute Code(s): I63.9 - CEREBRAL INFARCTION, UNSPECIFIED SNOMED Code(s): 667204605 Comment: -old infarct seen in CT, contributing to pts dementia and recent decline, family reports hx of speech issues several months ago and she declined eval at that time. (9) DVT prophylaxis Current Visit: No Status: Acute Code(s): SAR3067 - SNOMED Code(s): 197251755 Comment: -Start LMWH (10) DNR (do not resuscitate) Current Visit: Yes Status: Acute Comment: Status and Disposition: Awaiting [facility] for rehab from fall, family to pursue hospice oupt Stable for d/c in next 24 to 48 hours
[2019-04-15] MEDS ORDERED: amLODIPine TAB* 5 MG PO SCH (09:00)
[2019-04-15] MEDS ORDERED: NS 0.9% 1000 ML** 1,000 ML IV SCH (09:37)
[2019-04-15] MEDS: CMCS: Glimepiride (NF) 2 MG TAB PO SCH (09:43)
[2019-04-15] MEDS: Cholecalciferol TAB* 1000 UNITS PO SCH (09:43)
[2019-04-15] MEDS: Senna TAB 8.6 mg* TAB PO SCH (09:43)
[2019-04-15] MEDS: Calcium Carbonate TAB* 1250 MG (CALCIUM 500 MG) PO SCH (09:43)
[2019-04-15] MEDS ORDERED: Polyethylene Glycol 3350* 17 GM PACKET PO PRN (10:13)
[2019-04-15] MEDS: Enoxaparin(*) 30 MG/0.3 ML SYR SUBCUT SCH (12:53)
[2019-04-15] MEDS: cefTRIAXone(*) 1 GM in NS 0.9% 50 ML* 50 ML IVPB SCH (18:11)
[2019-04-16] MEDS: Acetaminophen TAB* 325 MG PO SCH ×4 (00:14→18:02)
[2019-04-16] MEDS: oxyCODONE TAB* 5 MG TAB PO SCH ×3 (00:15→18:01)
[2019-04-16] MEDS: Senna TAB 8.6 mg* TAB PO SCH (08:36)
[2019-04-16] MEDS: CMCS: Glimepiride (NF) 2 MG TAB PO SCH (08:36)
[2019-04-16] MEDS: amLODIPine TAB* 5 MG PO SCH (08:36)
[2019-04-16] MEDS: Cholecalciferol TAB* 1000 UNITS PO SCH (08:36)
[2019-04-16] MEDS: Calcium Carbonate TAB* 1250 MG (CALCIUM 500 MG) PO SCH (08:36)
[2019-04-16] MEDS: Enoxaparin(*) 30 MG/0.3 ML SYR SUBCUT SCH (12:39)
--- NOTE | 2019-04-16 15:41 | DS ---
DISCHARGE SUMMARY: DATE OF ADMISSION: 04/10/19 DATE OF DISCHARGE: 04/16/19 ADMITTING PROVIDER: Dr. Karrie Irby. ATTENDING PHYSICIAN ON DAY OF DISCHARGE: Adis Cantu MD. PRIMARY CARE PROVIDER: Dr. Bravo. CHIEF COMPLAINT: Mechanical fall, right hip pain, right arm weakness, and left shoulder pain. PRINCIPAL DIAGNOSES: 1. Mechanical fall. 2. 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 3. A 12.2 x 15.3 x 16.4 large complex pelvic mass with suspicion for malignancy - Desire for hospice rather than further work-up 4. Urinary tract infection. HISTORY OF PRESENT ILLNESS/HOSPITAL COURSE: Haley Reddy is an 89-year-old female with past medical history of aid-zbfmwuo-cooimzuxd diabetes mellitus, hypertension, dementia, mild aortic stenosis, and mild mitral insufficiency. Please see H and P of Dr. Karrie Irby for full details, but briefly, she had a mechanical fall on the morning of admission. Her initial imaging included CT abdomen and pelvis, which showed a large mixed-attenuation, well- circumscribed peritoneal mass that looked suspicious for malignancy. Because of her weakness on both upper extremities, neurosurgery was consulted and MRIs were obtained. The MRI of thoracic spine with and without contrast demonstrated subarachnoid cyst versus ventral idiopathic cord herniation from T2 to T9 causing anterior displacement and compression of the cord with no associated myelopathy. Dr. Pina continued to follow the case, and given the large pelvic mass suspicious for malignancy, family ultimately decided not to pursue additional workup of the thoracic spine abnormalities including not pursuing a CT myelogram. A pelvis MRI was obtained on 04/11/19, which demonstrated again large pelvic mass, likely ovarian in origin, though nonspecific due to its large size and has both cystic and solid components with multiple areas of solid enhancing areas. A retroperitoneal mass is considered less likely. The patient was found to have E. coli UTI, was treated with 5 days of ceftriaxone. The course was complicated by hyponatremia between levels 123 at worst and 130 at best. The patient's family ultimately decided to pursue palliative care/hospice at a local long-term after meeting with Dr. Zora David of palliative care. Dr. Flores of gynecology was consulted on the case and thought that there was most likely malignancy and given the family had declined surgery, there was no other indication for a biopsy. CA-125 was checked and it was 19. Imaging studies included: 1. Cervical spine CT, which demonstrated no fracture or traumatic malalignment of the cervical spine, varying degrees of multilevel spondyloses resulting in up to severe right neural foraminal stenosis at C4-C5. There is no severe osseous encroachment of the spinal canal. There is right otomastoid effusion. 2. Shoulder x-ray on 04/10/19, which showed no acute osseous injury, the degree of osteopenia making nondisplaced fracture radiologically occult. 3. Cervical spine MRI, which demonstrated mild degenerative disk disease from C4 through C6, subarachnoid thickening of the posterior vertebral column beginning at T2 level compressing and displacing the spinal cord in the anterior direction. Differential diagnosis includes epidural hematoma, subarachnoid cyst, or less likely malignancy. Contrast-enhanced thoracic spine MRI was advised for characterization. 4. CT brain which demonstrated encephalomalacia of the right frontal lobe, which could be age-indeterminate infarction. No prior images to compare. There is a right mastoid air cell effusion and age-appropriate chronic findings included calcified atherosclerosis, evidence of microvascular disease, and mild involutional changes. 5. Lumbar spine CT, which demonstrated no acute fracture or displacement involving the thoracic or lumbar spine. Multilevel degenerative changes most severe at the lower lumbar spine where there is spinal stenosis and neural foraminal stenosis. 6. CT abdomen and pelvis with IV contrast which demonstrated a large mixed- attenuation, well-circumscribed peritoneal mass. The coronal plane imaging indicates the mass may be extending from the loops of small-bowel in the left upper quadrant, but there is no evidence of bowel obstruction. Other malignant disease such as ovarian malignancy is on the differential. With the history of trauma, the possibility of hematoma exists, although that is considered less likely. Recommendation for MRI with oral contrast. There are also degenerative changes of the right hip, but no definite acute fracture or dislocation. Additional chronic degenerative and iatrogenic findings are described in the body of the report. 7. Lumbar spine MRI without contrast which demonstrated no acute abnormality, grade 1 anterolisthesis of L4 on L5, multilevel degenerative disk disease with neural foraminal narrowing. Mild bilateral neural foraminal narrowing at L2-L3 and L3-L4, moderate at L4-L5, and mild at L5-S1. Mild spinal canal stenosis at L2-L3 and L3-L4, moderate at L4-L5. DISCHARGE MEDICATIONS: Include: 1. Acetaminophen 650 mg p.o. q.6 hours p.r.n. 2. Calcium carbonate 600 mg p.o. daily. 3. Cholecalciferol 25 mcg p.o. daily. 4. Glimepiride 2 mg p.o. daily. 5. Ascorbic acid 500 mg p.o. daily. 6. Atenolol 100 mg p.o. b.i.d. 7. Lecithin 1200 mg p.o. daily. 8. Lisinopril 20 mg p.o. daily. 9. Metformin 1000 mg p.o. b.i.d. 10. Multivitamin 1 tab p.o. daily. 11. [place]-3 fatty acids 1000 mg p.o. daily. 12. Percocet 1 tab p.o. q.4 hours p.r.n. (new). 13. MiraLAX 17 g p.o. daily p.r.n. for constipation (new). 14. Sennosides 8.6 mg p.o. daily p.r.n. (new). DISPOSITION: [facility]. CONDITION: Guarded, with plans on enrolling in hospice. FOLLOWUP: Please follow up with provider, Dr. Patrick Ellison, at [facility]. Family desires to enroll in hospice services there. The patient's last sodium was checked on 04/14/19 and was 126. DISCHARGE DIET: Carbohydrate consistent, heart-healthy, unchanged. TIME SPENT ON DISCHARGE: 45 minutes. [id number]/CPS #: [id number] MTDD
--- NOTE | 2019-04-16 17:31 | PN ---
Subjective Date of Service: 04/16/19 Interval History: No acute events overnight. Denies chest pain, SOB, abdominal pain, f/c/n/v. Constipated. Was accepted to [facility]. Was discharged but [facility] could not arrange transport in time to get there by 1600. Objective Active Medications: Acetaminophen (Tylenol Tab*) 650 mg PO Q6HR [facility] Last Admin: 04/16/19 12:39 Dose: 650 mg Amlodipine Besylate (Norvasc Tab*) 7.5 mg PO DAILY [facility] Last Admin: 04/16/19 08:36 Dose: 7.5 mg Calcium Carbonate (Calcium Carbonate Tab*) 1,250 mg PO DAILY [facility] Last Admin: 04/16/19 08:36 Dose: 1,250 mg Cholecalciferol (Vitamin D Tab*) 1,000 units PO DAILY [facility] Last Admin: 04/16/19 08:36 Dose: 1,000 units Enoxaparin Sodium (Lovenox(*)) 30 mg SUBCUT Q24H [facility] Last Admin: 04/16/19 12:39 Dose: 30 mg Glimepiride (Glimepiride (Nf)) 2 mg PO DAILY [facility]; Protocol Last Admin: 04/16/19 08:36 Dose: 2 mg Magnesium Hydroxide (Milk Of Magnesia Liq*) 30 ml PO Q6H PRN PRN Reason: CONSTIPATION Oxycodone HCl (Roxycodone Tab*) 5 mg PO Q8H [facility] Last Admin: 04/16/19 08:36 Dose: 5 mg Oxycodone/Acetaminophen (Percocet 5/325 Tab*) 1 tab PO Q4H PRN PRN Reason: PAIN - MODERATE Last Admin: 04/15/19 18:01 Dose: 1 tab Polyethylene Glycol/Electrolytes (Miralax*) 17 gm PO DAILY PRN PRN Reason: CONSTIPATION Last Admin: 04/15/19 12:54 Dose: 17 gm Senna (Senokot 8.6 Mg Tab*) 1 tab PO DAILY [facility] Last Admin: 04/16/19 08:36 Dose: 1 tab Vital Signs - 8 hr 04/16/19 11:30 Respiratory 16 Rate Oxygen Devices in Use Now: None Appearance: NAD Eyes: No Scleral Icterus Ears/Nose/Mouth/Throat: NL Teeth, Lips, Gums Neck: NL Appearance and Movements; NL JVP, Trachea Midline Respiratory: Symmetrical Chest Expansion and Respiratory Effort, Clear to Auscultation Cardiovascular: NL Sounds; No Murmurs; No JVD, RRR Abdominal: - - soft, nontender, distended. Extremities: No Edema Neurological: Alert and Oriented x 3, - - initially hesitant about year. Nutrition: Taking PO's Result Diagrams: 04/13/19 06:19 04/14/19 06:04 Microbiology and Other Data: Microbiology 04/10/19 11:48 Urine Urine Culture - Final Escherichia Coli Normal [facility]: MRI T Spine 04/10 Spinal cord: Normal signal intensity of the visualized spinal cord. Cauda equina terminates at T12. No abnormal cord enhancement. As seen on prior cervical spine MRI at the level of T2-T9 is a posterior subarachnoid space CSF signal intensity focus which measures 14.1 cm in length (series 4, image 7) and a maximal axial measurement of 1.1 x 0.7 cm (series 10, image 14). There is flow artifact identified within this lesion which shows no postcontrast enhancement. MRI Pelvis 04/11 IMPRESSION: Large pelvic mass likely ovarian in origin although nonspecific due to its large size. This has both cystic and solid component with multiple areas of solid enhancing areas. Retroperitoneal mass is considered less likely. Assess/Plan/Problems-Billing Assessment: 89F PMH dementia, living independently until now, NIDDM, HTN, HLD, who presented s/p mechanical fall with residual UE weakness found to have T2-T9 subarachnoid cyst vs hematoma with residual deficit from cord herniation, hyponatremia, Ecoli UTI, and incidental large peritoneal mass which appears to be possible metastatic ovarian cancer. Accepted to [facility], transportation issues delayed today. 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 -Palliative recommending [facility] for fall and cord issues and then pursuing hospice outpt (2) CVA (cerebral vascular accident) Current Visit: Yes Status: Acute Code(s): I63.9 - CEREBRAL INFARCTION, UNSPECIFIED SNOMED Code(s): 316990310 Comment: -old infarct seen in CT, contributing to pts dementia and recent decline, family reports hx of speech issues several months ago and she declined eval at that time. (3) Cord compression Current Visit: Yes Status: Acute Code(s): G95.20 - UNSPECIFIED CORD COMPRESSION SNOMED Code(s): 03100103 Comment: -MRI showing cord compression on T2-T9; also has residual deficit from cord herniation. -Dr. Jorge following initially, no plan for surgery given overall GOC -Decision to be made whether to operate or not by family; wants palliative approach given peritoneal mass; and they understand the consequence of delay. (4) Fall Current Visit: Yes Status: Acute Comment: -No e/o hip fracture and shoulder fracture on imaging, most pain from soft tissue trauma -pain controlled on oxycodone, tylenol and percocet (5) Right hip pain Current Visit: Yes Status: Acute Code(s): M25.551 - PAIN IN RIGHT HIP SNOMED Code(s): 52964510 (6) UTI (urinary tract infection) Current Visit: Yes Status: Acute Comment: -EColi -on ceftriaxone(day 09/03), d/c 04/15 -remove chacko on 04/15 (7) DVT prophylaxis Current Visit: No Status: Acute Code(s): UAH9832 - SNOMED Code(s): 712959156 Comment: -Start LMWH (8) Full code status Current Visit: No Status: Acute Code(s): Z78.9 - OTHER SPECIFIED HEALTH STATUS SNOMED Code(s): 235866340 (9) Hyponatremia Current Visit: No Status: Acute Code(s): E87.1 - HYPO-OSMOLALITY AND HYPONATREMIA SNOMED Code(s): 15859560 Comment: -Poor PO intake here, hyponatremia chronic but worsened when stopped IVF. - No labs last 2 days given GOC. stop IVF given palliative GOC and tolerating some po intake. (10) Diabetes Current Visit: No Status: Chronic Code(s): E11.9 - TYPE 2 DIABETES MELLITUS WITHOUT COMPLICATIONS SNOMED Code(s): 49104824 Comment: -Continue Glimiperide (11) HTN (hypertension) Current Visit: No Status: Chronic Code(s): I10 - ESSENTIAL (PRIMARY) HYPERTENSION SNOMED Code(s): 72018246 Comment: -not controlled. on Amlodipine 7.5mg (new this admission), home meds lisinopril 20mg and atenolol held on admission but will add back lisinopril 10mg. (12) DNR (do not resuscitate) Current Visit: Yes Status: Acute Comment: Status and Disposition: To [facility] 04/17 (was discharged 04/16 but [facility] could not arrange transport in time by 1600 arrival cut off).
[2019-04-16] MEDS ORDERED: Lisinopril TAB* 10 MG PO SCH (18:00)
[2019-04-17] MEDS: oxyCODONE TAB* 5 MG TAB PO SCH ×2 (00:58→08:23)
[2019-04-17] MEDS: Acetaminophen TAB* 325 MG PO SCH ×2 (00:58→05:34)
[2019-04-17 03:25] VITALS: BP 134/61
[2019-04-17] MEDS: Senna TAB 8.6 mg* TAB PO SCH (08:22)
[2019-04-17] MEDS: Cholecalciferol TAB* 1000 UNITS PO SCH (08:22)
[2019-04-17] MEDS: CMCS: Glimepiride (NF) 2 MG TAB PO SCH (08:22)
[2019-04-17] MEDS: Lisinopril TAB* 10 MG PO SCH ×2 (08:23→08:27)
[2019-04-17] MEDS: amLODIPine TAB* 5 MG PO SCH (08:23)
[2019-04-17] MEDS: Calcium Carbonate TAB* 1250 MG (CALCIUM 500 MG) PO SCH (08:30)
== END 2019-04-17 11:30 | DRG 92 ==
LOC: ED 11:36 → MED 16:14
PROVIDERS: ADMIT Internal Medicine; ATTEND Internal Medicine
PROC: 30233N1 Transfusion of Nonautologous Red Blood Cells into Peripheral Vein, Percutaneous Approach (ICD-10-PCS; principal; 2019-04-16)
DX: G95.20 Unspecified cord compression (principal); E87.1 Hypo-osmolality and hyponatremia; N39.0 Urinary tract infection, site not specified; E87.2 Acidosis; G96.19 Other disorders of meninges, not elsewhere classified; E11.9 Type 2 diabetes mellitus without complications; E78.00 Pure hypercholesterolemia, unspecified; I10 Essential (primary) hypertension; Z96.642 Presence of left artificial hip joint; F03.90 Unspecified dementia, unspecified severity, without behavioral disturbance, psychotic disturbance, mood disturbance, and anxiety; M51.36 Other intervertebral disc degeneration, lumbar region; I08.2 Rheumatic disorders of both aortic and tricuspid valves; M85.812 Other specified disorders of bone density and structure, left shoulder; W19.XXXA Unspecified fall, initial encounter; D72.829 Elevated white blood cell count, unspecified; R19.00 Intra-abdominal and pelvic swelling, mass and lump, unspecified site; E86.0 Dehydration; Z66 Do not resuscitate; M25.551 Pain in right hip; M19.90 Unspecified osteoarthritis, unspecified site; M51.24 Other intervertebral disc displacement, thoracic region; B96.20 Unspecified Escherichia coli [E. coli] as the cause of diseases classified elsewhere; M50.30 Other cervical disc degeneration, unspecified cervical region; M48.061 Spinal stenosis, lumbar region without neurogenic claudication; Z88.8 Allergy status to other drugs, medicaments and biological substances; Y92.9 Unspecified place or not applicable; Z86.73 Personal history of transient ischemic attack (TIA), and cerebral infarction without residual deficits; Z79.84 Long term (current) use of oral hypoglycemic drugs; Z79.899 Other long term (current) drug therapy
CPT/HCPCS: 36415; 70450; 72125; 72128; 72131; 72141; 72148; 72157; 72197; 74177; 80048; 80053; 81003; 81015; 82550; 83036; 83930; 84439; 84443; 85025; 85610; 85730; 86304; 87077; 87086; 87186; 99284; A9270-GY; A9579; G8978-GP-CK; G8979-GP-CI; G8979-GP-CJ; J0696; J1650; Q9967

== ENCOUNTER 2019-05-01 08:32 | Inpatient (IN) | payer MEDICARE ==
[2019-05-01] MEDS ORDERED: NS 0.9% 1000 ML** 1,000 ML IV ONE (08:46)
--- NOTE | 2019-05-01 08:49 | ED ---
Shortness of Breath - HPI Summary HPI Summary: Patient is an 89 y/o F presenting to the ED via EMS for a chief complaint of shortness of breath that began on 05/01/19. Patient is present with her son. Per EMS, patient lives at [facility] and found to have an oxygen saturation of 75% on room air by staff. On EMS arrival, patient had an oxygen saturation of 89% on room air and placed on 4L of oxygen. Patient has sores on the bilateral feet covered with dressing and she admits bilateral LE edema, fatigue, and chest tightness with deep breaths. Patient denies fever, chest pain , cough, abdominal pain, calf pain, or recent cold-like symptoms. She was asymptomatic on 04/30/19 per patient's son. Patient states she uses a wheelchair and is unable to ambulate. PMHx is significant for HTN and DM, but any cardiac problems or blood clots are denied. PMHx is also significant for a 7 inch tumor in her abdomen, possibly ovarian cancer when found with CT imaging. Any PSHx of stent placement or cardiac surgery is denied. - History of Current Complaint Time Seen by Provider: 05/01/19 08:33 Hx Obtained From: Patient, Family/Sen[employer] - Son, EMS Onset/Duration: Sudden Onset, Still Present Timing: Constant Current Severity: Moderate Dyspnea At: Rest Aggravating Factors: Deep Breaths Alleviating Factors: Oxygen Associated Signs & Symptoms: Edema - Bilateral LE - Allergy/Home Medications Allergies/Adverse Reactions: Allergies Allergy/AdvReac Type Severity Reaction Status Date / Time benzoin Allergy Swelling Verified 12/15/18 11:45 Home Medications: Home Medications Polyethylene Glycol 3350* [Miralax*] 17 gm PO DAILY 05/01/19 [History Confirmed 05/01/19] PMH/Surg Hx/FS Hx/Imm Hx Previously Healthy: Yes Endocrine/Hematology History: Reports: Hx Diabetes - type 2 Denies: Hx Anticoagulant Therapy, Hx Thyroid Disease Cardiovascular History: Reports: Hx Hypercholesterolemia, Hx Hypertension, Other Cardiovascular Problems/Disorders - luther cholesterol Denies: Hx Angina, Hx Congestive Heart Failure, Hx Coronary Artery Disease, Hx Deep Vein Thrombosis, Hx Myocardial Infarction, Hx Pacemaker/ICD, Hx Valvular Heart Disease Respiratory History: Denies: Hx Asthma, Hx Chronic Obstructive Pulmonary Disease (COPD), Hx Lung Cancer, Hx Pneumonia, Hx Pulmonary Embolism GI History: Denies: Hx Gall Bladder Disease, Hx Gastrointestinal Bleed, Hx Ulcer, Hx Urosepsis History: Reports: Other Problems/Disorders - urinary infection - last week - just finished antibiotic Denies: Hx Kidney Stones, Hx Renal Disease Musculoskeletal History: Reports: Hx Arthritis Sensory History: Reports: Hx Contacts or Glasses Denies: Hx Legally Blind, Hx Deafness, Hx Hearing Aid, Other Sensory Impairments Opthamlomology History: Reports: Hx Contacts or Glasses Denies: Hx Legally Blind, Other Sensory Impairments EENT History: Denies: Hx Deafness Neurological History: Reports: Hx Dementia Denies: Hx Migraine, Hx Seizures, Hx Transient Ischemic Attacks (TIA) Psychiatric History: Denies: Hx Anxiety, Hx Depression, Hx Panic Disorder, Hx Schizophrenia, Hx Bipolar Disorder - Cancer History Hx Chemotherapy: No Hx Radiation Therapy: No - Surgical History Surgical History: Yes Surgery Procedure, Year, and Place: hernia repair x2. hysterectomy. left total hip replacement 06/2016. carpal tunnel Hx Anesthesia Reactions: No Infectious Disease History: No Infectious Disease History: Denies: Traveled Outside the [place] in Last 30 Days - Family History Known Family History: Positive: Diabetes, Other - cancer Negative: Cardiac Disease, Hypertension - Social History Occupation: Retired Lives: At [facility] [employer] Alcohol Use: None Hx Substance Use: No Substance Use Type: Reports: None Hx Tobacco Use: No Smoking Status (MU): Never Smoked Tobacco Review of Systems Positive: Fatigue. Negative: Fever Positive: Other - Positive chest tightness. Negative: Chest Pain Positive: Shortness Of Breath. Negative: Cough Negative: Abdominal Pain Positive: Edema - Bilateral LE. Negative: Myalgia - Calf pain Positive: Other - Positive sore on the bilateral feet with dressings All Other Systems Reviewed And Are Negative: Yes Physical Exam - Summary Physical Exam Summary: Constitutional: Well-developed, Well-nourished, Alert. (-) Distressed Skin: Warm, Dry HENT: Normocephalic; Atraumatic Eyes: Conjunctiva normal Neck: Musculoskeletal ROM normal neck. (-) JVD, (-) Stridor, (-) Tracheal deviation Cardio: Rhythm regular, rate normal, Heart sounds normal; Intact distal pulses; The pedal pulses are 2+ and symmetric. Radial pulses are 2+ and symmetric. (-) Murmur Pulmonary/Chest wall: Effort normal. (-) Respiratory distress, (-) Rales. Faint upper airway wheezing. Abd: Soft, (-) tenderness, (-) Guarding, (-) Rebound. Mild distention, mild pain on palpation. Musculoskeletal: Bilateral LE edema. Dressing intact on the bilateral heels with no adjacent erythema. Lymph: (-) Cervical adenopathy Neuro: Alert, Oriented x3 Psych: Mood and affect Normal Triage Information Reviewed: Yes Vital Signs Reviewed: Yes Procedures - Sedation Patient Received Moderate/Deep Sedation with Procedure: No Diagnostics - Laboratory Result Diagrams: 05/01/19 08:57 05/01/19 08:57 Lab Statement: Any lab studies that have been ordered have been reviewed, and results considered in the medical decision making process. - Radiology Chest X-ray Radiology Interpretation Completed By: Radiologist Summary of Radiographic Findings: Chest X-ray IMPRESSION: PULMONARY INTERSTITIAL EDEMA WITH RIGHT PLEURAL EFFUSION AND RIGHT BASILAR ATELECTASIS VERSUS CONSOLIDATION. Reviewed by Dr. Juares. - CT Chest/Thorax CTA CT Interpretation Completed By: Radiologist Summary of CT Findings: Chest/Thorax CTA IMPRESSION: 1. BILATERAL PLEURAL EFFUSIONS, RIGHT GREATER THAN LEFT. PERFUSION APPEARS PARTIALLY LOCULATED. THERE IS ASSOCIATED COMPRESSIVE ATELECTASIS OF THE LUNGS BILATERALLY. 2. SMALL AMOUNT OF ASCITES. 3. ATHEROSCLEROSIS. 4. THERE ARE MULTIPLE SCATTERED SMALL PULMONARY PARENCHYMAL NODULES MEASURING UP TO 0.4 CM. THE RECOMMENDATIONS FOR FOLLOWUP AND MANAGEMENT OF INCIDENTALLY DETECTED MULTIPLE PULMONARY NODULES LESS THAN 6 MM IN SIZE, IN A PATIENT WITHOUT A HISTORY OF MALIGNANCY,. INCLUDE NO FOLLOWUP FOR A LOW-RISK PATIENT OR OPTIONAL FOLLOWUP CT IN 12 MONTHS FOR A HIGH RISK PATIENT. 5. NO PULMONARY ARTERIAL FILLING DEFECT TO SUGGEST PULMONARY EMBOLISM. OTHER KNOW RISK FACTORS FOR LUNG CANCER; LOW RISK IS DEFINED MINIMAL OR ABSENT HISTORY OF SMOKING OR OTHER KNOWN RISK FACTORS. Reviewed by Dr. Juares. - EKG 08:50 Cardiac Rate: NL - 73 BPM EKG Rhythm: Sinus Rhythm ST Segment: Normal Ectopy: None Summary of EKG Findings: EKG at 08:50 shows normal sinus rhythm with 73 BPM, no STEMI, ST depressions in V4 and V5. Dr. Juares has reviewed and interpreted this EKG. Course/Dx - Course Course Of Treatment: Patient is an 89 y/o F presenting to the ED via EMS for a chief complaint of shortness of breath that began on 05/01/19. Patient is present with her son. Per EMS, patient lives at [facility] and found to have an oxygen saturation of 75% on room air by staff. On EMS arrival, patient had an oxygen saturation of 89% on room air and placed on 4L of oxygen. Patient has sores on the bilateral feet covered with dressing and she admits bilateral LE edema, fatigue, and chest tightness with deep breaths. Patient denies fever, chest pain, cough, abdominal pain, calf pain, or recent cold-like symptoms. She was asymptomatic on 04/30/19 per patient's son. Patient states she uses a wheelchair and is unable to ambulate. PMHx is significant for HTN and DM, but any cardiac problems or blood clots are denied. PMHx is also significant for a 7 inch tumor in her abdomen, possibly ovarian cancer when found with CT imaging. Any PSHx of stent placement or cardiac surgery is denied. On exam, faint upper airway wheezing, mild distention, mild pain on palpation, bilateral LE edema. Dressing intact on the bilateral heels with no adjacent erythema. In the ED course, patient was given IV fluids, iodixanol 67 ml IV, and Lasix 40 mg IV. EKG at 08:50 shows normal sinus rhythm with 73 BPM, no STEMI, ST depressions in V4 and V5. Laboratory abnormal findings: MPV 6.6, absolute monos 0.9, D-dimer 691, sodium 127, chloride 90, creatinine 0.48, glucose 169, ALT 6, b-natriuretic peptide 512, total protein 5.7, albumin 3.1. Chest X-ray IMPRESSION: PULMONARY INTERSTITIAL EDEMA WITH RIGHT PLEURAL EFFUSION AND RIGHT BASILAR ATELECTASIS VERSUS CONSOLIDATION. Chest/Thorax CTA IMPRESSION: 1. BILATERAL PLEURAL EFFUSIONS, RIGHT GREATER THAN LEFT. PERFUSION APPEARS PARTIALLY LOCULATED. THERE IS ASSOCIATED COMPRESSIVE ATELECTASIS OF THE LUNGS BILATERALLY. 2. SMALL AMOUNT OF ASCITES. 3. ATHEROSCLEROSIS. 4. THERE ARE MULTIPLE SCATTERED SMALL PULMONARY PARENCHYMAL NODULES MEASURING UP TO 0.4 CM. THE RECOMMENDATIONS FOR FOLLOWUP AND MANAGEMENT OF INCIDENTALLY DETECTED MULTIPLE PULMONARY NODULES LESS THAN 6 MM IN SIZE, IN A PATIENT WITHOUT A HISTORY OF MALIGNANCY,. INCLUDE NO FOLLOWUP FOR A LOW-RISK PATIENT OR OPTIONAL FOLLOWUP CT IN 12 MONTHS FOR A HIGH RISK PATIENT. 5. NO PULMONARY ARTERIAL FILLING DEFECT TO SUGGEST PULMONARY EMBOLISM. OTHER KNOW RISK FACTORS FOR LUNG CANCER; LOW RISK IS DEFINED MINIMAL OR ABSENT HISTORY OF SMOKING OR OTHER KNOWN RISK FACTORS. At 11:38, Dr. Smith reviewed the patients case and agrees to admit the patient to [facility] with a diagnosis of pleural effusion and pulmonary edema. Patient will be admitted to [facility] with a diagnosis of pleural effusion and pulmonary edema. - Diagnoses Provider Diagnoses: Pleural effusion, Pulmonary edema - Physician Notifications Discussed Care of Patient With: Ebonie Smith - At 11:38, Dr. Smith reviewed the patients case and agrees to admit the patient to [facility] with a diagnosis of pleural effusion and pulmonary edema. Time Discussed With Above Provider: 11:38 Instructed by Provider To: Admit As Inpatient Discharge ED - Sign-Out/Discharge Documenting (check all that apply): Patient Departure - Admit - Discharge Plan Condition: Stable Disposition: ADMITTED TO [facility] Referrals: Jazmín Bravo MD [Primary Care Provider] - - Attestation Statements Document Initiated by Scribe: Yes Documenting Scribe: Hetal Ram Provider For Whom Scribe is Documenting (Include Credential): Uri Juares DO Scribe Attestation: Hetal Lynne scribed for Uri Juares DO on 05/01/19 at 1136. Status of Scribe Document: Ready
[2019-05-01] MEDS ORDERED: NS 0.9% 1000 ML** 1,000 ML IV SCH (09:00)
[2019-05-01 09:04] LABS: ABS Basophils 0.1 10^3/ul (0-0.2); ABS Eosinophils 0.3 10^3/ul (0-0.6); ABS Lymphocytes 1.8 10^3/ul (1.0-4.8); ABS Monocytes 0.9 10^3/ul (0-0.8); Eosinophil % 4.1 %; Hematocrit 37 % (35-47); Hemoglobin 12.4 g/dL (12.0-16.0); Lymphocyte % 22.2 %; Mean Corpuscular HGB Conc 34 g/dL (31-36); Mean Corpuscular Hemoglobin 29 pg (27-31); Mean Corpuscular Volume 87 fL (80-97); Mean Platelet Volume 6.6 fL (7.4-10.4); Nucleated Red Blood Cells % 0.1; Platelet Count 244 10^3/uL (150-450); Red Blood Count 4.24 10^6 /uL (3.70-4.87); Red Cell Distribution Width 15 % (10-15); White Blood Count 8.1 10^3/uL (3.5-10.8)
[2019-05-01 09:16] LABS: INR 1.08 (0.82-1.09)
[2019-05-01 09:26] LABS: Albumin 3.1 g/dL (3.2-5.2); Albumin/Globulin Ratio 1.2 (1-3); BUN/Creatinine Ratio 16.7 (8-20); Calcium 8.9 mg/dL (8.6-10.3); EGFR Non-African American 122.3 (>60); Globulin 2.6 g/dL (2-4); Total Bilirubin 0.6 mg/dL (0.2-1.0); Total Protein 5.7 g/dL (6.4-8.9)
[2019-05-01 09:28] LABS: Troponin I 0.01 ng/mL (<0.03)
[2019-05-01] MEDS ORDERED: Iodixanol* (CONTRAST) 320 MG/ML 100 ML SDV IV ONE (09:31)
[2019-05-01 09:43] LABS: Influenza A Molecular NEGATIVE (Negative); Influenza B Molecular NEGATIVE (Negative)
[2019-05-01] MEDS ORDERED: Furosemide IV* 10 MG/ML VIAL (40 MG) IV ONE (11:03)
[2019-05-01] MEDS ORDERED: Dextrose 50% VIAL 50 ml IV PUSH PRN (14:07)
[2019-05-01] MEDS: Albuterol/Ipratropium NEB.SOL* Albuterol 2.5 MG/Ipratropium 0.5 MG 3 ML INH SCH ×2 (15:02→19:24)
[2019-05-01] MEDS: Enoxaparin(*) 40 MG/0.4 ML SYR SUBCUT SCH (15:57)
[2019-05-01] MEDS: Insulin LISPRO* 1 UNITS UNIT SUBCUT SCH ×2 (18:17→22:42)
--- NOTE | 2019-05-01 19:37 | HP ---
CC: Dr. Jazmín Bravo; Dr. Ellison, [facility] HISTORY AND PHYSICAL: DATE OF ADMISSION: 05/01/19 PRIMARY CARE PROVIDER: Dr. Jazmín Bravo. REASON FOR THE ADMISSION: Shortness of breath, at the intermediate was hypoxic , was placed on 4 L nasal cannula, subsequently was sent to the hospital. She desaturated into the 70s. HISTORY OF PRESENT ILLNESS: This is an 89-year-old female with recent diagnosis of a large complex pelvic mass suspicious for malignancy which the family and the patient opted for no further workup and rather desired for further hospice care, history of hypertension, nvl-yzqbgyi-pyyshgtpl diabetes, dementia, mild aortic stenosis, mild mitral insufficiency, who is now in the emergency room because of shortness of breath. The patient reports that she has been having shortness of breath since early this morning, but however, did note that she was short of breath last night, but when they checked her at the intermediate, they said that there was nothing wrong at this point. She does not report any fevers, no chills, no palpitations. In the emergency room, the patient was seen and evaluated, blood work and imaging were obtained, the patient was found to have pleural effusion, status post 40 mg IV Lasix and this improved her tachypnea. PAST MEDICAL HISTORY: 1. Diabetes 2. Hypertension 3. Dementia, 4. Aortic stenosis, mitral insufficiency, 4. large pelvic mass measuring about 12.2 x 15.3 x 16.4 cm pelvic mass noted in April 2019 for which family decided that they wanted to do possible hospice care rather than any workup. 5. She was also found to have subarachnoid cyst versus hematoma at the T2-T9 region. PAST SURGICAL HISTORY: Includes: 1. Hysterectomy. 2. Left hip replacement. 3. Carpal tunnel surgery. 4. Appendectomy. HOME MEDICATIONS: Include: 1. Ascorbic acid (vitamin C) 500 mg daily. 2. Percocet 1 tab every 4 hours as needed for moderate pain. 3. Senna tablet 8.6 mg daily as needed. 4. Polyethylene glycol 17 g daily as needed for constipation. 5. Multivitamin 1 tab daily. 6. Glucophage 1000 mg b.i.d. 7. Lisinopril 20 mg daily. 8. Glimepiride 2 mg daily. 9. Cholecalciferol 25 mcg daily. 10. Calcium carbonate 600 mg daily. 11. Atenolol 100 mg b.i.d. ALLERGIES: Include BENZOIN. FAMILY HISTORY: Mother had cancer. Father had dementia and heart failure and at age 96. 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 She is currently residing in a intermediate. The patient is a do not resuscitate with a healthcare proxy being her son, Arnaldo Ibrahim, phone number is [phone]. The other healthcare proxy is daughter, Agnieszka. REVIEW OF SYSTEMS: The patient is having generalized fatigue and malaise; however, no fevers, no chills. HEENT: She complains of no ear issues. She does have occasional trouble hearing with no recent changes. No blurry vision, no diplopia. Respiratory: See HPI. Cardiovascular: No chest pain, no palpitations, no edema. GI: No nausea, no vomiting, no diarrhea, no constipation. : No changes in her urination, no dysuria, no incontinence. Musculoskeletal: Occasional back pain, otherwise no pain at the knees or the hips region. Skin: There are no rashes that she notes of. Neurological: She has no headaches; however, does have generalized weakness. No issues with her speech. PHYSICAL EXAMINATION GENERAL: This is an elderly female, well developed, well nourished, lying in bed, in no acute distress. VITAL SIGNS: Blood pressure of 145/74, heart rate of 72, respiratory rate of 20 , saturation of 99% on 4 L nasal cannula, temperature of 96.4 Fahrenheit. HEENT: Pupils are equal, round, and reactive to light. Atraumatic, normocephalic. NECK: There is no JVD. Neck is supple with range of motion intact. LUNGS: There is mild tachypnea with no use of accessory muscles. Decreased air entry at the right lower and right middle lung leonard. There are scattered crackles. There is also decreased air entry at the left lower lung base. HEART: There is no chest wall tenderness. Regular rate and rhythm. No murmurs. ABDOMEN: Normoactive bowel sounds. Abdomen is soft, nontender, nondistended. EXTREMITIES: There is no lower extremity edema, no calf tenderness. Radial pulses 2+ bilaterally. NEUROLOGIC: She is awake, alert, oriented x3 with no focal neurological deficits. PSYCHIATRIC: She is calm and cooperative. SKIN: There are no rashes or lesions identified. DIAGNOSTIC STUDIES/LAB DATA: WBC 8.1, hemoglobin 12.4, platelets of 244. D- dimer of 691. Chemistry: Sodium of 127, chloride of 90, potassium of 4.0, bicarb of 29, BUN 8, creatinine of 0.48, glucose of 169. BNP of 512. Negative for influenza A and negative for influenza B. Images: Chest CTA shows bilateral pleural effusion, right greater than left, effusion appears partially loculated. There is associated compressive atelectasis of the lungs bilaterally. There is small amount of ascites, atherosclerosis. There are multiple scattered pulmonary nodules measuring up to 0.4 cm. There is no pulmonary arterial defect to suggest a pulmonary embolism. IMPRESSION AND PLAN: 1. Acute respiratory failure with hypoxia. This is secondary to pleural effusion and compressive atelectasis. The patient did receive IV Lasix in the emergency room, after which she had a symptomatic partial relief of her symptoms. I have started her on 40 mg IV Lasix to start again tomorrow. We will get a repeat chest x-ray for further evaluation of her pleural effusion. If she continues to have pleural effusion, we will discuss with IR for therapeutic as well as diagnostic tap. She does have history of a large pelvic mass. This could be possible malignant effusion and further spread of her malignancy. 2. Hyponatremia, acute on chronic hyponatremia. Currently, the patient is fluid overloaded, giving her Lasix, we will monitor the sodium. 3. History of diabetes. Start the patient on insulin sliding scale, restricted carbohydrate diet, hold home dose glimepiride. 4. History of hypertension. Continue home dose atenolol as well as lisinopril. 5. Large pelvic mass. At this point, I discussed the plan with the patient and the son at bedside. They would like no further intervention or diagnosis regarding the mass itself. They would like to consider additional hospice care. 6. Code status: The patient is do not resuscitate, do not intubate. Healthcare proxy is her son, Arnaldo Ibrahim. At this point, they are considering hospice care. [id number]/[facility] #: [id number] MTDD
[2019-05-01] MEDS: Atenolol TAB* 50 MG PO SCH (22:39)
[2019-05-01] MEDS: metFORMIN* 500 MG TAB PO SCH (22:40)
[2019-05-02] MEDS: Albuterol/Ipratropium NEB.SOL* Albuterol 2.5 MG/Ipratropium 0.5 MG 3 ML INH SCH ×2 (01:00→07:09)
[2019-05-02] MEDS: oxyCODONE/Acetamin 5/325 MG* TAB PO PRN ×2 (06:30→19:44)
[2019-05-02 07:55] LABS: ABS Eosinophils 0.4 10^3/ul (0-0.6); ABS Lymphocytes 1.4 10^3/ul (1.0-4.8); ABS Monocytes 0.9 10^3/ul (0-0.8); ABS Neutrophils 5.2 10^3/ul (1.5-7.7); Eosinophil % 5.2 %; Hematocrit 33 % (35-47); Hemoglobin 11.3 g/dL (12.0-16.0); Lymphocyte % 17.5 %; Mean Corpuscular HGB Conc 34 g/dL (31-36); Mean Corpuscular Hemoglobin 30 pg (27-31); Mean Corpuscular Volume 88 fL (80-97); Mean Platelet Volume 6.7 fL (7.4-10.4); Nucleated Red Blood Cells % 0.1; Platelet Count 221 10^3/uL (150-450); Red Blood Count 3.78 10^6 /uL (3.70-4.87); Red Cell Distribution Width 15 % (10-15)
[2019-05-02 08:10] LABS: BUN/Creatinine Ratio 15.6 (8-20); Calcium 8.3 mg/dL (8.6-10.3); EGFR African American 159.5 (>60); EGFR Non-African American 131.8 (>60); Potassium 3.4 mmol/L (3.5-5.0)
[2019-05-02] MEDS: Insulin LISPRO* 1 UNITS UNIT SUBCUT SCH ×4 (08:20→19:44)
[2019-05-02] MEDS ORDERED: Potassium Chlor TAB* 20 MEQ TAB.ER PO ONE (08:20)
[2019-05-02] MEDS ORDERED: Albuterol/Ipratropium NEB.SOL* Albuterol 2.5 MG/Ipratropium 0.5 MG 3 ML INH PRN (08:25)
--- NOTE | 2019-05-02 08:38 | PN ---
Subjective Date of Service: 05/02/19 Interval History: Admitted yesterday for shortness of breath, due to pleural effusions. This morning seen and evaluated, reports that her breathing is still an issue. No cough. Family History: Unchanged from Admission Social History: Unchanged from Admission Past Medical History: Unchanged from Admission Objective Active Medications: Albuterol/Ipratropium (Duoneb (Albuterol 2.5 Mg/Ipratropium 0.5 Mg)) 1 neb INH Q6H PRN PRN Reason: SOB/WHEEZING Ascorbic Acid (Vitamin C Tab*) 500 mg PO DAILY [facility] Atenolol (Tenormin Tab*) 100 mg PO BID [facility] Last Admin: 05/01/19 22:39 Dose: 100 mg Calcium Carbonate (Calcium Carbonate Tab*) 1,250 mg PO DAILY [facility] Cholecalciferol (Vitamin D Tab*) 1,000 units PO DAILY [facility] Dextrose (Dextrose 50% Vial 50 Ml*) 25 ml IV PUSH .FOR FS < 60 - SS PRN PRN Reason: FS < 60 Enoxaparin Sodium (Lovenox(*)) 40 mg SUBCUT Q24H [facility] Last Admin: 05/01/19 15:57 Dose: 40 mg Furosemide (Lasix Iv*) 40 mg IV DAILY [facility] Insulin Human Lispro (Humalog*) 0 units SUBCUT ACHS [facility]; Protocol Last Admin: 05/02/19 08:20 Dose: Not Given Lisinopril (Prinivil Tab*) 20 mg PO DAILY [facility] Metformin HCl (Glucophage*) 1,000 mg PO BID [facility] Last Admin: 05/01/19 22:40 Dose: 1,000 mg Multivitamins/Minerals (Theragran/Minerals Tab*) 1 tab PO DAILY [facility] Oxycodone/Acetaminophen (Percocet 5/325 Tab*) 1 tab PO Q4H PRN PRN Reason: PAIN - MODERATE Last Admin: 05/02/19 06:30 Dose: 1 tab Polyethylene Glycol/Electrolytes (Miralax*) 17 gm PO DAILY [facility] Potassium Chloride (Klor Con Er Tab*) 40 meq PO UC ONCE ONE Stop: 05/02/19 08:21 Senna (Senokot 8.6 Mg Tab*) 1 tab PO DAILY [facility] Vital Signs - 8 hr 05/02/19 05/02/19 05/02/19 03:03 04:09 06:30 Temperature 98.1 F Pulse Rate 82 Respiratory 24 24 Rate Blood Pressure 138/60 (mmHg) O2 Sat by Pulse 94 98 Oximetry 05/02/19 07:11 Temperature Pulse Rate 72 Respiratory 16 Rate Blood Pressure (mmHg) O2 Sat by Pulse 95 Oximetry Oxygen Devices in Use Now: Nasal Cannula Appearance: Elderly female, sitting up on bed, not in distress Eyes: PERRLA Respiratory: - - Decreased air entry at the RLL. scattered crackles, Cardiovascular: NL Sounds; No Murmurs; No JVD, RRR - , No Edema Abdominal: NL Sounds; No Tenderness; No Distention, No Hepatosplenomegaly Neurological: Alert and Oriented x 3 Result Diagrams: 05/02/19 07:33 05/02/19 07:33 Microbiology and Other Data: Microbiology 05/01/19 12:20 Nasal Screen MRSA (PCR) - Final Nasal Mrsa Not Detected Assess/Plan/Problems-Billing Assessment: - Patient Problems (1) Acute respiratory failure with hypoxia Current Visit: Yes Status: Acute Code(s): J96.01 - ACUTE RESPIRATORY FAILURE WITH HYPOXIA SNOMED Code(s): 18944261 Comment: Due to pleural effusion, also has elevated BNP. will get an ECHO continue Diuresis (2) Pleural effusion Current Visit: Yes Status: Acute Code(s): J90 - PLEURAL EFFUSION, NOT ELSEWHERE CLASSIFIED SNOMED Code(s): 97162786 Comment: in setting of a large pelvic mass, there is a concern of malignant pleural effusion. received lasix yesterday, CXR shows effusion is unchanged. would benefit from thoracenetesis- this would be therapeutic as well as diagnostic. will call pulm vs IR tomorrow for this. (3) Abdominal mass Current Visit: No Status: Acute Code(s): R19.00 - INTRA-ABD AND PELVIC SWELLING, MASS AND LUMP, UNSP SITE SNOMED Code(s): 873494872 Comment: large pelvic mass, family and patient has decided to not opt for further diagnostics and treatment regarding the mass interested in hospice, last admission met with palliative care physican as well. will work with bottle caser to see [facility] (4) Hyponatremia Current Visit: No Status: Acute Code(s): E87.1 - HYPO-OSMOLALITY AND HYPONATREMIA SNOMED Code(s): 54693972 Comment: improving hypervolemic hyponatremia giving lasix. also degree of poor oral intake. (5) Diabetes Current Visit: No Status: Chronic Code(s): E11.9 - TYPE 2 DIABETES MELLITUS WITHOUT COMPLICATIONS SNOMED Code(s): 10797336 Comment: hold gimiperide, do insulin sliding scale (6) HTN (hypertension) Current Visit: No Status: Chronic Code(s): I10 - ESSENTIAL (PRIMARY) HYPERTENSION SNOMED Code(s): 69939645 Comment: continue to home dose lisinopril and atenolol given her age would opt to keep her SBP < 160.
[2019-05-02] MEDS: Cholecalciferol TAB* 1000 UNITS PO SCH (08:42)
[2019-05-02] MEDS: Atenolol TAB* 50 MG PO SCH ×2 (08:42→19:44)
[2019-05-02] MEDS: Ascorbic Acid TAB* 500 MG PO SCH (08:42)
[2019-05-02] MEDS: Multivitamins/Minerals TAB PO SCH (08:42)
[2019-05-02] MEDS: Polyethylene Glycol 3350* 17 GM PACKET PO SCH (08:42)
[2019-05-02] MEDS: Lisinopril TAB* 10 MG PO SCH (08:42)
[2019-05-02] MEDS: metFORMIN* 500 MG TAB PO SCH ×2 (08:42→19:44)
[2019-05-02] MEDS: Furosemide IV* 10 MG/ML VIAL (40 MG) IV SCH (08:42)
[2019-05-02] MEDS: Calcium Carbonate TAB* 1250 MG (CALCIUM 500 MG) PO SCH (08:42)
[2019-05-02] MEDS: Senna TAB 8.6 mg* TAB PO SCH (08:42)
[2019-05-02] MEDS: Enoxaparin(*) 40 MG/0.4 ML SYR SUBCUT SCH (16:32)
[2019-05-03 06:35] LABS: BUN/Creatinine Ratio 21.4 (8-20); Calcium 8.6 mg/dL (8.6-10.3); EGFR African American 172.7 (>60); EGFR Non-African American 142.7 (>60); Potassium 3.9 mmol/L (3.5-5.0)
[2019-05-03] MEDS: Lisinopril TAB* 10 MG PO SCH (08:42)
[2019-05-03] MEDS: Polyethylene Glycol 3350* 17 GM PACKET PO SCH (08:42)
[2019-05-03] MEDS: Furosemide IV* 10 MG/ML VIAL (40 MG) IV SCH (08:42)
[2019-05-03] MEDS: Multivitamins/Minerals TAB PO SCH (08:42)
[2019-05-03] MEDS: oxyCODONE/Acetamin 5/325 MG* TAB PO PRN ×2 (08:43→19:51)
[2019-05-03] MEDS: Calcium Carbonate TAB* 1250 MG (CALCIUM 500 MG) PO SCH (08:43)
[2019-05-03] MEDS: Senna TAB 8.6 mg* TAB PO SCH (08:43)
[2019-05-03] MEDS: Atenolol TAB* 50 MG PO SCH ×2 (08:43→19:44)
[2019-05-03] MEDS: Cholecalciferol TAB* 1000 UNITS PO SCH (08:43)
[2019-05-03] MEDS: Ascorbic Acid TAB* 500 MG PO SCH (08:43)
[2019-05-03] MEDS: metFORMIN* 500 MG TAB PO SCH ×2 (08:44→19:44)
[2019-05-03] MEDS: Insulin LISPRO* 1 UNITS UNIT SUBCUT SCH ×4 (08:53→19:44)
--- NOTE | 2019-05-03 11:42 | PN ---
Subjective Date of Service: 05/03/19 Interval History: No acute issues overnight Reports occasional dyspnea, but currently no shortness of breath. Family History: Unchanged from Admission Social History: Unchanged from Admission Past Medical History: Unchanged from Admission Objective Active Medications: Albuterol/Ipratropium (Duoneb (Albuterol 2.5 Mg/Ipratropium 0.5 Mg)) 1 neb INH Q6H PRN PRN Reason: SOB/WHEEZING Ascorbic Acid (Vitamin C Tab*) 500 mg PO DAILY [facility] Last Admin: 05/03/19 08:43 Dose: 500 mg Atenolol (Tenormin Tab*) 100 mg PO BID [facility] Last Admin: 05/03/19 08:43 Dose: 100 mg Calcium Carbonate (Calcium Carbonate Tab*) 1,250 mg PO DAILY [facility] Last Admin: 05/03/19 08:43 Dose: 1,250 mg Cholecalciferol (Vitamin D Tab*) 1,000 units PO DAILY [facility] Last Admin: 05/03/19 08:43 Dose: 1,000 units Dextrose (Dextrose 50% Vial 50 Ml*) 25 ml IV PUSH .FOR FS < 60 - SS PRN PRN Reason: FS < 60 Furosemide (Lasix Iv*) 40 mg IV DAILY [facility] Last Admin: 05/03/19 08:42 Dose: 40 mg Insulin Human Lispro (Humalog*) 0 units SUBCUT [facility]; Protocol Last Admin: 05/03/19 08:53 Dose: 1 units Lisinopril (Prinivil Tab*) 20 mg PO DAILY [facility] Last Admin: 05/03/19 08:42 Dose: 20 mg Metformin HCl (Glucophage*) 1,000 mg PO BID [facility] Last Admin: 05/03/19 08:44 Dose: 1,000 mg Multivitamins/Minerals (Theragran/Minerals Tab*) 1 tab PO DAILY [facility] Last Admin: 05/03/19 08:42 Dose: 1 tab Oxycodone/Acetaminophen (Percocet 5/325 Tab*) 1 tab PO Q4H PRN PRN Reason: PAIN - MODERATE Last Admin: 05/03/19 08:43 Dose: 1 tab Polyethylene Glycol/Electrolytes (Miralax*) 17 gm PO DAILY [facility] Last Admin: 05/03/19 08:42 Dose: 17 gm Senna (Senokot 8.6 Mg Tab*) 1 tab PO DAILY [facility] Last Admin: 05/03/19 08:43 Dose: 1 tab Vital Signs - 8 hr 05/03/19 05/03/19 05/03/19 08:00 08:42 08:43 Temperature 98.2 F Pulse Rate 83 Respiratory 18 23 18 Rate Blood Pressure 174/68 (mmHg) O2 Sat by Pulse 94 Oximetry 05/03/19 11:39 Temperature Pulse Rate Respiratory 18 Rate Blood Pressure (mmHg) O2 Sat by Pulse Oximetry Oxygen Devices in Use Now: Nasal Cannula Appearance: Elderly female, she is lying in her bed, not in distress. Eyes: PERRLA Respiratory: Symmetrical Chest Expansion and Respiratory Effort, - - scattered crackles Abdominal: No Hepatosplenomegaly, - - tender lower abdomen,. Extremities: No Edema Skin: No Rash or Ulcers Neurological: Alert and Oriented x 3 Result Diagrams: 05/02/19 07:33 05/03/19 05:23 Microbiology and Other Data: Microbiology 05/01/19 12:20 Nasal Screen MRSA (PCR) - Final Nasal Mrsa Not Detected Assess/Plan/Problems-Billing Assessment: - Patient Problems (1) Acute respiratory failure with hypoxia Current Visit: Yes Status: Acute Code(s): J96.01 - ACUTE RESPIRATORY FAILURE WITH HYPOXIA SNOMED Code(s): 81709168 Comment: Due to pleural effusion, also has elevated BNP. will get an ECHO continue Diuresis (2) Pleural effusion Current Visit: Yes Status: Acute Code(s): J90 - PLEURAL EFFUSION, NOT ELSEWHERE CLASSIFIED SNOMED Code(s): 71717669 Comment: in setting of a large pelvic mass, there is a concern of malignant pleural effusion. received lasix yesterday, CXR 05/02 shows effusion is unchanged. would benefit from thoracenetesis- this would be therapeutic as well as diagnostic. ordered for US guided thoracentesis today. (3) Abdominal mass Current Visit: No Status: Acute Code(s): R19.00 - INTRA-ABD AND PELVIC SWELLING, MASS AND LUMP, UNSP SITE SNOMED Code(s): 731939507 Comment: large pelvic mass, family and patient has decided to not opt for further diagnostics and treatment regarding the mass interested in hospice, last admission met with palliative care physican as well. will work with onsite case manager to see if [facility] (4) Hyponatremia Current Visit: No Status: Acute Code(s): E87.1 - HYPO-OSMOLALITY AND HYPONATREMIA SNOMED Code(s): 03150539 Comment: improved since admission hypervolemic hyponatremia giving lasix. also degree of poor oral intake. (5) Diabetes Current Visit: No Status: Chronic Code(s): E11.9 - TYPE 2 DIABETES MELLITUS WITHOUT COMPLICATIONS SNOMED Code(s): 30355509 Comment: hold gimiperide, do insulin sliding scale (6) HTN (hypertension) Current Visit: No Status: Chronic Code(s): I10 - ESSENTIAL (PRIMARY) HYPERTENSION SNOMED Code(s): 46820274 Comment: continue to home dose lisinopril and atenolol given her age would opt to keep her SBP < 160. BP was high this morning, but this was before her AM home medications. Status and Disposition: will work with CM regarding hospicare
--- NOTE | 2019-05-03 12:41 | ECHO ---
*[facility]* [place] [address] Fax #: [phone] Transthoracic Echocardiogram Patient: Haley Reddy : 1930 Study Date: 05/03/2019 Age: 89 Gender: F HR: 86 bpm Height: 65 in /165.1 cm BSA: 1.8 m^2 Weight: 159.7 lb /72.6 kg BMI: 26.6 kg/m^2 *[place] Clerk: * Jessica Schmidt RDCS RN *Referring Physician: * Peggy Avendano *Reading Physician: * Mike Strickland MD Indications: SOB. History: Bilateral pleural effusions. Aortic stenosis. Mitral regurgitation. Large pelvic mass. Dementia. Risk factors: Hypertension. Diabetes mellitus. Conclusions Summary: - Left ventricle: The cavity size is mildly reduced. Wall thickness is moderately increased. Systolic function is hyperdynamic. The estimated ejection fraction is 65-70%. Wall motion is normal; there are no regional wall motion abnormalities. - Left atrium: The atrium is moderately to severely dilated. - Mitral valve: There is mild to moderate regurgitation. - Aortic valve: The findings are consistent with mild to moderate stenosis. The peak systolic velocity is 2.7 m/sec. The mean systolic gradient is 16.0 mm Hg. The peak systolic gradient is 29.2 mm Hg. The LVOT to aortic valve VTI ratio is 0.45. The valve area by the velocity-time integral method is 1.41 cm^2. The ratio of LVOT to aortic valve peak velocity is 0.47. The valve area by the peak velocity method is 1.49 cm^2. - Tricuspid valve: There is mild-moderate regurgitation. - Pericardium, extracardiac: Small pericardial effusion without hemodynamic compromise. A pericardial effusion is seen adjacent to the right atrium in the A4C view measuring 0.95 cm. There are mobile echodensities within the pericardial space. There is invagination of the right atrial free wall. The mitral E peak respiratory variation is 2% and the left ventricular outflow tract velocity respiratory variation is 6%. The effusion does not appear to be hemodynamically significant. - Pulmonary arteries: Systolic pressure is severely increased, estimated to be 78 mm Hg. - C/t 05/21/2016, aortic stenosis was mild then. Pericardial effusion is new. PASP was 48 mmHg then. Study data: Transthoracic echocardiogram. Procedure: Transthoracic echocardiography was performed. Image quality was fair. Complete 2D, spectral Doppler, and color flow Doppler. Location: Bedside. Patient status: Inpatient. Patient room number: 408. Rhythm: Normal sinus rhythm with PAC's. Findings Left ventricle: The cavity size is mildly reduced. Wall thickness is moderately increased. Systolic function is hyperdynamic. The estimated ejection fraction is 65-70%. Wall motion is normal; there are no regional wall motion abnormalities. Features are consistent with a pseudonormal left ventricular filling pattern, with concomitant abnormal relaxation and increased filling pressure (grade 2 diastolic dysfunction). Right ventricle: The cavity size is normal. Systolic function is normal. Left atrium: The atrium is moderately to severely dilated. Right atrium: The atrium is normal in size. Mitral valve: The posterior mitral valve annulus appears moderately calcified. The leaflets are mildly thickened. There is no evidence of stenosis. There is mild to moderate regurgitation. Aortic valve: The annulus is calcified. The valve is trileaflet. The leaflets are mild-moderately thickened with decreased excursion. The findings are consistent with mild to moderate stenosis. There is no significant regurgitation. Tricuspid valve: The valve is structurally normal. There is no evidence of stenosis. There is mild-moderate regurgitation. Pulmonic valve: Not well visualized. There is no significant regurgitation. Aorta: Aortic root: The aortic root is not dilated. Ascending aorta: The ascending aorta is not visualized. Aortic arch: The aortic arch is not visualized. Pericardium: A pericardial effusion is seen adjacent to the right atrium in the A4C view measuring 0.95 cm. There are mobile echodensities within the pericardial space. There is invagination of the right atrial free wall. The mitral E peak respiratory variation is 2% and the left ventricular outflow tract velocity respiratory variation is 6%. The effusion does not appear to be hemodynamically significant. Pulmonary arteries: Not well visualized. Systolic pressure is severely increased, estimated to be 78 mm Hg. Systemic veins: Inferior vena cava: Not well visualized. Measurements Left ventricle Value Ref Right atrium continued Value Ref STUART, LAX (L) 3.6 cm 3.8 - SI dim, ES, A4C 4.5 cm 3.4 - 5.3 5.2 Estimated RAP 8 mm Hg --------- ESD, LAX 2.6 cm 2.2 - 3.5 Aortic valve Value Ref FS, LAX 30 % 27 - 45 Julian diam, ED 1.9 cm --------- PW, ED (H) 1.4 cm 0.6 - Julian diam/bsa, ED 1.0 cm/m^2 --------- 0.9 Peak v, S 2.7 m/sec --------- IVS/PW, ED 0.99 -------- VTI, S 59.7 cm --------- E', lat julian, TDI (L) 8.4 cm/sec >=10.0 Mean grad, S 16.0 mm Hg - -------- E/e', lat ujlian, TDI 20 -------- Peak grad, S 29.2 mm Hg ---- ----- E', med julian, TDI (L) 6.0 cm/sec >=7.0 LVOT/AV, VTI ratio 0.45 - -------- E/e', med julian, TDI 27 -------- ISABEL, VTI 1.41 cm^2 ---- ----- E', avg, TDI 7.2 cm/sec -------- ISABEL, Vmax 1.49 cm^2 ---- ----- E/e', avg, TDI (H) 23 <=14 Mitral valve Value Ref LVOT Value Ref Peak E 1.64 m/sec --------- Diam, S 2.00 cm -------- Peak A 1.14 m/sec --------- Area 3.1 cm^2 -------- Decel time 162 ms --------- Peak oliver, S 1.28 m/sec -------- Peak grad, D 10.8 mm Hg --------- VTI, S 26.8 cm -------- Peak E/A ratio 1.4 --------- Peak grad, S 7 mm Hg -------- Mean grad, S 3 mm Hg -------- Pulmonic valve Value Ref SV 84 ml -------- Peak v, S 0.71 m/sec --------- SV/bsa 47 ml/m^2 -------- Peak grad, S 2.0 mm Hg --------- Ventricular septum Value Ref Tricuspid valve Value Ref IVS, ED, LAX (H) 1.6 cm 0.6 - Peak RV-RA grad, S 70 mm Hg --------- 0.9 Max TR oliver 4.18 m/sec --------- Right ventricle Value Ref Aortic root Value Ref STUART, LAX 3.0 cm -------- Root diam 2.7 cm <4.0 STUART minor ax, A4C 2.9 cm 1.9 - mid 3.5 Ascending aorta Value Ref Pressure, S 78 mm Hg -------- AAo AP diam, S 3.9 cm --------- Left atrium Value Ref Pulmonary artery Value Ref ML dim, A4C 4.8 cm -------- Pressure, S 78.0 mm Hg --------- SI dim, A4C 6.0 cm -------- Vol/bsa, ES, 1-p (H) 51 ml/m^2 11 - 40 A4C Vol/bsa, ES, A/L (H) 50 ml/m^2 16 - 34 Right atrium Value Ref ML dim, ES, A4C 3.8 cm 2.6 - 4.4 Legend: (L) and (H) values outside specified reference range. Prepared and electronically signed by Mike Strickland MD 05/03/2019 12:41
--- NOTE | 2019-05-03 13:48 | PN ---
Progress Note - Progress Note Date of Service: 05/03/19 - Romana Note: Spoke with Arnaldo [phone] about options at discharge. Pt is no longer eligible for [facility]. [facility] are [facility] if no beds they would like a referral to Diya Jain with hospice because it's closer if no bed will go back to [facility] with hospice.
[2019-05-03 17:11] LABS: Body Fluid Source Pleural Fluid
[2019-05-03 18:10] LABS: Body Fluid Mono 55 %
[2019-05-04] MEDS: Insulin LISPRO* 1 UNITS UNIT SUBCUT SCH ×4 (07:56→18:12)
[2019-05-04] MEDS ORDERED: Simethicone TAB* 80 MG TAB.CHEW PO ONE (09:15)
--- NOTE | 2019-05-04 09:19 | PN ---
Subjective Date of Service: 05/04/19 Interval History: status post thoracentesis of Right pleural effusion, CXR post procedure showed no pneumothorax. Patient does not know if the thoracenetesis made any changes to her breathing. SHe reports no trouble with breathing, no chest pain, Is having bloating sensation, and feels "gasey" Family History: Unchanged from Admission Social History: Unchanged from Admission Past Medical History: Unchanged from Admission Objective Active Medications: Albuterol/Ipratropium (Duoneb (Albuterol 2.5 Mg/Ipratropium 0.5 Mg)) 1 neb INH Q6H PRN PRN Reason: SOB/WHEEZING Ascorbic Acid (Vitamin C Tab*) 500 mg PO DAILY [facility] Last Admin: 05/03/19 08:43 Dose: 500 mg Atenolol (Tenormin Tab*) 100 mg PO BID [facility] Last Admin: 05/03/19 19:44 Dose: 100 mg Calcium Carbonate (Calcium Carbonate Tab*) 1,250 mg PO DAILY [facility] Last Admin: 05/03/19 08:43 Dose: 1,250 mg Cholecalciferol (Vitamin D Tab*) 1,000 units PO DAILY [facility] Last Admin: 05/03/19 08:43 Dose: 1,000 units Dextrose (Dextrose 50% Vial 50 Ml*) 25 ml IV PUSH .FOR FS < 60 - SS PRN PRN Reason: FS < 60 Furosemide (Lasix Iv*) 40 mg IV DAILY [facility] Last Admin: 05/03/19 08:42 Dose: 40 mg Insulin Human Lispro (Humalog*) 0 units SUBCUT [facility]; Protocol Last Admin: 05/04/19 07:56 Dose: Not Given Lisinopril (Prinivil Tab*) 20 mg PO DAILY [facility] Last Admin: 05/03/19 08:42 Dose: 20 mg Metformin HCl (Glucophage*) 1,000 mg PO BID [facility] Last Admin: 05/03/19 19:44 Dose: 1,000 mg Multivitamins/Minerals (Theragran/Minerals Tab*) 1 tab PO DAILY [facility] Last Admin: 05/03/19 08:42 Dose: 1 tab Oxycodone/Acetaminophen (Percocet 5/325 Tab*) 1 tab PO Q4H PRN PRN Reason: PAIN - MODERATE Last Admin: 05/03/19 19:51 Dose: 1 tab Polyethylene Glycol/Electrolytes (Miralax*) 17 gm PO DAILY [facility] Last Admin: 05/03/19 08:42 Dose: 17 gm Senna (Senokot 8.6 Mg Tab*) 1 tab PO DAILY [facility] Last Admin: 05/03/19 08:43 Dose: 1 tab Vital Signs - 8 hr 05/04/19 03:15 Temperature 98.2 F Pulse Rate 74 Respiratory 18 Rate Blood Pressure 129/58 (mmHg) O2 Sat by Pulse 98 Oximetry Oxygen Devices in Use Now: Nasal Cannula Appearance: She is lying, comfortably, not in distress Eyes: PERRLA Ears/Nose/Mouth/Throat: Mucous Membranes Moist Neck: - - No JVD Respiratory: Symmetrical Chest Expansion and Respiratory Effort, - - mild scattered crackles, Cardiovascular: NL Sounds; No Murmurs; No JVD, RRR Abdominal: No Hepatosplenomegaly, - - mildly tender lower abdomen. Extremities: No Edema Skin: No Rash or Ulcers Neurological: Alert and Oriented x 3 Result Diagrams: 05/02/19 07:33 05/03/19 05:23 Microbiology and Other Data: Microbiology 05/01/19 12:20 Nasal Screen MRSA (PCR) - Final Nasal Mrsa Not Detected Assess/Plan/Problems-Billing Assessment: - Patient Problems (1) Acute respiratory failure with hypoxia Current Visit: Yes Status: Acute Code(s): J96.01 - ACUTE RESPIRATORY FAILURE WITH HYPOXIA SNOMED Code(s): 50444433 Comment: Due to pleural effusion, also has elevated BNP. will get an ECHO continue Diuresis (2) Pleural effusion Current Visit: Yes Status: Acute Code(s): J90 - PLEURAL EFFUSION, NOT ELSEWHERE CLASSIFIED SNOMED Code(s): 86132008 Comment: in setting of a large pelvic mass, there is a concern of malignant pleural effusion. received lasix yesterday, CXR 05/02 shows effusion is unchanged. would benefit from thoracenetesis- this would be therapeutic as well as diagnostic. status post thoracentesis 05/03. 850cc of sanguinious fluid drained, now awaiting pathology. (3) Abdominal mass Current Visit: No Status: Acute Code(s): R19.00 - INTRA-ABD AND PELVIC SWELLING, MASS AND LUMP, UNSP SITE SNOMED Code(s): 602637498 Comment: large pelvic mass, family and patient has decided to not opt for further diagnostics and treatment regarding the mass interested in hospice, last admission met with palliative care physican as well. will work with pillowcase folder to see if she would be able to go hosp[facility]are residence (4) Hyponatremia Current Visit: No Status: Acute Code(s): E87.1 - HYPO-OSMOLALITY AND HYPONATREMIA SNOMED Code(s): 67091541 Comment: improved since admission hypervolemic hyponatremia giving lasix. also degree of poor oral intake. (5) Diabetes Current Visit: No Status: Chronic Code(s): E11.9 - TYPE 2 DIABETES MELLITUS WITHOUT COMPLICATIONS SNOMED Code(s): 37954850 Comment: hold gimiperide, continue metformin. do insulin sliding scale (6) HTN (hypertension) Current Visit: No Status: Chronic Code(s): I10 - ESSENTIAL (PRIMARY) HYPERTENSION SNOMED Code(s): 65489911 Comment: continue to home dose lisinopril and atenolol given her age would opt to keep her SBP < 160. BP was high this morning, but this was before her AM home medications. Status and Disposition: will work with CM regarding hospicare, or placement with SNF with hospice sign on.
[2019-05-04] MEDS: Furosemide TAB* 20 MG PO SCH (09:29)
[2019-05-04] MEDS: Senna TAB 8.6 mg* TAB PO SCH (09:29)
[2019-05-04] MEDS: Lisinopril TAB* 10 MG PO SCH (09:29)
[2019-05-04] MEDS: oxyCODONE/Acetamin 5/325 MG* TAB PO PRN (09:30)
[2019-05-04] MEDS: Atenolol TAB* 50 MG PO SCH ×2 (09:30→20:52)
[2019-05-04] MEDS: Polyethylene Glycol 3350* 17 GM PACKET PO SCH (09:30)
[2019-05-04] MEDS: metFORMIN* 500 MG TAB PO SCH ×2 (09:30→20:52)
[2019-05-04] MEDS: Multivitamins/Minerals TAB PO SCH (09:30)
[2019-05-04] MEDS: Calcium Carbonate TAB* 1250 MG (CALCIUM 500 MG) PO SCH (09:30)
[2019-05-04] MEDS: Ascorbic Acid TAB* 500 MG PO SCH (09:30)
[2019-05-04] MEDS: Cholecalciferol TAB* 1000 UNITS PO SCH (09:30)
[2019-05-04] MEDS: Furosemide IV* 10 MG/ML VIAL (40 MG) IV SCH (10:04)
[2019-05-05] MEDS: Insulin LISPRO* 1 UNITS UNIT SUBCUT SCH ×3 (08:21→17:29)
[2019-05-05] MEDS: Senna TAB 8.6 mg* TAB PO SCH (08:36)
[2019-05-05] MEDS: Multivitamins/Minerals TAB PO SCH (08:36)
[2019-05-05] MEDS: Polyethylene Glycol 3350* 17 GM PACKET PO SCH (08:36)
[2019-05-05] MEDS: Furosemide TAB* 20 MG PO SCH (08:36)
[2019-05-05] MEDS: Atenolol TAB* 50 MG PO SCH ×2 (08:37→21:22)
[2019-05-05] MEDS: Lisinopril TAB* 10 MG PO SCH (08:38)
[2019-05-05] MEDS: metFORMIN* 500 MG TAB PO SCH ×2 (08:38→21:22)
[2019-05-05] MEDS: Cholecalciferol TAB* 1000 UNITS PO SCH (08:39)
[2019-05-05] MEDS: Calcium Carbonate TAB* 1250 MG (CALCIUM 500 MG) PO SCH (08:39)
[2019-05-05] MEDS: Ascorbic Acid TAB* 500 MG PO SCH (08:39)
--- NOTE | 2019-05-05 11:46 | PN ---
Subjective Date of Service: 05/05/19 Interval History: No acute issues overnight No chest pain, states she cannot tell how her breathing is, nurse is weaning off the oxygen, currently on room air. had a BM early this morning. Family History: Unchanged from Admission Social History: Unchanged from Admission Past Medical History: Unchanged from Admission Objective Active Medications: Albuterol/Ipratropium (Duoneb (Albuterol 2.5 Mg/Ipratropium 0.5 Mg)) 1 neb INH Q6H PRN PRN Reason: SOB/WHEEZING Ascorbic Acid (Vitamin C Tab*) 500 mg PO DAILY [facility] Last Admin: 05/05/19 08:39 Dose: 500 mg Atenolol (Tenormin Tab*) 100 mg PO BID [facility] Last Admin: 05/05/19 08:37 Dose: 100 mg Calcium Carbonate (Calcium Carbonate Tab*) 1,250 mg PO DAILY [facility] Last Admin: 05/05/19 08:39 Dose: 1,250 mg Cholecalciferol (Vitamin D Tab*) 1,000 units PO DAILY [facility] Last Admin: 05/05/19 08:39 Dose: 1,000 units Dextrose (Dextrose 50% Vial 50 Ml*) 25 ml IV PUSH .FOR FS < 60 - SS PRN PRN Reason: FS < 60 Insulin Human Lispro (Humalog*) 0 units SUBCUT [facility]; Protocol Last Admin: 05/05/19 08:21 Dose: 1 unit Lisinopril (Prinivil Tab*) 20 mg PO DAILY [facility] Last Admin: 05/05/19 08:38 Dose: 20 mg Metformin HCl (Glucophage*) 1,000 mg PO BID [facility] Last Admin: 05/05/19 08:38 Dose: 1,000 mg Multivitamins/Minerals (Theragran/Minerals Tab*) 1 tab PO DAILY [facility] Last Admin: 05/05/19 08:36 Dose: 1 tab Oxycodone/Acetaminophen (Percocet 5/325 Tab*) 1 tab PO Q4H PRN PRN Reason: PAIN - MODERATE Last Admin: 05/04/19 09:30 Dose: 1 tab Polyethylene Glycol/Electrolytes (Miralax*) 17 gm PO DAILY [facility] Last Admin: 05/05/19 08:36 Dose: 17 gm Senna (Senokot 8.6 Mg Tab*) 1 tab PO DAILY [facility] Last Admin: 05/05/19 08:36 Dose: 1 tab Vital Signs - 8 hr 05/05/19 05/05/19 05/05/19 07:15 07:36 08:00 Temperature 99.0 F 97.5 F Pulse Rate 72 Respiratory 20 20 Rate Blood Pressure 146/61 (mmHg) O2 Sat by Pulse 97 Oximetry 05/05/19 11:03 Temperature 98.3 F Pulse Rate 72 Respiratory 20 Rate Blood Pressure 138/52 (mmHg) O2 Sat by Pulse 99 Oximetry Oxygen Devices in Use Now: Nasal Cannula Appearance: Elderly female, lying in bed, not in distress Ears/Nose/Mouth/Throat: - - oral mucosa is dry Respiratory: Symmetrical Chest Expansion and Respiratory Effort, Clear to Auscultation Cardiovascular: NL Sounds; No Murmurs; No JVD, RRR, No Edema Abdominal: NL Sounds; No Tenderness; No Distention, No Hepatosplenomegaly Result Diagrams: 05/02/19 07:33 05/03/19 05:23 Microbiology and Other Data: Microbiology 05/01/19 12:20 Nasal Screen MRSA (PCR) - Final Nasal Mrsa Not Detected Assess/Plan/Problems-Billing Assessment: - Patient Problems (1) Acute respiratory failure with hypoxia Current Visit: Yes Status: Acute Code(s): J96.01 - ACUTE RESPIRATORY FAILURE WITH HYPOXIA SNOMED Code(s): 69535083 Comment: Due to pleural effusion, also has elevated BNP. will get an ECHO resolved. (2) Pleural effusion Current Visit: Yes Status: Acute Code(s): J90 - PLEURAL EFFUSION, NOT ELSEWHERE CLASSIFIED SNOMED Code(s): 21064407 Comment: in setting of a large pelvic mass, there is a concern of malignant pleural effusion. received lasix, CXR 05/02 shows effusion is unchanged. status post thoracentesis 05/03. 850cc of sanguinious fluid drained. PATHOLOGY shows no malignant cells. lungs clear today, stop lasix today. (3) Abdominal mass Current Visit: No Status: Acute Code(s): R19.00 - INTRA-ABD AND PELVIC SWELLING, MASS AND LUMP, UNSP SITE SNOMED Code(s): 541764047 Comment: large pelvic mass, family and patient has decided to not opt for further diagnostics and treatment regarding the mass interested in hospice, last admission met with palliative care physican as well. will work with telehealth case manager [facility] (4) Hyponatremia Current Visit: No Status: Acute Code(s): E87.1 - HYPO-OSMOLALITY AND HYPONATREMIA SNOMED Code(s): 55463338 Comment: improved since admission hypervolemic hyponatremia received lasix, now seems euvolemic to slightly dry, stopping lasix now, repeat BMP tomorrow. (5) Diabetes Current Visit: No Status: Chronic Code(s): E11.9 - TYPE 2 DIABETES MELLITUS WITHOUT COMPLICATIONS SNOMED Code(s): 59546596 Comment: hold gimiperide, continue metformin. do insulin sliding scale (6) HTN (hypertension) Current Visit: No Status: Chronic Code(s): I10 - ESSENTIAL (PRIMARY) HYPERTENSION SNOMED Code(s): 31814961 Comment: continue on her home dose of lisinopril and atenolol given her age would opt to keep her SBP < 160. BP was high this morning, but this was before her AM home medications. Status and Disposition: will work with CM regarding hospicare, or placement with SNF with hospice sign on. thus far it seems hospicare residence does not have availability.
[2019-05-05 14:45] LABS: Lactate Dehydrogenase, BF 136 U/L
[2019-05-05 17:00] LABS: Fluid Type, Protein, Total PLEURAL
[2019-05-05] MEDS: oxyCODONE/Acetamin 5/325 MG* TAB PO PRN (23:49)
[2019-05-06 07:09] LABS: Calcium 8.9 mg/dL (8.6-10.3); Potassium 4.2 mmol/L (3.5-5.0)
[2019-05-06 07:14] LABS: BUN/Creatinine Ratio 23.1 (8-20); EGFR Non-African American 111.5 (>60)
[2019-05-06] MEDS: metFORMIN* 500 MG TAB PO SCH ×2 (07:49→20:27)
[2019-05-06] MEDS: Atenolol TAB* 50 MG PO SCH ×2 (07:50→20:27)
[2019-05-06] MEDS: Cholecalciferol TAB* 1000 UNITS PO SCH (07:50)
[2019-05-06] MEDS: Lisinopril TAB* 10 MG PO SCH (07:51)
[2019-05-06] MEDS: Senna TAB 8.6 mg* TAB PO SCH (07:53)
[2019-05-06] MEDS: Multivitamins/Minerals TAB PO SCH (07:53)
[2019-05-06] MEDS: Calcium Carbonate TAB* 1250 MG (CALCIUM 500 MG) PO SCH (07:54)
[2019-05-06] MEDS: Insulin LISPRO* 1 UNITS UNIT SUBCUT SCH ×2 (07:54→12:11)
[2019-05-06] MEDS: Polyethylene Glycol 3350* 17 GM PACKET PO SCH (07:54)
[2019-05-06] MEDS: Ascorbic Acid TAB* 500 MG PO SCH (07:54)
--- NOTE | 2019-05-06 15:21 | PN ---
Subjective Date of Service: 05/06/19 Interval History: Reports some improvement in breathing.Still needing 02 Family History: Unchanged from Admission Social History: Unchanged from Admission Past Medical History: Unchanged from Admission Objective Active Medications: Albuterol/Ipratropium (Duoneb (Albuterol 2.5 Mg/Ipratropium 0.5 Mg)) 1 neb INH Q6H PRN PRN Reason: SOB/WHEEZING Ascorbic Acid (Vitamin C Tab*) 500 mg PO DAILY [facility] Last Admin: 05/06/19 07:54 Dose: 500 mg Atenolol (Tenormin Tab*) 100 mg PO BID [facility] Last Admin: 05/06/19 07:50 Dose: 100 mg Calcium Carbonate (Calcium Carbonate Tab*) 1,250 mg PO DAILY [facility] Last Admin: 05/06/19 07:54 Dose: 1,250 mg Cholecalciferol (Vitamin D Tab*) 1,000 units PO DAILY [facility] Last Admin: 05/06/19 07:50 Dose: 1,000 units Dextrose (Dextrose 50% Vial 50 Ml*) 25 ml IV PUSH .FOR FS < 60 - SS PRN PRN Reason: FS < 60 Furosemide (Lasix Tab*) 20 mg PO DAILY [facility] Insulin Human Lispro (Humalog*) 0 units SUBCUT [facility]; Protocol Last Admin: 05/06/19 12:11 Dose: 1 unit Lisinopril (Prinivil Tab*) 20 mg PO DAILY [facility] Last Admin: 05/06/19 07:51 Dose: 20 mg Metformin HCl (Glucophage*) 1,000 mg PO BID [facility] Last Admin: 05/06/19 07:49 Dose: 1,000 mg Multivitamins/Minerals (Theragran/Minerals Tab*) 1 tab PO DAILY [facility] Last Admin: 05/06/19 07:53 Dose: 1 tab Oxycodone/Acetaminophen (Percocet 5/325 Tab*) 1 tab PO Q4H PRN PRN Reason: PAIN - MODERATE Last Admin: 05/05/19 23:49 Dose: 1 tab Polyethylene Glycol/Electrolytes (Miralax*) 17 gm PO DAILY [facility] Last Admin: 05/06/19 07:54 Dose: 17 gm Senna (Senokot 8.6 Mg Tab*) 1 tab PO DAILY [facility] Last Admin: 05/06/19 07:53 Dose: 1 tab Vital Signs - 8 hr 05/06/19 05/06/19 05/06/19 07:34 08:00 10:22 Temperature 97.9 F Pulse Rate 74 90 Respiratory 17 17 18 Rate Blood Pressure 140/48 (mmHg) O2 Sat by Pulse 96 92 Oximetry 05/06/19 11:04 Temperature 98.1 F Pulse Rate 76 Respiratory 19 Rate Blood Pressure 135/54 (mmHg) O2 Sat by Pulse 97 Oximetry Oxygen Devices in Use Now: Nasal Cannula Eyes: No Scleral Icterus Ears/Nose/Mouth/Throat: NL Teeth, Lips, Gums Neck: NL Appearance and Movements; NL JVP Respiratory: Symmetrical Chest Expansion and Respiratory Effort, Clear to Auscultation Cardiovascular: NL Sounds; No Murmurs; No JVD Abdominal: NL Sounds; No Tenderness; No Distention Neurological: Alert and Oriented x 3 Result Diagrams: 05/02/19 07:33 05/06/19 05:14 Microbiology and Other Data: Microbiology 05/01/19 12:20 Nasal Screen MRSA (PCR) - Final Nasal Mrsa Not Detected Assess/Plan/Problems-Billing Assessment: - Patient Problems (1) Acute respiratory failure with hypoxia Current Visit: Yes Status: Acute Code(s): J96.01 - ACUTE RESPIRATORY FAILURE WITH HYPOXIA SNOMED Code(s): 14287906 Comment: Due to pleural effusion, also has elevated BNP. will get an ECHO improved (2) Pleural effusion Current Visit: Yes Status: Acute Code(s): J90 - PLEURAL EFFUSION, NOT ELSEWHERE CLASSIFIED SNOMED Code(s): 15927736 Comment: in setting of a large pelvic mass, there is a concern of malignant pleural effusion. received lasix, CXR 05/02 shows effusion was unchanged. status post thoracentesis 05/03. 850cc of sanguinious fluid drained. PATHOLOGY shows no malignant cells. lungs clear today, lasix was held will repeat CXR in am Can reaccumulate Will start on low dose lasix 20 mg po and reevaluate (3) Abdominal mass Current Visit: No Status: Acute Code(s): R19.00 - INTRA-ABD AND PELVIC SWELLING, MASS AND LUMP, UNSP SITE SNOMED Code(s): 389345962 Comment: large pelvic mass, family and patient has decided to not opt for further diagnostics and treatment regarding the mass interested in hospice, last admission met with palliative care physican as well. will request palliative care eval (4) Hyponatremia Current Visit: No Status: Acute Code(s): E87.1 - HYPO-OSMOLALITY AND HYPONATREMIA SNOMED Code(s): 88062688 Comment: improving if still low, can check urine serum osm and uric acid if plan to continue conservative med management (5) Diabetes Current Visit: No Status: Chronic Code(s): E11.9 - TYPE 2 DIABETES MELLITUS WITHOUT COMPLICATIONS SNOMED Code(s): 12619257 Comment: restart gimiperide, continue metformin. on insulin sliding scale hba1c in am stop ISS for comfort (6) HTN (hypertension) Current Visit: No Status: Chronic Code(s): I10 - ESSENTIAL (PRIMARY) HYPERTENSION SNOMED Code(s): 25386374 Comment: continue on her home dose of lisinopril and atenolol given her age would opt to keep her SBP < 160. BP was high this morning, but this was before her AM home medications. Status and Disposition: will work with CM regarding hospicare, or placement with SNF with hospice sign on. thus far it seems hospicare residence does not have availability.
[2019-05-06] MEDS: oxyCODONE/Acetamin 5/325 MG* TAB PO PRN (20:28)
[2019-05-07 06:24] LABS: ABS Basophils 0.1 10^3/ul (0-0.2); ABS Eosinophils 0.4 10^3/ul (0-0.6); ABS Lymphocytes 1.9 10^3/ul (1.0-4.8); ABS Monocytes 0.9 10^3/ul (0-0.8); ABS Neutrophils 3.7 10^3/ul (1.5-7.7); Eosinophil % 5.7 %; Hematocrit 31 % (35-47); Hemoglobin 10.7 g/dL (12.0-16.0); Lymphocyte % 26.7 %; Mean Corpuscular HGB Conc 34 g/dL (31-36); Mean Corpuscular Hemoglobin 30 pg (27-31); Mean Corpuscular Volume 87 fL (80-97); Mean Platelet Volume 6.8 fL (7.4-10.4); Platelet Count 207 10^3/uL (150-450); Red Blood Count 3.61 10^6 /uL (3.70-4.87); Red Cell Distribution Width 15 % (10-15); White Blood Count 6.9 10^3/uL (3.5-10.8)
[2019-05-07 06:40] LABS: BUN/Creatinine Ratio 27.5 (8-20); Calcium 8.9 mg/dL (8.6-10.3); EGFR Non-African American 114.1 (>60); Potassium 4.3 mmol/L (3.5-5.0)
[2019-05-07] MEDS: Polyethylene Glycol 3350* 17 GM PACKET PO SCH (10:23)
[2019-05-07] MEDS: Lisinopril TAB* 10 MG PO SCH (10:24)
[2019-05-07] MEDS: metFORMIN* 500 MG TAB PO SCH ×2 (10:24→19:55)
[2019-05-07] MEDS: Cholecalciferol TAB* 1000 UNITS PO SCH (10:24)
[2019-05-07] MEDS: Furosemide TAB* 20 MG PO SCH (10:24)
[2019-05-07] MEDS: Senna TAB 8.6 mg* TAB PO SCH (10:25)
[2019-05-07] MEDS: Atenolol TAB* 50 MG PO SCH ×2 (10:25→19:55)
[2019-05-07] MEDS: Multivitamins/Minerals TAB PO SCH (10:25)
[2019-05-07] MEDS: Ascorbic Acid TAB* 500 MG PO SCH (10:25)
[2019-05-07] MEDS: Calcium Carbonate TAB* 1250 MG (CALCIUM 500 MG) PO SCH (10:25)
[2019-05-07] MEDS: CMCS: Glimepiride (NF) 2 MG TAB PO SCH (10:25)
--- NOTE | 2019-05-07 12:44 | CONSULT ---
Palliative / Hospice Consult Ordering Provider: Chani Deluna - PCP-Lawrence Referal Reason: Aftercare/PEG & senna/oxy - Subjective Code Status: DNR Advance Directives Location: With Family MOLST Part A Completed: Yes - on chart MOLST Part E Completed:: Yes - on chart - History or Present Illness History or Present Illness: 89yo female with pelvic mass currently at [facility] for rehab presents to ER with SOB. PMH is significant for large pelvic mass with mets, HTN , NIDDM, dementia, mild aortic stenosis, mild mitral insufficiency and subarachnoid cyst T2-T9. 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 Studies ekg-nsr, CXR-pul interstial edema with R pleural effusion, R basilar atelectasis vs consolidation, Chest/CTA-bilat effusion R>L small ascites, pulm nodule no PE, CXR#2-bilat effusion R>L, ECHO- EF 65-70%, atrial moderately to severely dilated, mild-mod MV regurge, mild-mod , small pericardial effusion, mild-mod tricuspid regurge, CXR#3-R pleural effusion improved, H/H 11.3/33, BUN/Cr 5/12, egfr 111, alb 3.1, BNP 512 and INR 1.08. Pt admitted with acute respiratory failure with hypoxia, hyponatremia and pelvic mass. Pt admitted previously 04/10-04/17 for R hip pain. All history is from family and medical record, pt unable to contribute to history. Lab Values: Abnormal Lab Results 05/07/19 05/07/19 05/07/19 06:16 06:16 06:16 WBC 6.9 RBC 3.61 L Hgb 10.7 L Hct 31 L MCV 87 MCH 30 MCHC 34 RDW 15 Plt Count 207 MPV 6.8 L Neut % (Auto) 52.9 Lymph % (Auto) 26.7 [place] % (Auto) 13.6 Eos % (Auto) 5.7 Baso % (Auto) 1.1 Absolute Neuts (auto) 3.7 Absolute Lymphs (auto) 1.9 Absolute Monos (auto) 0.9 H Absolute Eos (auto) 0.4 Absolute Basos (auto) 0.1 Absolute Nucleated RBC 0.0 Nucleated RBC % 0.0 Sodium 130 L Potassium 4.3 Chloride 94 L Carbon Dioxide 29 Anion Gap 7 BUN 14 Creatinine 0.51 Est GFR ( Amer) 138.0 Est GFR (Non-Af Amer) 114.1 BUN/Creatinine Ratio 27.5 H Glucose 154 H Hemoglobin A1c 7.5 H Calcium 8.9 Laboratory Last Values WBC 6.9 10^3/uL (3.5-10.8) 05/07/19 06:16 RBC 3.61 10^6 /uL (3.70-4.87) L 05/07/19 06:16 Hgb 10.7 g/dL (12.0-16.0) L 05/07/19 06:16 Hct 31 % (35-47) L 05/07/19 06:16 MCV 87 fL (80-97) 05/07/19 06:16 MCH 30 pg (27-31) 05/07/19 06:16 MCHC 34 g/dL (31-36) 05/07/19 06:16 RDW 15 % (10-15) 05/07/19 06:16 Plt Count 207 10^3/uL (150-450) 05/07/19 06:16 MPV 6.8 fL (7.4-10.4) L 05/07/19 06:16 Neut % (Auto) 52.9 % 05/07/19 06:16 Lymph % (Auto) 26.7 % 05/07/19 06:16 [place] % (Auto) 13.6 % 05/07/19 06:16 Eos % (Auto) 5.7 % 05/07/19 06:16 Baso % (Auto) 1.1 % 05/07/19 06:16 Absolute Neuts (auto) 3.7 10^3/ul (1.5-7.7) 05/07/19 06:16 Absolute Lymphs (auto) 1.9 10^3/ul (1.0-4.8) 05/07/19 06:16 Absolute Monos (auto) 0.9 10^3/ul (0-0.8) H 05/07/19 06:16 Absolute Eos (auto) 0.4 10^3/ul (0-0.6) 05/07/19 06:16 Absolute Basos (auto) 0.1 10^3/ul (0-0.2) 05/07/19 06:16 Absolute Nucleated RBC 0.0 10^3/ul 05/07/19 06:16 Nucleated RBC % 0.0 05/07/19 06:16 INR (Anticoag Therapy) 1.08 (0.82-1.09) 05/01/19 08:57 D-Dimer, Quantitative 691 ng/mL (Less Than 230) H 05/01/19 08:57 Sodium 130 mmol/L (135-145) L 05/07/19 06:16 Potassium 4.3 mmol/L (3.5-5.0) 05/07/19 06:16 Chloride 94 mmol/L (101-111) L 05/07/19 06:16 Carbon Dioxide 29 mmol/L (22-32) 05/07/19 06:16 Anion Gap 7 mmol/L (2-11) 05/07/19 06:16 BUN 14 mg/dL (6-24) 05/07/19 06:16 Creatinine 0.51 mg/dL (0.51-0.95) 05/07/19 06:16 Est GFR ( Amer) 138.0 (>60) 05/07/19 06:16 Est GFR (Non-Af Amer) 114.1 (>60) 05/07/19 06:16 BUN/Creatinine Ratio 27.5 (8-20) H 05/07/19 06:16 Glucose 154 mg/dL (70-100) H 05/07/19 06:16 POC Glucose (mg/dL) 168 mg/dL (70-100) H 05/06/19 11:32 Hemoglobin A1c 7.5 % (4.0-5.6) H 05/07/19 06:16 Lactic Acid 1.0 mmol/L (0.5-2.0) 05/01/19 08:57 Calcium 8.9 mg/dL (8.6-10.3) 05/07/19 06:16 Total Bilirubin 0.60 mg/dL (0.2-1.0) 05/01/19 08:57 AST 15 U/L (13-39) 05/01/19 08:57 ALT 6 U/L (7-52) L 05/01/19 08:57 Alkaline Phosphatase 59 U/L (34-104) 05/01/19 08:57 Troponin I 0.01 ng/mL (<0.03) 05/01/19 08:57 B-Natriuretic Peptide 512 pg/mL (<=100) H 05/01/19 08:57 Total Protein 5.7 g/dL (6.4-8.9) L 05/01/19 08:57 Albumin 3.1 g/dL (3.2-5.2) L 05/01/19 08:57 Globulin 2.6 g/dL (2-4) 05/01/19 08:57 Albumin/Globulin Ratio 1.2 (1-3) 05/01/19 08:57 Fluid Source Pleural 05/03/19 13:50 Fluid Volume 65 mL 05/03/19 13:50 Fluid Color Red 05/03/19 13:50 Fluid Appearance Bloody 05/03/19 13:50 Fluid WBC 868 /mcL (0-950482) 05/03/19 13:50 Fluid RBC 85448 /mcL 05/03/19 13:50 Fluid Tot Cell Count 100 05/03/19 13:50 Fluid Neutrophils 9 % 05/03/19 13:50 Fluid Lymphocytes 36 % 05/03/19 13:50 Fluid Monocytes 55 % 05/03/19 13:50 Fluid Cell Count Rvw By 05/03/19 13:50 Fluid Total Protein 2.6 g/dL 05/03/19 13:50 Fluid LDH 136 U/L 05/03/19 13:50 Fluid Comment 05/03/19 13:50 Influenza A (Rapid) Negative (Negative) 05/01/19 09:19 Influenza B (Rapid) Negative (Negative) 05/01/19 09:19 - Objective Active Medications: Albuterol/Ipratropium (Duoneb (Albuterol 2.5 Mg/Ipratropium 0.5 Mg)) 1 neb INH Q6H PRN PRN Reason: SOB/WHEEZING Ascorbic Acid (Vitamin C Tab*) 500 mg PO DAILY [facility] Last Admin: 05/07/19 10:25 Dose: 500 mg Atenolol (Tenormin Tab*) 100 mg PO BID [facility] Last Admin: 05/07/19 10:25 Dose: 100 mg Calcium Carbonate (Calcium Carbonate Tab*) 1,250 mg PO DAILY [facility] Last Admin: 05/07/19 10:25 Dose: 1,250 mg Cholecalciferol (Vitamin D Tab*) 1,000 units PO DAILY [facility] Last Admin: 05/07/19 10:24 Dose: 1,000 units Dextrose (Dextrose 50% Vial 50 Ml*) 25 ml IV PUSH .FOR FS < 60 - SS PRN PRN Reason: FS < 60 Furosemide (Lasix Tab*) 20 mg PO DAILY [facility] Last Admin: 05/07/19 10:24 Dose: 20 mg Glimepiride (Glimepiride (Nf)) 2 mg PO DAILY [facility] Last Admin: 05/07/19 10:25 Dose: 2 mg Lisinopril (Prinivil Tab*) 20 mg PO DAILY [facility] Last Admin: 05/07/19 10:24 Dose: 20 mg Metformin HCl (Glucophage*) 1,000 mg PO BID [facility] Last Admin: 05/07/19 10:24 Dose: 1,000 mg Multivitamins/Minerals (Theragran/Minerals Tab*) 1 tab PO DAILY [facility] Last Admin: 05/07/19 10:25 Dose: 1 tab Oxycodone/Acetaminophen (Percocet 5/325 Tab*) 1 tab PO Q4H PRN PRN Reason: PAIN - MODERATE Last Admin: 05/06/19 20:28 Dose: 1 tab Polyethylene Glycol/Electrolytes (Miralax*) 17 gm PO DAILY [facility] Last Admin: 05/07/19 10:23 Dose: 17 gm Senna (Senokot 8.6 Mg Tab*) 1 tab PO DAILY [facility] Last Admin: 05/07/19 10:25 Dose: 1 tab Vital Signs: Vital Signs: Temp Pulse Resp BP Pulse Ox 97.8 F 79 20 137/45 96 05/07/19 10:47 05/07/19 10:47 05/07/19 10:47 05/07/19 10:47 05/07/19 10:47 Patient Weight: Weight 72.575 kg Intake and Output: Intake & Output 05/05/19 05/06/19 05/07/19 05/08/19 06:59 06:59 06:59 06:59 Intake Total 900 360 360 Balance 900 360 360 Intake: Oral 900 360 360 Other: Estimated Void Small Medium Large # Bowel Movements 1 1 1 Estimated Stool Amount Small Small Small # Voids 2 0 0 ADLs: Meal Record Start: 05/01/19 14: 54 Freq: DAILY@0900,1400,1800 Status: Active Protocol: Created 05/01/19 14:54 System (Rec: 05/01/19 14:54 System D-SANDYA) Document 05/01/19 18:00 [id number] (Rec: 05/01/19 20:15 [id number] MEDL-C02) Document 05/02/19 09:00 [id number] (Rec: 05/02/19 09:35 [id number] MED-C11) Document 05/03/19 09:00 [id number] (Rec: 05/03/19 14:13 [id number] MED-C14) Document 05/03/19 14:00 [id number] (Rec: 05/03/19 14:16 [id number] MED-C14) Document 05/03/19 18:00 [id number] (Rec: 05/03/19 18:14 [id number] MED-C09) Document 05/04/19 08:38 [id number] (Rec: 05/04/19 08:39 [id number] MED-C11) Document 05/04/19 13:11 [id number] (Rec: 05/04/19 13:11 [id number] MED-C09) Document 05/04/19 18:00 [id number] (Rec: 05/04/19 18:58 [id number] MED-C11) Document 05/05/19 13:38 [id number] (Rec: 05/05/19 13:38 [id number] MED-C11) Document 05/05/19 18:00 [id number] (Rec: 05/05/19 21:29 IZQ4516 MED-C16) Document 05/06/19 09:00 [id number] (Rec: 05/06/19 09:43 [id number] MED-M09) Document 05/06/19 14:00 [id number] (Rec: 05/06/19 14:16 [id number] MED-C09) Document 05/06/19 18:00 [id number] (Rec: 05/06/19 18:08 [id number] MED-C09) Document 05/07/19 09:00 [id number] (Rec: 05/07/19 12:01 [id number] MED-C11) Intake and Output Start: 05/01/19 08: 39 Freq: Status: Active Protocol: Created 05/01/19 08:39 System (Rec: 05/01/19 08:39 System [id number]) Intake and Output Start: 05/01/19 14: 54 Freq: DAILY@0600,1400,2200 Status: Active Protocol: Created 05/01/19 14:54 System (Rec: 05/01/19 14:54 System D-SANDYA) Document 05/01/19 22:00 [id number] (Rec: 05/01/19 22:06 [id number] MED-C05) Document 05/02/19 06:00 [id number] (Rec: 05/02/19 06:28 [id number] MED-C11) Document 05/02/19 14:00 [id number] (Rec: 05/02/19 14:11 [id number] MED-C11) Document 05/02/19 22:00 [id number] (Rec: 05/02/19 22:42 [id number] MED-C04) Document 05/03/19 06:00 [id number] (Rec: 05/03/19 06:04 [id number] MED-C05) Document 05/03/19 14:00 [id number] (Rec: 05/03/19 14:20 [id number] MED-C14) Document 05/03/19 21:19 [id number] (Rec: 05/03/19 21:20 [id number] MED-C11) Document 05/04/19 05:35 [id number] (Rec: 05/04/19 05:35 WHM1313 MED-C11) Document 05/04/19 14:00 [id number] (Rec: 05/04/19 14:22 [id number] MED-C09) Document 05/04/19 21:57 [id number] (Rec: 05/04/19 21:58 [id number] MED-C11) Document 05/05/19 04:58 [id number] (Rec: 05/05/19 04:59 PSY0016 MED-C11) Document 05/05/19 13:38 [id number] (Rec: 05/05/19 13:38 [id number] MED-C11) Document 05/05/19 21:39 [id number] (Rec: 05/05/19 21:40 [id number] MED-C16) Document 05/06/19 05:36 [id number] (Rec: 05/06/19 05:37 [id number] MED-C07) Document 05/06/19 14:00 [id number] (Rec: 05/06/19 14:16 [id number] MED-C09) Document 05/06/19 21:43 [id number] (Rec: 05/06/19 21:43 [id number] MED-C07) Document 05/07/19 05:36 [id number] (Rec: 05/07/19 05:37 [id number] MED-C07) Eyes: No Scleral Icterus Ears/Nose/Mouth/Throat: NL Teeth, Lips, Gums Neck: NL Appearance and Movements; NL JVP Cardiovascular: NL Sounds; No Murmurs; No JVD Respiratory: Symmetrical Chest Expansion and Respiratory Effort Abdominal: NL Sounds; No Tenderness; No Distention Extremities: No Edema - Assessment Assessment: 89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 Family wants mom to be comfortable, not in pain and not undergo any aggressive care. Pt was unable to continue rehab at [facility] because there was an issue with pt's heels. They would prefer a bed at the hospice residence but there is no bed. Their second choice is a bed at [facility] because it is closer to them but there are no female beds. So pt will be going back to [facility] and requesting a hospice sign on. Once signed on they will let [facility] know they are still interested in a residence bed. MOLST was completed to reflect comfort care and copy given to son. Reviewed hospice services. We will continue to check if there is an opening at either facility. Pt is hospice eligible with a diagnosis of metastatic pelvic mass. KPS 30%, PPS 30%. - Time On Unit Date of Evaluation: 05/07/19 Hospice Consult Time in: 12:00 Hospice Consult Time Out: 13:00 Hospice Consult Time Total: 60 > 50% of Time Spend In Counseling or Coordinating Care: Yes
--- NOTE | 2019-05-07 15:08 | PN ---
Subjective Date of Service: 05/07/19 Interval History: denies sob.still on 02 Family History: Unchanged from Admission Social History: Unchanged from Admission Past Medical History: Unchanged from Admission Objective Active Medications: Albuterol/Ipratropium (Duoneb (Albuterol 2.5 Mg/Ipratropium 0.5 Mg)) 1 neb INH Q6H PRN PRN Reason: SOB/WHEEZING Ascorbic Acid (Vitamin C Tab*) 500 mg PO DAILY [facility] Last Admin: 05/07/19 10:25 Dose: 500 mg Atenolol (Tenormin Tab*) 100 mg PO BID [facility] Last Admin: 05/07/19 10:25 Dose: 100 mg Calcium Carbonate (Calcium Carbonate Tab*) 1,250 mg PO DAILY [facility] Last Admin: 05/07/19 10:25 Dose: 1,250 mg Cholecalciferol (Vitamin D Tab*) 1,000 units PO DAILY [facility] Last Admin: 05/07/19 10:24 Dose: 1,000 units Dextrose (Dextrose 50% Vial 50 Ml*) 25 ml IV PUSH .FOR FS < 60 - SS PRN PRN Reason: FS < 60 Furosemide (Lasix Tab*) 20 mg PO DAILY [facility] Last Admin: 05/07/19 10:24 Dose: 20 mg Glimepiride (Glimepiride (Nf)) 2 mg PO DAILY [facility] Last Admin: 05/07/19 10:25 Dose: 2 mg Lisinopril (Prinivil Tab*) 20 mg PO DAILY [facility] Last Admin: 05/07/19 10:24 Dose: 20 mg Metformin HCl (Glucophage*) 1,000 mg PO BID [facility] Last Admin: 05/07/19 10:24 Dose: 1,000 mg Multivitamins/Minerals (Theragran/Minerals Tab*) 1 tab PO DAILY [facility] Last Admin: 05/07/19 10:25 Dose: 1 tab Oxycodone/Acetaminophen (Percocet 5/325 Tab*) 1 tab PO Q4H PRN PRN Reason: PAIN - MODERATE Last Admin: 05/06/19 20:28 Dose: 1 tab Polyethylene Glycol/Electrolytes (Miralax*) 17 gm PO DAILY [facility] Last Admin: 05/07/19 10:23 Dose: 17 gm Senna (Senokot 8.6 Mg Tab*) 1 tab PO DAILY [facility] Last Admin: 05/07/19 10:25 Dose: 1 tab Vital Signs - 8 hr 05/07/19 05/07/19 05/07/19 07:24 10:30 10:47 Temperature 98.7 F 97.8 F Pulse Rate 80 79 Respiratory 22 22 20 Rate Blood Pressure 130/54 137/45 (mmHg) O2 Sat by Pulse 93 96 Oximetry Oxygen Devices in Use Now: Nasal Cannula Eyes: No Scleral Icterus Neck: NL Appearance and Movements; NL JVP Respiratory: Symmetrical Chest Expansion and Respiratory Effort, Clear to Auscultation Cardiovascular: NL Sounds; No Murmurs; No JVD Abdominal: NL Sounds; No Tenderness; No Distention Extremities: No Edema Neurological: Alert and Oriented x 3 Result Diagrams: 05/07/19 06:16 05/07/19 06:16 Microbiology and Other Data: Microbiology 05/01/19 12:20 Nasal Screen MRSA (PCR) - Final Nasal Mrsa Not Detected Assess/Plan/Problems-Billing Assessment: - Patient Problems (1) Acute respiratory failure with hypoxia Current Visit: Yes Status: Acute Code(s): J96.01 - ACUTE RESPIRATORY FAILURE WITH HYPOXIA SNOMED Code(s): 90182699 Comment: Due to pleural effusion, also has elevated BNP. improved (2) Pleural effusion Current Visit: Yes Status: Acute Code(s): J90 - PLEURAL EFFUSION, NOT ELSEWHERE CLASSIFIED SNOMED Code(s): 37780196 Comment: in setting of a large pelvic mass, there is a concern of malignant pleural effusion. received lasix, CXR 05/02 shows effusion was unchanged. status post thoracentesis 05/03. 850cc of sanguinious fluid drained. PATHOLOGY shows no malignant cells. lungs clear today, lasix was held will repeat CXR in am Can reaccumulate Will start on low dose lasix 20 mg po and reevaluate (3) Abdominal mass Current Visit: No Status: Acute Code(s): R19.00 - INTRA-ABD AND PELVIC SWELLING, MASS AND LUMP, UNSP SITE SNOMED Code(s): 682792923 Comment: large pelvic mass, family and patient has decided to not opt for further diagnostics and treatment regarding the mass interested in hospice, last admission met with palliative care physican as well. will request palliative care eval (4) Hyponatremia Current Visit: No Status: Acute Code(s): E87.1 - HYPO-OSMOLALITY AND HYPONATREMIA SNOMED Code(s): 80244497 Comment: improving if still low, can check urine serum osm and uric acid if plan to continue conservative med management (5) Diabetes Current Visit: No Status: Chronic Code(s): E11.9 - TYPE 2 DIABETES MELLITUS WITHOUT COMPLICATIONS SNOMED Code(s): 01608177 Comment: restart gimiperide, continue metformin. on insulin sliding scale hba1c in am stop ISS for comfort (6) HTN (hypertension) Current Visit: No Status: Chronic Code(s): I10 - ESSENTIAL (PRIMARY) HYPERTENSION SNOMED Code(s): 53086501 Comment: continue on her home dose of lisinopril and atenolol given her age would opt to keep her SBP < 160. BP was high this morning, but this was before her AM home medications. Status and Disposition: will work with CM regarding hospicare, or placement with SNF with hospice sign on. thus far it seems hospicare residence does not have availability.
[2019-05-08 07:02] LABS: ABS Basophils 0.1 10^3/ul (0-0.2); ABS Eosinophils 0.3 10^3/ul (0-0.6); ABS Monocytes 1.2 10^3/ul (0-0.8); ABS Neutrophils 5.9 10^3/ul (1.5-7.7); Eosinophil % 3.3 %; Hematocrit 34 % (35-47); Hemoglobin 11.3 g/dL (12.0-16.0); Mean Corpuscular HGB Conc 34 g/dL (31-36); Mean Corpuscular Hemoglobin 29 pg (27-31); Mean Corpuscular Volume 86 fL (80-97); Platelet Count 244 10^3/uL (150-450); Red Blood Count 3.88 10^6 /uL (3.70-4.87); Red Cell Distribution Width 15 % (10-15); White Blood Count 9.4 10^3/uL (3.5-10.8)
[2019-05-08 07:18] LABS: BUN/Creatinine Ratio 27.1 (8-20); Calcium 9.1 mg/dL (8.6-10.3); EGFR Non-African American 122.3 (>60); Potassium 4.1 mmol/L (3.5-5.0)
[2019-05-08] MEDS: Atenolol TAB* 50 MG PO SCH ×2 (08:27→21:30)
[2019-05-08] MEDS: CMCS: Glimepiride (NF) 2 MG TAB PO SCH (08:27)
[2019-05-08] MEDS: Lisinopril TAB* 10 MG PO SCH (08:27)
[2019-05-08] MEDS: Multivitamins/Minerals TAB PO SCH (08:27)
[2019-05-08] MEDS: metFORMIN* 500 MG TAB PO SCH ×2 (08:28→21:30)
[2019-05-08] MEDS: Ascorbic Acid TAB* 500 MG PO SCH (08:28)
[2019-05-08] MEDS: Cholecalciferol TAB* 1000 UNITS PO SCH (08:28)
[2019-05-08] MEDS: Furosemide TAB* 20 MG PO SCH (08:28)
[2019-05-08] MEDS: Calcium Carbonate TAB* 1250 MG (CALCIUM 500 MG) PO SCH (08:28)
[2019-05-08] MEDS: Polyethylene Glycol 3350* 17 GM PACKET PO SCH (09:01)
[2019-05-08] MEDS: Senna TAB 8.6 mg* TAB PO SCH (09:01)
--- NOTE | 2019-05-08 14:50 | PN ---
Subjective Date of Service: 05/08/19 Interval History: More lethargic today.Family working with case management and [facility] on placement. Tried to wean oxygen previously but more tachypnic and placed on oxygen. Family wants to pursue comfort care/hospice Family History: Unchanged from Admission Social History: Unchanged from Admission Past Medical History: Unchanged from Admission Objective Active Medications: Albuterol/Ipratropium (Duoneb (Albuterol 2.5 Mg/Ipratropium 0.5 Mg)) 1 neb INH Q6H PRN PRN Reason: SOB/WHEEZING Atenolol (Tenormin Tab*) 100 mg PO BID [facility] Last Admin: 05/08/19 08:27 Dose: 100 mg Furosemide (Lasix Tab*) 20 mg PO DAILY [facility] Last Admin: 05/08/19 08:28 Dose: 20 mg Glimepiride (Glimepiride (Nf)) 2 mg PO DAILY [facility] Last Admin: 05/08/19 08:27 Dose: 2 mg Lisinopril (Prinivil Tab*) 20 mg PO DAILY [facility] Last Admin: 05/08/19 08:27 Dose: 20 mg Metformin HCl (Glucophage*) 1,000 mg PO BID [facility] Last Admin: 05/08/19 08:28 Dose: 1,000 mg Morphine Sulfate (Morphine Oral Concentrate*) 5 mg SL Q2H PRN PRN Reason: PAIN - MODERATE Vital Signs - 8 hr 05/08/19 05/08/19 05/08/19 07:15 08:00 10:53 Temperature 98.9 F 99.3 F Pulse Rate 93 93 Respiratory 20 18 18 Rate Blood Pressure 164/70 150/61 (mmHg) O2 Sat by Pulse 93 91 91 Oximetry Oxygen Devices in Use Now: Nasal Cannula Eyes: No Scleral Icterus Ears/Nose/Mouth/Throat: NL Teeth, Lips, Gums Neck: NL Appearance and Movements; NL JVP Respiratory: Symmetrical Chest Expansion and Respiratory Effort, Clear to Auscultation Cardiovascular: NL Sounds; No Murmurs; No JVD Extremities: No Edema Neurological: - - more drowsy and confused today Result Diagrams: 05/08/19 06:50 05/08/19 06:50 Microbiology and Other Data: Microbiology 05/01/19 12:20 Nasal Screen MRSA (PCR) - Final Nasal Mrsa Not Detected Assess/Plan/Problems-Billing Assessment: - Patient Problems (1) Acute respiratory failure with hypoxia Current Visit: Yes Status: Acute Code(s): J96.01 - ACUTE RESPIRATORY FAILURE WITH HYPOXIA SNOMED Code(s): 74680127 Comment: Due to pleural effusion, also has elevated BNP. improved s/p thoracentesis (2) Pleural effusion Current Visit: Yes Status: Acute Code(s): J90 - PLEURAL EFFUSION, NOT ELSEWHERE CLASSIFIED SNOMED Code(s): 00283923 Comment: in setting of a large pelvic mass, there is a concern of malignant pleural effusion. received lasix, CXR 05/02 shows effusion was unchanged. status post thoracentesis 05/03. 850cc of sanguinious fluid drained. PATHOLOGY shows no malignant cells. on lasix 20 mg po Repeat CXR showed mild pul edema and started back on lasix (3) Abdominal mass Current Visit: No Status: Acute Code(s): R19.00 - INTRA-ABD AND PELVIC SWELLING, MASS AND LUMP, UNSP SITE SNOMED Code(s): 277685735 Comment: large pelvic mass, family and patient has decided to not opt for further diagnostics and treatment regarding the mass interested in hospice, last admission met with palliative care physican as well. appreciate dr escoto input working on placement (4) Hyponatremia Current Visit: No Status: Acute Code(s): E87.1 - HYPO-OSMOLALITY AND HYPONATREMIA SNOMED Code(s): 66492378 Comment: improved fam wants to pursue hospice (5) Diabetes Current Visit: No Status: Chronic Code(s): E11.9 - TYPE 2 DIABETES MELLITUS WITHOUT COMPLICATIONS SNOMED Code(s): 78861577 Comment: restart gimiperide, continue metformin. 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 .
[2019-05-08] MEDS: Morphine ORAL CONCENTRATE* 5 MG/0.25 ML ORAL.SYRIN SL PRN ×2 (15:25→18:35)
--- NOTE | 2019-05-08 17:04 | CONSULT ---
Subjective Date of Service: 05/08/19 Interval History: Ms. 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 She was admitted for acute hypoxic respiratory failure. Reports that the wounds have been present to the heels for a few months. It appears that they are treated with betadine. She is a resident of [facility]. Patient seen and examined at bedside. Verbal consent for wound assessment and photographs. Family History: Unchanged from Admission Social History: Unchanged from Admission Past Medical History: Unchanged from Admission Review of Systems - Measurements Intake and Output: Intake and Output Last 24 Hours 05/06/19 05/07/19 05/08/19 05/09/19 06:59 06:59 06:59 06:59 Intake Total 360 360 990 250 Balance 360 360 990 250 Intake: IV Fluids 10 10 NS (0.9%) 10 10 Oral 360 360 980 240 Other: Estimated Void Medium Large Medium # Bowel Movements 1 1 0 Estimated Stool Amount Small Small Medium Medium # Voids 0 0 1 - Review of Systems Constitutional Symptoms: Negative: Fever, Other - Chills Dermatology: Positive: Other - Wounds to bilateral heels Endocrinology: Positive: Diabetes Mellitus Objective Active Medications: Albuterol/Ipratropium (Duoneb (Albuterol 2.5 Mg/Ipratropium 0.5 Mg)) 1 neb INH Q6H PRN Reason: SOB/WHEEZING Atenolol (Tenormin Tab*) 100 mg PO BID [facility] Furosemide (Lasix Tab*) 20 mg PO DAILY [facility] Glimepiride (Glimepiride (Nf)) 2 mg PO DAILY [facility] Lisinopril (Prinivil Tab*) 20 mg PO DAILY [facility] Metformin HCl (Glucophage*) 1,000 mg PO BID [facility] Morphine Sulfate (Morphine Oral Concentrate*) 5 mg SL Q2H PRN Reason: PAIN - MODERATE Vital Signs - 8 hr 05/08/19 05/08/19 05/08/19 10:53 13:00 14:00 Temperature 99.3 F Pulse Rate 93 Respiratory 18 36 32 Rate Blood Pressure 150/61 (mmHg) O2 Sat by Pulse 91 Oximetry Oxygen Devices in Use Now: Nasal Cannula Appearance: NAD, laying in bed Ears/Nose/Mouth/Throat: Mucous Membranes Moist Respiratory: Symmetrical Chest Expansion and Respiratory Effort Extremities: - - 1+ bilateral LE DP pulses Skin: - - See skin note below Neurological: - - Alert and Oriented to Person and Place Nutrition: Taking PO's Result Diagrams: 05/08/19 06:50 05/08/19 06:50 Additional Lab and Data: Laboratory Tests 05/01/19 05/07/19 05/08/19 08:57 06:16 06:50 WBC 9.4 Hgb 11.3 L Hct 34 L Plt Count 244 Hemoglobin A1c 7.5 H Total Protein 5.7 L Albumin 3.1 L 05/08/19 06:50 Sodium 130 L Potassium 4.1 Chloride 93 L Carbon Dioxide 27 BUN 13 Creatinine 0.48 L Glucose 151 H Skin Deviation Note - Skin Deviation Findings Right heel - There are 2 wound present. The plantar aspect of the heel with an area of dark discoloration, skin is intact; this area measures 2.2 cm x 2.3 cm. There is a wound to the medial aspect of the right foot/ankle, the area measures 4.5 cm x 4.5 cm. The wound is dark purplish discoloration and dark tissue. The skin is intact and not open. There is no drainage. The surrounding skin is intact without erythema. Left heel - There is an ulcer to the medial/plantar aspect of the heel. The wound measures 3 cm x 3.5 cm x 0.1 cm. The wound base is 85% of dry dark necrotic tissue, 10 % adherent yellow slough, and 5 % red epithelial tissue. There is scant drainage. The surrounding skin is intact. Wound Problem/Plan Assessment: Ms. 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 She was admitted for acute hypoxic respiratory failure. She presented to the hospital with known deep tissue injuries to bilateral heels. 1. Bilateral heels with pressure related injuries, right heel with deep tissue injuries (DTIs) and left feel with unstageable pressure injury. These wounds have been present for a few months according to the patient and family. It appears that they have been treating the areas with Betadine and elevating heels. The patient and family have chosen Palliative care and Hospice. Will treat the wounds like palliative wounds, primary goal is for patient's comfort and not to heal the wounds. Recommend washing the feet as needed with soap and water. Place telfa over the wounds, followed by rolled gauze and change every other day or as needed. Keep the heels elevated off the bed either using pillows or multipodus boots. If patient is signed off Hospice, recommend obtaining ABIs to evaluate vascular status. Also consider obtaining a Prealbumin to evaluate nutritional status. Can also consider debriding the left heel with Santyl if the patient is doing well and life expectancy is greater than a few months. 2. DM2. HgA1C was 7.5. Maintain good glycemic control to allow for wound healing. 3. Nutrition. Recommend meeting nutritional requirements for wound healing ( protein 1.2-1.5 gram/kg per day and calories 30-35 kcal/kg per day). Consistent carbohydrate, soft diet. 4. Code status. DNR. 5. Disposition. Inpatient, disposition per primary medicine team. TIME SPENT: Time for this wound consultation was 25 minutes and 15 minutes was spent with the patient and family discussing past medical history; removing old dressings; assessing, measuring, and photographing the wounds; and reapplying new dressings. Is Patient a Wound Clinic Patient: No Attending: Josselyn Narayanan
[2019-05-08] MEDS: Acetaminophen ADULT LIQ* 650 MG/20.3 ML UDC PO PRN (18:35)
[2019-05-09] MEDS: metFORMIN* 500 MG TAB PO SCH (08:25)
[2019-05-09] MEDS: CMCS: Glimepiride (NF) 2 MG TAB PO SCH (08:25)
[2019-05-09] MEDS: Lisinopril TAB* 10 MG PO SCH (08:26)
[2019-05-09] MEDS: Atenolol TAB* 50 MG PO SCH (08:26)
[2019-05-09] MEDS: Furosemide TAB* 20 MG PO SCH (08:26)
[2019-05-09 08:36] VITALS: BP 112/53
[2019-05-09] MEDS: Morphine ORAL CONCENTRATE* 5 MG/0.25 ML ORAL.SYRIN SL PRN (10:53)
[2019-05-09] MEDS ORDERED: LORazepam TAB(*) 1 MG PO PRN (10:56)
[2019-05-09] MEDS ORDERED: Atropine 1% (ORAL/SL)* 15 ML BTL SL PRN (10:57)
[2019-05-09] MEDS ORDERED: Morphine INJ* 2 MG/ML 1 ML SYRINGE (TWO MG - NEW SYRINGE VERSION) IV PRN (11:52)
--- NOTE | 2019-05-09 14:58 | DS ---
CC: Dr. Jazmín Bravo; Dr. Clement at [facility] * DATE OF ADMISSION: 05/01/2019. DATE OF DISCHARGE: 05/09/2019. DISCHARGE DIAGNOSES: 1. Acute hypoxemic respiratory failure. 2. Pleural effusion. 3. Pelvic mass suspicious for malignancy. 4. Bilateral heel deep tissue injuries. SECONDARY DIAGNOSES: 1. Type 2 diabetes. 2. Hypertension. 3. Dementia. 4. Aortic stenosis. 5. 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 MEDICATIONS: 1. Acetaminophen 650 mg per rectum q.4 hours prn fever. 2. Albuterol/Ipratropium nebulized q.6 hours prn shortness of breath and wheezing. 3. Atropine 1% two drops sublingual q.2 hours prn terminal secretions. 4. Lorazepam 1 mg sublingual q.4 hours prn anxiety or agitation. 5. Morphine oral concentrate 5 mg sublingual q.2 hours prn pain or respiratory rate greater than 24. HOSPITAL COURSE: Ms. Reddy is an 89-year-old female with a past medical history as stated above who was brought in to the emergency room from [facility] due to hypoxia. The patient had recently been diagnosed with a large complex pelvic mass suspicious for malignancy and the patient and her family have opted for no further work-up and had requested hospice care. She had developed shortness of breath on the day of admission and the initial impression was that her respiratory failure was likely associated with a pleural effusion that at that point was concerning for malignant effusion considering her pelvic mass. The patient had a chest x-ray that showed pulmonary interstitial edema with right pleural effusion. She also had a CTA of the chest that showed bilateral pleural effusions, right greater than left with loculation, compressive atelectasis, and ascites; there are multiple scattered small pulmonary parenchymal nodules measuring up to 0.4 cm. A transthoracic echocardiogram showed an ejection fraction of 65 to 70 percent with mild to moderate aortic stenosis. The patient underwent ultrasound guided thoracentesis with drainage of 850 ml of sanguinous fluid. Pathology report was negative for malignant cells and total protein in the fluid was 2.6 with an LDH of 136. As described in the HPI, the patient's family were not interested in any further work-up and the patient was seen in consultation by Palliative Care ( Dr. David). Her impression is that the patient has a metastatic pelvic mass and that she would be hospice eligible for that diagnosis. The patient and family have elected to go to [facility] and plan to sign on to hospice there. A MOLST form was filled out to reflect her comfort care wishes and she is a do not resuscitate. The patient's condition has declined and today she was not awake enough to swallow p.o. meds, so she is being discharged on comfort care medications only, including sublingual Morphine, Lorazepam and Atropine. She was on multiple medications for her hypertension and diabetes, including Glimepiride, Furosemide , Lisinopril, Metformin, and Atenolol, as well as Oxycodone, but as described above today, she was not awake enough to be able to safely swallow those pills. When she arrives at [facility], she will be re-evaluated and depending on her mental status condition, some of those medications could be reintroduced. The patient will be discharged to [facility] today with plans for hospice sign on. PHYSICAL EXAMINATION: General: The patient is a frail, elderly lady, lying in bed in no acute distress. Vital Signs: Temperature 98.3, heart rate 73, respiratory rate 26, oxygen saturation is 98 percent on 2 liters nasal cannula, blood pressure is 112/53. CVS: Normal S1, S2, regular rate and rhythm. Chest : Breath sounds bilaterally, diminished in bases with no added sounds. Abdomen : Soft with no significant tenderness. Bowel sounds are present. Neuro: The patient is lethargic, opens eyes when called, but does not follow commands. DIET: Comfort care diet as tolerated. ACTIVITY: As tolerated. DISPOSITION: To [facility] to sign on with hospicare. STATUS WHILE IN THE HOSPITAL: Inpatient. CONDITION ON DISCHARGE: Guarded. Please keep in mind this is a summarized version of this patient's hospital stay. If you need more information, please feel free to call me at or please obtain the full medical records. [id number]/[facility] #: [id number] MTDD
[2019-05-09] MEDS: Acetaminophen ADULT LIQ* 650 MG/20.3 ML UDC PO PRN (15:54)
== END 2019-05-09 16:30 | DRG 186 ==
LOC: ED 08:32 → MED 14:04
PROVIDERS: ADMIT Internal Medicine; ATTEND Internal Medicine
PROC: 0W993ZX Drainage of Right Pleural Cavity, Percutaneous Approach, Diagnostic (ICD-10-PCS; principal; 2019-05-03)
DX: J90 Pleural effusion, not elsewhere classified (principal); J96.01 Acute respiratory failure with hypoxia; S24.102A Unspecified injury at T2-T6 level of thoracic spinal cord, initial encounter; J98.11 Atelectasis; E87.1 Hypo-osmolality and hyponatremia; L97.428 Non-pressure chronic ulcer of left heel and midfoot with other specified severity; L97.418 Non-pressure chronic ulcer of right heel and midfoot with other specified severity; R18.8 Other ascites; C76.3 Malignant neoplasm of pelvis; E11.621 Type 2 diabetes mellitus with foot ulcer; F03.90 Unspecified dementia, unspecified severity, without behavioral disturbance, psychotic disturbance, mood disturbance, and anxiety; I10 Essential (primary) hypertension; Z66 Do not resuscitate; I08.0 Rheumatic disorders of both mitral and aortic valves; G96.19 Other disorders of meninges, not elsewhere classified; R91.8 Other nonspecific abnormal finding of lung field; Z96.642 Presence of left artificial hip joint; X58.XXXA Exposure to other specified factors, initial encounter; Z79.84 Long term (current) use of oral hypoglycemic drugs; Z79.899 Other long term (current) drug therapy; Z88.8 Allergy status to other drugs, medicaments and biological substances; Z80.9 Family history of malignant neoplasm, unspecified; Z82.49 Family history of ischemic heart disease and other diseases of the circulatory system; Y92.9 Unspecified place or not applicable
CPT/HCPCS: 32555; 36415; 71045; 71046; 71275; 80048; 80053; 83036; 83605; 83615; 83880; 84157; 84484; 85025; 85379; 85610; 87070; 87205; 87641; 88112; 89051; 93005; 93306; 94640; 96372; 96374; 99284; A9270-GY; J1650; J1940; J2270; Q9967